=== PATIENT | male | born 1945 | race Caucasian/White ===

== ENCOUNTER 2021-03-21 14:19 | Inpatient (IN) | payer MEDICARE, SELFPAY ==
[2021-03-21 14:28] VITALS: BP 193/71; PULSE 71; RESP 26; TEMP 36.6; O2SAT 89; BMI 25.8
--- NOTE | 2021-03-21 14:47 | XRR_ITS ---
PROCEDURE INFORMATION: Exam: XR Chest Exam date and time: 03/21/2021 2:47 PM Age: 75 years old Clinical indication: Shortness of breath; Additional info: SOB TECHNIQUE: Imaging protocol: XR of the chest. Views: 1 view. COMPARISON: No relevant prior studies available. FINDINGS: Lungs: Right middle lobe and bilateral lower lobe atelectasis and/or pneumonia. Pleural spaces: Small bilateral pleural effusions. No pneumothorax. Heart/Mediastinum: Cardiac silhouette is moderately enlarged. Mediastinal contours are unremarkable. Vasculature: Atherosclerotic changes in the visualized arteries. Bones/joints: Unremarkable for age. XR/XR chest 1V portable [id number] IMPRESSION: 1. Right middle lobe and bilateral lower lobe atelectasis and/or pneumonia. Recommend followup chest x-ray to ensure resolution. 2. Small bilateral pleural effusions. 3. Incidental/nonacute findings are listed in the report.
--- NOTE | 2021-03-21 14:47 | ECG_ITS ---
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 Measurements Intervals [place] Rate: 70 P: [place]: QRS: 43 QRSD: 101 T: 54 QT: 424 QTc: 460 Interpretive Statements ATRIAL FIBRILLATION MODERATE ST DEPRESSION [0.05+ mV ST DEPRESSION] No previous ECG available for comparison Electronically Signed On 03-22-2021 19:12:38 CDT by Renetta Bonilla M.D. [id number]
[2021-03-21] MEDS: aspirin 325 mg Tablet PO (15:12)
--- NOTE | 2021-03-21 15:31 | ED_ITS ---
HPI - SOB/Dyspnea General: Chief Complaint: Shortness of Breath/Dyspnea Stated Complaint: SOB Time Seen by Provider: 03/21/21 14:39 History of Present Illness: HPI Narrative: This patient is a 75 year old male presenting from home with shortness of breath. He has had these symptoms for about 2 months. He has not seen his PCP in [place]. He called for an appointment but was told that she was out for a few weeks. He says that he has had pneumonia a fews times in the past few years and hasn't been back to normal since then. He has been told that he has a touch of emphysema and has had an oxygen concentrator at home, but hasn't had to use it until the last few days. He gets very SOB with laying down - notes that he absolutely can't lay down - and he also gets very short of breath with minimal exertion. Associated symptoms: Reports chest congestion, chest pain and orthopnea; Deny abdominal pain, fever(s), nausea or vomiting Review of Systems General: Reports: 10 or more systems reviewed and unremarkable except in HPI and below Const: Reports: fatigue, malaise and change in sleep pattern; Denies: fever(s) or chills Eyes: Denies: change in vision ENMT: Denies: odynophagia Card: Reports: chest pain, swelling of feet/ankles, dyspnea on exertion and orthopnea Resp: Reports: dyspnea and chest congestion; Denies: productive cough or non-productive cough GI: Denies: abdominal pain, nausea or vomiting : Denies: flank pain Musc: Denies: neck pain or back pain Skin/Breast: Denies: rash Neuro: Denies: headache(s), numbness in extremities or weakness in extremities Zach/Lymph: Denies: easy bruising or easy bleeding Physical Exam Const: COMMON NORMALS: patient oriented x3, no limitations and alert GENERAL APPEARANCE: cooperative and ill appearing NUTRITIONAL APPEARANCE: thin HENMT: HEAD & SCALP: normal to inspection FACE & SINUS: normal facial exam Eye: GENERAL EYE: appearance normal, both eyes and all related structures Neck/C-Spine: COMMON NORMALS: supple, no meningeal signs and no JVD Chest: COMMONS NORMALS: normal inspection of the chest Resp: COMMON NORMALS: normal respiratory effort EFFORT & INSPECTION: Yes uses accessory muscles AUSCULTATION: diminished lung sounds Cardio: COMMON NORMALS: no JVD, regular rate, regular rhythm and No murmurs present (Cardio) RATE: regular rate RHYTHM: regular rhythm GI: COMMON NORMALS: Normal to inspection, nondistended, normoactive bowel sounds present, Soft to palpation and non-tender INSPECTION: Yes normal to inspection AUSCULTATION: Yes normoactive bowel sounds PALPATION: Yes Soft to palpation Back/Pelvis: COMMON NORMALS: thoracic and lumbar spine normal to inspection Extremity: COMMON NORMALS: normal to inspection GENERAL: Yes edema (2+) Neuro: COMMON NORMALS: patient oriented x3, moves all extremities, no focal motor deficits and no sensory deficits noted SENSORIUM/ORIENTATION: Yes alert MENINGEAL SIGNS: Yes no meningeal signs Psych: COMMON NORMALS: mental status grossly normal, cooperative and normal affect Skin: COMMON NORMALS: no rashes or lesions noted and turgor normal GENERAL SKIN EXAM: no rashes or lesions noted and turgor normal Course ED course: Patient with orthopnea, JOHN, peripheral edema - no fever or cough. Suspect CHF. Pleural effusions noted on the CT - unable to give contrast to evaluate for PE. Atelectasis vs infiltrate. Patient requiring oxygen in the ED. He is agreeable to admission. Diuresis may be tricky due to poor renal function. Vital Signs: Vital signs: Vital Signs Temperature 97.9 F 03/21/21 14:28 Pulse Rate 69 03/21/21 18:00 Respiratory Rate 21 H 03/21/21 18:00 Blood Pressure 188/111 03/21/21 17:00 Pulse Oximetry 98 03/21/21 18:00 MDM - SOB/Dyspnea MDM Narrative: Medical decision making narrative: CHF, pneumonia, doubt COVID, COPD, SD Lab Data: Labs: Lab Results 03/21/21 03/21/21 03/21/21 Range/Units 15:39 15:39 15:39 WBC 9.5 (4.0-10.0) 10^3/ uL RBC 4.61 (4.1-5.3) 10^6/u L Hgb 13.1 (11.7-16.6) g/dL Hct 40.8 L (42.0-52.0) % MCV 88.5 (80-94) fl MCH 28.4 (28.0-34.0) pg MCHC 32.1 (30.0-36.0) g/dL RDW 14.9 (12.1-15.1) % Plt Count 229 (130-400) 10^3/c mm MPV 9.5 (7.4-10.4) fL Neut % (Auto) 75.4 % Lymph % (Auto) 16.5 % [place] % (Auto) 6.3 % Eos % (Auto) 0.8 % Baso % (Auto) 0.5 % Neut # (Auto) 7.16 (1.8-7.7) 10^3/u L Lymph # (Auto) 1.6 (0.8-4.8) 10^3/u L [place] # (Auto) 0.6 (0.2-0.9) 10^3/u L Eos # (Auto) 0.1 (0.0-0.8) 10^3/u L Baso # (Auto) 0.1 (0.0-0.1) 10^3/u L Nucleated RBC % (a uto) 0 % Nucleated RBCs # 0.0 /100WBC Sodium 132 L (136-145) mmol/L Potassium 4.0 (3.5-5.1) mmol/L Chloride 94 L (98-107) mmol/L Carbon Dioxide 27 (22-29) mmol/L Anion Gap 15.0 (5-19) BUN 25 H (8-23) mg/dL Creatinine 2.1 H (0.7-1.2) mg/dL GFR Calculation Not Reportable Glucose 137 H (65-115) mg/dL Calculated Osmolal ity 281 L (285-295) mOsm/k g Calcium 8.8 (8.5-10.5) mg/dL Total Bilirubin 0.4 (0.15-1.2) mg/dL AST 14 (0-40) U/L ALT 11 (0-41) U/L Alkaline Phosphata se 62 (40-130) IU/L Troponin T Baselin e 34 H (0-15) ng/L NT-Pro-B Natriuret Pep 5544 H (0-450) pg/mL Total Protein 6.6 (6.6-8.7) g/dL Albumin 4.2 (3.5-5.2) g/dL Globulin 2.4 (1.3-4.6) g/dL Urine Color (Yellow) Urine Appearance (CLEAR) Urine pH (5-7) Ur Specific Gravit y (1.005-1.030) Urine Protein (Negative) Urine Glucose (UA) (Normal) Urine Ketones (Negative) Urine Blood (Negative) Urine Nitrate (Negative) Urine Bilirubin (Negative) Urine Urobilinogen (Negative) mg/dL Ur Leukocyte Rima ase (Negative) Urine RBC (0-2) /hpf Urine WBC (0-5) /hpf Ur Squamous Epith Cells (0-5) /hpf Amorphous Sediment Urine Bacteria (NONE) /hpf 03/21/21 Range/Units 17:16 WBC (4.0-10.0) 10^3/ uL RBC (4.1-5.3) 10^6/u L Hgb (11.7-16.6) g/dL Hct (42.0-52.0) % MCV (80-94) fl MCH (28.0-34.0) pg MCHC (30.0-36.0) g/dL RDW (12.1-15.1) % Plt Count (130-400) 10^3/c mm MPV (7.4-10.4) fL Neut % (Auto) % Lymph % (Auto) % [place] % (Auto) % Eos % (Auto) % Baso % (Auto) % Neut # (Auto) (1.8-7.7) 10^3/u L Lymph # (Auto) (0.8-4.8) 10^3/u L [place] # (Auto) (0.2-0.9) 10^3/u L Eos # (Auto) (0.0-0.8) 10^3/u L Baso # (Auto) (0.0-0.1) 10^3/u L Nucleated RBC % (a uto) % Nucleated RBCs # /100WBC Sodium (136-145) mmol/L Potassium (3.5-5.1) mmol/L Chloride (98-107) mmol/L Carbon Dioxide (22-29) mmol/L Anion Gap (5-19) BUN (8-23) mg/dL Creatinine (0.7-1.2) mg/dL GFR Calculation Glucose (65-115) mg/dL Calculated Osmolal ity (285-295) mOsm/k g Calcium (8.5-10.5) mg/dL Total Bilirubin (0.15-1.2) mg/dL AST (0-40) U/L ALT (0-41) U/L Alkaline Phosphata se (40-130) IU/L Troponin T Baselin e (0-15) ng/L NT-Pro-B Natriuret Pep (0-450) pg/mL Total Protein (6.6-8.7) g/dL Albumin (3.5-5.2) g/dL Globulin (1.3-4.6) g/dL Urine Color Yellow (Yellow) Urine Appearance Clear (CLEAR) Urine pH 7 (5-7) Ur Specific Gravit y 1.005 (1.005-1.030) Urine Protein 1+ H (Negative) Urine Glucose (UA) Norm (Normal) Urine Ketones Negative (Negative) Urine Blood Neg (Negative) Urine Nitrate Negative (Negative) Urine Bilirubin Neg (Negative) Urine Urobilinogen Norm (Negative) mg/dL Ur Leukocyte Rima ase Negative (Negative) Urine RBC None (0-2) /hpf Urine WBC None (0-5) /hpf Ur Squamous Epith Cells None (0-5) /hpf Amorphous Sediment Not Reportable Urine Bacteria None (NONE) /hpf Discharge Plan Discharge Patient Disposition: Admitted As Inpatient Clinical Impression: Congestive heart failure, Pleural effusion, bilateral, Hypoxia, Acute kidney injury Condition: Stable Prescriptions: No Action metformin 500 mg Tablet 500 mg PO BID RF: 0 lisinopril-hydrochlorothiazide 20-12.5 mg Tablet 1 tab PO BID RF: 0 hydralazine 25 mg Tablet 25 mg PO TID RF: 0 amlodipine 10 mg Tablet 10 mg PO DAILY RF: 0 metoprolol tartrate 50 mg Tablet 50 mg PO BID RF: 0 aspirin 81 mg Tablet,Chewable 81 mg PO DAILY RF: 0 doxazosin 2 mg tablet 2 mg PO BEDTIME RF: 0 Referrals: Cristine Raza [Primary Care Provider] - Patient Instructions: Opioid Safety Coding Level of Care Code ED Scrap Drop Operator for Kori Fwd Exam Comprehensive
[2021-03-21 15:50] LABS: Basophils # 0.1 10^3/uL (0.0-0.1); Basophils % 0.5 %; Eosinophils # 0.1 10^3/uL (0.0-0.8); Eosinophils % 0.8 %; Hematocrit 40.8 % (42.0-52.0); Hemoglobin 13.1 g/dL (11.7-16.6); Lymphocytes # 1.6 10^3/uL (0.8-4.8); Lymphocytes % 16.5 %; Mean Corpuscular HGB Conc 32.1 g/dL (30.0-36.0); Mean Corpuscular Hemoglobin 28.4 pg (28.0-34.0); Mean Corpuscular Volume 88.5 fl (80-94); Mean Platelet Volume 9.5 fL (7.4-10.4); Monocytes # 0.6 10^3/uL (0.2-0.9); Monocytes % 6.3 %; Neutrophils # 7.16 10^3/uL (1.8-7.7); Neutrophils % 75.4 %; Nucleated Red Blood Cells % 0 %; Platelet Count 229 10^3/cmm (130-400); Red Blood Count 4.61 10^6/uL (4.1-5.3); Red Cell Distribution Width 14.9 % (12.1-15.1); White Blood Count 9.5 10^3/uL (4.0-10.0)
[2021-03-21 16:00] VITALS: BP 181/87; PULSE 63; RESP 22; O2SAT 98
[2021-03-21 16:24] LABS: Troponin(5th) Baseline 34 ng/L (0-15)
[2021-03-21 16:33] LABS: Alanine Aminotransferase 11 U/L (0-41); Albumin Level 4.2 g/dL (3.5-5.2); Alkaline Phosphatase 62 IU/L (40-130); Aspartate Amino Transferase 14 U/L (0-40); Blood Urea Nitrogen 25 mg/dL (8-23); Calcium 8.8 mg/dL (8.5-10.5); Carbon Dioxide 27 mmol/L (22-29); Chloride 94 mmol/L (98-107); Globulin 2.4 g/dL (1.3-4.6); Glucose 137 mg/dL (65-115); NT Pro B Type Natriuretic Pept 5544 pg/mL (0-450); Osmolality Calculated 281 mOsm/kg (285-295); Sodium 132 mmol/L (136-145); Total Bilirubin 0.4 mg/dL (0.15-1.2); Total Protein 6.6 g/dL (6.6-8.7)
--- NOTE | 2021-03-21 16:48 | CTR_ITS ---
PROCEDURE INFORMATION: Exam: CT Chest Without Contrast; Diagnostic Exam date and time: 03/21/2021 4:48 PM Age: 75 years old Clinical indication: Shortness of breath; Additional info: SOB, abnormal cxr TECHNIQUE: Imaging protocol: Diagnostic computed tomography of the chest without contrast. Sagittal and coronal reformatted images were created and reviewed. Radiation optimization: All CT scans at this facility use at least one of these dose optimization techniques: automated exposure control; mA and/or kV adjustment per patient size (includes targeted exams where dose is matched to clinical indication); or iterative reconstruction. COMPARISON: CR (CHEST, ) 03/21/2021 2:54 PM RADIATION DOSE METRICS: Total DLP (mGy-cm): 824.92 FINDINGS: Limitations: Evaluation of the mediastinum and vasculature is limited without intravenous contrast. Lungs: Tracheobronchial structures are patent. Calcified granulomas in the right upper lobe and righ lower lobe. Compressive atelectasis in the the lungs posteriorly, underlying pneumonia cannot be ruled out. Pleural spaces: Large bilateral pleural effusions. Heart: Moderate enlargement of the heart. Extensive atherosclerotic calcification in the coronary arteries. Calcification of the aortic valve. Mediastinal space: The esophagus is unremarkable. No mediastinal hematoma. No pneumomediastinum. Aorta: Extensive atherosclerotic changes in the visualized arteries. No evidence for aortic aneurysm. Lymph nodes: No lymphadenopathy. Liver: The visualized liver is unremarkable. Gallbladder and bile ducts: Multiple stones in the visualized gallbladder. No dilatation of the visualized bile ducts. Pancreas: The pancreas is unremarkable. No pancreatic ductal dilatation. Spleen: Multiple calcified granulomas in the spleen. Adrenal glands: The right and left adrenal glands are unremarkable. Kidneys and ureters: The visualized right kidney is unremarkable. Mild atrophy of the visualized left kidney. Bones/joints: Multilevel degenerative changes of varying severity in the visualized spine. Calcification of the anterior longitudinal ligament at multiple levels in the thoracic spine, possibly representing diffuse idiopathic skeletal hyperostosis (DISH). Soft tissues: Mild body wall edema. CT/CT chest wo con [id number] IMPRESSION: 1. Large bilateral pleural effusions with compressive atelectasis in the the lungs posteriorly, underlying pneumonia cannot be ruled out. Recommend clinical correlation. Recommend followup chest imaging to insure resolution of these findings. 2. Cholelithiasis. 3. Mild body wall edema. 4. Incidental/nonacute findings are listed in the report. Radiation Dose CTDIVOL = (mGy): DLP = 824.92 (mGy-cm)
--- NOTE | 2021-03-21 16:48 | ECG_ITS ---
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 Measurements Intervals [place] Rate: 75 P: [place]: QRS: 47 QRSD: 88 T: 77 QT: 393 QTc: 439 Interpretive Statements ATRIAL FIBRILLATION Compared to ECG 03/21/2021 15:21:56 ST (T wave) deviation no longer present Electronically Signed On 03-22-2021 19:22:23 CDT by Renetta Bonilla M.D. [id number]
[2021-03-21 17:00] VITALS: BP 188/111; PULSE 67; RESP 19; O2SAT 97
[2021-03-21 17:47] LABS: Add Urine Microscopic? YES; Bilirubin Urine Neg (Negative); Blood Urine Neg (Negative); Glucose Urine UA Norm (Normal); Ketones Urine Negative (Negative); Leukocyte Esterase Urine Negative (Negative); Nitrate Urine Negative (Negative); Protein Urine 1+ (Negative); Specific Gravity, Urine 1.005 (1.005-1.030); Urine Appearance Clear (CLEAR); Urine Color Yellow (Yellow); Urobilinogen Urine Norm (Negative); pH Urine 7 (5-7)
[2021-03-21 17:59] LABS: Add Urine Culture? No
[2021-03-21 18:00] VITALS: PULSE 69; RESP 21; O2SAT 98
--- NOTE | 2021-03-21 18:07 | PM.HP ---
Providers/Chief Complaint Admitting Physician: Lisa Barger MD Primary Care Provider: Cristine Raza Chief Complaint: SOB History of Present Illness Ole Maldonado is a 75 year old male with PMH HTN, BPH presenting today with progressively worsening dyspnea over past 2-3 months, made particularl worse over the past week. Patient states that he was initially unable to climb stairs and was walking less than usual distance however now becoming dyspneic when ambulating within the home. Orthopnea+ He was evaluated at an outside hospital 3 2 months ago for the above symptoms where he was told he has emphysema and suppemetal 02 was recommended for home use, however patient states this was not covered by his insurance and he could not pay the out of pocket cost. He denies being on any inhalers. Endorses being on water pill , per home medication review this appears to be HCTZ. States he was ruled out for pneumonia at that time. Currently denies any chest pain, cough, sputum production or fever. He is an ex smoker quit many years ago. He has additionally noticed B/L LE swelling and abdominal bloating. BP has been poorly controlled at home. Uncertain h/o CAD, states he was told he had a heart attack in the setting of a rib fracture over 20 years ago, however denies ever having had an angiogram or stress test. No h/o knownn CHF. Diagnostics in the ER today show mildly elevated troponin ~30s range with negative delta, BNP 5500, CT chest with large B/L pleural effusions R>L, STEVEN with cr 2.1. He is unvaccinated for Covid 19. Review of Systems General: Reports: 10 or more systems reviewed and unremarkable except in HPI and below Const: Denies: fever(s), chills, body aches, change in appetite, change in weight, malaise, night sweats, diaphoresis, change in sleep pattern, daytime sleepiness or snoring Eyes: Denies: change in vision, blurry vision, photophobia, eye discomfort or eye discharge ENMT: Denies: throat pain, enlarged tonsils, hoarseness, mouth pain, oral sores, dry mouth, tinnitus, nasal congestion or post nasal drip Card: Denies: chest pain, palpitations, irregular heart rhythm, edema, swelling of feet/ankles, lightheadedness, syncope, pre-syncope, dyspnea on exertion, orthopnea, leg pain with exertion or acrocyanosis Resp: Denies: dyspnea, productive cough, non-productive cough, wheezing, stridor, pain on inspiration, change in phlegm color, hemoptysis or chest congestion GI: Denies: abdominal pain, nausea, vomiting, hematemesis, coffee ground emesis, dysphagia, heartburn, diarrhea, constipation, bloating, GI cramping, change in bowel habits, pain on defecation, hematochezia or melena : Denies: flank pain, difficulty urinating, dysuria, urinary frequency, urinary urgency, urinary hesitancy, urinary dribbling, difficulty starting urination, change in urine stream, nocturia or hematuria Musc: Denies: neck pain, back pain, extremity pain, joint pain, joint swelling, joint redness, joint stiffness or limited range of motion Neuro: Denies: headache(s), numbness in extremities, weakness in extremities, sensory changes, lack of coordination, difficulty walking, frequent falls, dizziness, vertigo, confusion, Slurred speech present, difficulty communicating thoughts or seizure-like activity Psych: Denies: anxiety, depression, mood swings, panic attacks, hopelessness or irritability Endo: Denies: polyuria, polydipsia, tired all the time, cold intolerance, excessive sweating, flushing or heat intolerance Zach/Lymph: Denies: easy bruising or easy bleeding All/Imm: Denies: tongue swelling, facial swelling or acute wheezing Medications/Allergies Home Medications Medication Instructions Recorded Confirmed Last Taken Type amlodipine 10 mg PO DAILY 03/21/21 03/21/21 03/20/21 History aspirin 81 mg PO DAILY 03/21/21 03/21/21 03/21/21 History doxazosin 2 mg PO BEDTIME 03/21/21 03/21/21 03/20/21 History hydralazine 25 mg PO TID 03/21/21 03/21/21 03/21/21 History lisinopril-hydrochlorothiazide 1 tab PO BID 03/21/21 03/21/21 03/21/21 History metformin 500 mg PO BID 03/21/21 03/21/21 03/21/21 History metoprolol tartrate 50 mg PO BID 03/21/21 03/21/21 03/21/21 History Allergies Allergy/AdvReac Type Severity Reaction Status Date / Time No Known Allergies Allergy Verified 03/21/21 14:33 PFSH Acute PFSH: Medical History (Updated 03/22/21 @ 05:14 by Juno Durham MD) Diabetes mellitus Hypertension Tobacco abuse Vitals/I&O/Wt Last Vital Signs Temp 97.9 F 03/21/21 14:28 Pulse 67 03/21/21 17:00 Resp 19 H 03/21/21 17:00 BP 188/111 03/21/21 17:00 Pulse Ox 97 03/21/21 17:00 Weight last 48 hrs Weight 77.111 kg Physical Exam Narrative: EXAM NARRATIVE: EXAM NARRATIVE: General: No acute distress, AO x3, NC oxygen supplementation HEENT: PERRLA, pupils bilaterally equal and reactive Chest: B/L reduced air entry at lung bases, no wheezing CVS: S1-S2 regular, no murmurs, no tachycardia, no gallops, no rubs Abdomen: Soft, nontender, no organomegaly, bowel sounds present Neuro: No focal deficits, no facial deformity, AO x3, power 5/5 in all limbs\ EXT: 1+ pitting edema B/L LE Data : 03/21/21 15:39 03/21/21 15:39 A&P Assessment and plan (1) Hypoxia: Status: Acute (2) Pleural effusion, bilateral: Status: Acute (3) Congestive heart failure: Status: Acute (4) Acute kidney injury: Status: Acute (5) Hyponatremia: Status: Acute (6) Hypertension: Status: Acute (7) Diabetes mellitus: Status: Acute Additional A&P Information Hypoxia: Most likely secondary to congestive heart failure. Less likely pneumonia. Patient does not have leukocytosis, fever with history suggestive of orthopnea and PND. Check echocardiogram, troponin series, blood culture, sputum culture, urine Legionella, bacterial antigen, proBNP,MRSA swab, procalcitonin. Start patient on IV Lasix 60 mg twice daily. Strict input output charting. Brito catheter. Daily weights. Fluid restriction. Depending on the echocardiogram if patient has low EF for regional motion wall abnormality will decide about ischemic versus nonischemic work-up with possible stress test once patient is more euvolemic. Oxygen supplementation keeping saturation over 90%. History of COPD: Mild exacerbation. No need of steroids for now. DuoNebs every 6 hour, budesonide twice daily. Bilateral pleural effusion: Right >left. Will obtain thoracentesis with pleural fluid analysis Less likely pneumonia. For now hold off on starting antibiotics. We will continue to monitor for fever, worsening leukocytosis or oxygen requirement before starting antibiotics. Acute kidney injury: Creatinine 2.1. On review of records in 2019 patient's creatinine was within normal limits. Could be secondary to congestive heart failure but cannot rule out hypertensive chronic kidney disease. Check urine lites, urine creatinine, urine eosinophils, renal ultrasound. Medical reconciliation done for nephrotoxic drugs. Hypertension: Goal blood pressure less than 140/90 mmHg. Continue with home antihypertensives including hydralazine, amlodipine, metoprolol. Hold off on lisinopril given STEVEN. Type 2 diabetes mellitus: Check HbA1c, lipid panel. Insulin sliding scale at low-dose protocol. Cardiac carb consistent diet. Heparin for DVT prophylaxis. Famotidine for PUD prophylaxis. Admit to CSU. Attestations Medical Necessity Statement*: Admission for more than 2 midnights for management of new hypoxia most likely secondary to congestive heart failure Time Spent in Patient Care: Greater than 35 minutes (>than 50% of time spent in counselling and/or direct pt care on unit). Coding Level of Care Code Acute Retail Loss Prevention Specialist for [facility] Diagnoses Hypoxia R09.02 Pleural effusion, bilateral J90 Congestive heart failure I50.9 Acute kidney injury N17.9 Hyponatremia E87.1 Hypertension I10 Diabetes mellitus E11.9
[2021-03-21 18:36] LABS: Amphetamines Screen Urine Negative (Negative); Barbiturates Screen Urine Negative (Negative); Benzodiazepines Screen Urine Negative (Negative); Cocaine Screen Urine Negative (Negative); Opiate Screen Urine Negative (Negative); PCP Screen Urine Negative (Negative); THC Screen Urine Negative (Negative)
[2021-03-21 18:51] LABS: SARS Covid-2 Antigen Negative (Negative)
[2021-03-21] MEDS: famotidine 20 mg/2 mL INJ IVP (19:10)
[2021-03-21 19:26] LABS: INR 1.11 (0.8-1.2)
[2021-03-21 19:27] LABS: Potassium, Radom Urine 16 mmol/L; Urine Creatinine 20 mg/dL (39-259); Urine Random Chloride 40 mmol/L; Urine Random Sodium 45 mmol/L
[2021-03-21 19:30] LABS: D Dimer 1.17 ug/mIFEU (0-0.59)
[2021-03-21 19:44] LABS: Troponin 5 2HR 30.23 ng/L (0-15)
[2021-03-21 19:46] LABS: Troponin 5 2HR Delta -3.77 ABS# (0-10)
[2021-03-21 19:50] LABS: Procalcitonin 0.11 ng/mL (0-0.5)
[2021-03-21 19:54] LABS: Thyroid Stimulating Hormone 2.47 uIU/mL (0.27-4.20)
[2021-03-21] MEDS: heparin 5,000 unit/mL INJ 1 mL 5000 UNIT SUBCUT (21:16)
[2021-03-21] MEDS: hyDRALAzine 25 mg Tablet PO (21:18)
[2021-03-21] MEDS: metoprolol tartrate 50 mg Tablet PO (21:18)
[2021-03-21 21:28] VITALS: BP 186/98; PULSE 74; RESP 18; O2SAT 98
[2021-03-21 22:00] LABS: Iron 36 ug/dL (59-158); Percent Saturation 12.9 % (20-50); Total Iron Binding Capacity 278 mcg/dl; Unsaturated Iron Binding 242 ug/dL (112-347)
[2021-03-21] MEDS: doxazosin 1 mg Tablet 2 MG PO (22:03)
[2021-03-21 22:40] LABS: Troponin 5 6HR 33.33 ng/L (0-15)
[2021-03-21 22:48] LABS: Troponin 5 6HR Delta -0.67 ng/L (0-12)
[2021-03-21 23:34] LABS: Eosinophil Urine No Eosinophils Seen; Urine Eosinophil Count 0 (0-0)
[2021-03-22] VITALS (44 sets, daily range): BP systolic 131–180; BP diastolic 60–97; PULSE 55–84; RESP 13–25; TEMP 36.5–36.6; O2SAT 93–99
[2021-03-22] MEDS: FUROsemide 10 mg/mL SDV 10mL 60 MG IVP ×3 (00:14→21:17)
[2021-03-22 05:05] LABS: Basophils # 0.1 10^3/uL (0.0-0.1); Basophils % 0.6 %; Eosinophils # 0.1 10^3/uL (0.0-0.8); Eosinophils % 0.9 %; Hematocrit 38.3 % (42.0-52.0); Hemoglobin 12.3 g/dL (11.7-16.6); Lymphocytes # 2.4 10^3/uL (0.8-4.8); Lymphocytes % 22.7 %; Mean Corpuscular HGB Conc 32.1 g/dL (30.0-36.0); Mean Corpuscular Hemoglobin 28.8 pg (28.0-34.0); Mean Corpuscular Volume 89.7 fl (80-94); Mean Platelet Volume 9.9 fL (7.4-10.4); Monocytes # 0.9 10^3/uL (0.2-0.9); Monocytes % 8.5 %; Neutrophils # 7.11 10^3/uL (1.8-7.7); Neutrophils % 66.7 %; Nucleated Red Blood Cells % 0 %; Platelet Count 223 10^3/cmm (130-400); Red Blood Count 4.27 10^6/uL (4.1-5.3); Red Cell Distribution Width 14.8 % (12.1-15.1); White Blood Count 10.7 10^3/uL (4.0-10.0)
[2021-03-22 05:20] LABS: Alanine Aminotransferase 10 U/L (0-41); Albumin Level 3.8 g/dL (3.5-5.2); Alkaline Phosphatase 54 IU/L (40-130); Anion Gap 12.8 (5-19); Aspartate Amino Transferase 13 U/L (0-40); Blood Urea Nitrogen 22 mg/dL (8-23); Calcium 8.6 mg/dL (8.5-10.5); Carbon Dioxide 31 mmol/L (22-29); Chloride 98 mmol/L (98-107); Chol HDL Ratio 2.42 mg/dL (1.0-5.00); Cholesterol 145 mg/dL (0-200); Globulin 2.2 g/dL (1.3-4.6); Glucose 93 mg/dL (65-115); HDL Cholesterol 60 mg/dL (60-100); LDL Cholesterol Calculated 68 mg/dL (50-129); Magnesium 1.9 mg/dL (1.7-2.3); Osmolality Calculated 289 mOsm/kg (285-295); Phosphorus 3.3 mg/dL (2.5-4.5); Potassium 3.8 mmol/L (3.5-5.1); Sodium 138 mmol/L (136-145); Total Bilirubin 0.6 mg/dL (0.15-1.2); Triglycerides 85 mg/dL (0-150); VLDL Cholestrol Calculation 17 mg/dL (0-30)
[2021-03-22 05:22] LABS: Lactate Dehydrogenase 145 U/L (135-225)
[2021-03-22 05:39] LABS: Estmated Average Glucose 123; Hemoglobin A1C 5.9 % (4.0-6.0)
--- NOTE | 2021-03-22 08:39 | PC.CHAP ---
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 mixer and scaler visit [] Patient/Family/Request visit [] Outpatient visit [] Follow-up visit [] Physician referral [] Code/Alert [x] Routine visit [] Staff referral [] Actively dying [] Patient sleeping [] Family support [] [] Out of room [] Palliative care [] [] Receiving care in room [] Pre-surgical visit [] Trauma [] Long length of stay [] ICU visit [] Other: Relational/Emotional Strength [] Patient feels connected with others/family/visitors/staff [] Distress [] Loneliness/isolation [] Abandonment Spirituality of Patient [] Person of Eulalia [] Attends Islam of their Eulalia [] Believes in Prayer [] Reads Bible or Oriental Orthodox materials [] There are Spiritual issues to be addressed Supervisor Abattoir Interventions [x] Prayer [x] Active listening [x] Non-anxious presence [x] Spiritual/emotional support [] Crisis/trauma care [] Spiritual counseling [] Bereavement support [] Provided bereavement packet [] Provided Bible/devotional materials [] Provided toy/stuffed animal, coloring book to patient or family member [] Provided Communion [] Anointing/[place] [] Salvation [x] Completed spiritual assessment [] Other: Impact on Illness or Injury [] Angry [] Fearful [] Anxious [] Often cries [] Exhaustion [] Unable to work [] Unable to attend church [] Unable to walk/stand [] Unable to read [] Unable to drive [] Unable to eat/drink [] Unable to sleep [] Unable to be with family [] Patient intubated [] Other: Summary patient just arrived to room... not sure of issues, just doesnt feel well Time spent with patient 10 min
[2021-03-22] MEDS: ipratropium-albuterol 3 mL Neb INHALATION ×4 (09:07→19:50)
--- NOTE | 2021-03-22 09:30 | PM.PN ---
Documented by User: RICH Amaya STDNT 03/22/21 14:03 Subjective Subjective: Interval history: Joel states that he feels better this morning. His shortness of breath has improved. He is currently on 2 L of oxygen, this is his normal at home. He denies fever, chills, chest pain and productive cough. His lower extremity edema has improved. Medications: Reviewed: Yes Vitals/I&O/Wt Last Vital Signs Temp 97.9 F 03/21/21 14:28 Pulse 68 03/22/21 09:13 Resp 16 03/22/21 09:13 BP 162/97 03/22/21 07:56 Pulse Ox 97 03/22/21 09:13 Weight last 48 hrs Weight 77.111 kg Physical Exam Narrative: EXAM NARRATIVE: General: No acute distress, NC oxygen supplementation 2 L HEENT: Pupils reactive, oropharynx clear. Neck supple no JVD or lymphadenopathy. Chest: B/L reduced air entry at lung bases, no wheezing. Cardio: Irregularly irregular rhythm. No murmurs. Abdomen: Distended, nontender, no organomegaly, bowel sounds present. Neuro: No focal deficits, no facial deformity, AO x3, strength 5/5 in all limbs EXT: No cyanosis, clubbing, or edema. Brito noted. Urinary Catheter Management^: Brito: Cath Placed During This Visit: yes Urinary Catheter Date of Insertion: 03/21/21 Urinary Catheter Time of Insertion: 23:27 Data : 03/22/21 04:40 03/22/21 04:40 Micro: Microbiology 03/21/21 17:16 Bacterial Antigens - Final Urine Kidney 03/21/21 17:16 Legionella Urinary Antigen - Final Urethra 03/21/21 18:53 Blood Culture - Preliminary Blood SPECIMEN COLLECTED 03/21/21 18:47 Blood Culture - Preliminary Blood SPECIMEN COLLECTED Other data: Hemoglobin A1c 5.9 Magnesium 1.9 LDH 145 Troponin 34. Troponin T 120-minute 30.23. Delta troponin -3.77. Triglycerides 85, cholesterol 145, LDL 68, VLDL 17, HDL 60 Procalcitonin 0.1 TSH 2.47 Urine eosinophils negative Legionella urinary antigen negative Urine bacterial antigens negative Blood cultures pending A&P Assessment and plan (1) Hypoxia: Status: Acute (2) Pleural effusion, bilateral: Status: Acute (3) Congestive heart failure: Status: Acute (4) Acute kidney injury: Status: Acute (5) Hyponatremia: Status: Acute (6) Hypertension: Status: Acute (7) Diabetes mellitus: Status: Acute Additional A&P Information Hypoxia: Most likely secondary to congestive heart failure. Less likely pneumonia. Patient does not have leukocytosis, productive cough, or fever. Has history orthopnea and PND. Urine Legionella negative. Urine bacterial antigen negative. Blood cultures pending. Currently on 2 L oxygen NC. Oxygen supplementation to keep saturation over 90%. Continue patient on IV Lasix 60 mg twice daily. Strict input output charting. Brito catheter. Daily weights. Fluid restriction. Echo pending. History of COPD: DuoNebs every 6 hour. Bilateral pleural effusion: Right >left. Thoracentesis planned for tomorrow with pleural fluid analysis. Aspirin and heparin have been discontinued. Less likely pneumonia. For now hold off on starting antibiotics. We will continue to monitor for fever, worsening leukocytosis or oxygen requirement before starting antibiotics. Acute kidney injury: Creatinine 2.2. On review of records in 2019 patient's creatinine was within normal limits. Medical reconciliation done for nephrotoxic drugs. Hypertension: Goal blood pressure less than 140/90 mmHg. Continue with home antihypertensives including hydralazine, amlodipine, metoprolol. Hold off on lisinopril given STEVEN. Type 2 diabetes mellitus: Hgb A1c 5.9 Insulin sliding scale at low-dose protocol. Cardiac carb consistent diet. Hold heparin for DVT prophylaxis. Famotidine for PUD prophylaxis. 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 Other Attestations: Patient seen and examined independently. He is feeling better today. Edema appears to be decreasing. Still somewhat dyspneic, difficulty catching deep breaths. Discussed with him holding aspirin, seeking thoracentesis. He is agreeable. Continue diuretic at this time. Monitor I&O. Continue to wean oxygen as tolerating. Plan for thoracentesis. He likely may not need to stay long in the hospital, however, cannot return home at this time as neither he nor his son drive and would have difficulty getting to follow-up. General: Awake, alert, pleasant, conversant. HEENT: NC. AT. Pupils equal, reactive to light. Card: RRR, no M/R/G Pulmonary: Diminished air entry at bases Abdomen: Soft, NT, ND Ext: No peripheral edema. 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
[2021-03-22] MEDS: famotidine 20 mg/2 mL INJ IVP (10:07)
[2021-03-22] MEDS: heparin 5,000 unit/mL INJ 1 mL 5000 UNIT SUBCUT (10:07)
[2021-03-22] MEDS: hyDRALAzine 25 mg Tablet PO ×3 (10:08→20:29)
[2021-03-22] MEDS: ferrous gluconate 324 mg Tablet PO ×2 (10:08→18:39)
[2021-03-22] MEDS: amlodipine 10 mg Tablet PO (10:09)
[2021-03-22] MEDS: metoprolol tartrate 50 mg Tablet PO ×2 (10:09→18:38)
[2021-03-22 10:30] LABS: Glucose Point of Care 79 mg/dL (70-110)
--- NOTE | 2021-03-22 17:52 | USCV_ITS ---
Ole Maldonado Age: 75 Gender: M : 1945 Exam Date: 03/22/2021 14:07 Ordering Phys: Juno Durham MD Technologist: [place] [facility] [place]: [place]B BP: 166 / 72 HR: 64 Rhythm: Sinus Technical Quality: Technically difficult study MEASUREMENTS (Male / Female) Normal Values 2D ECHO LV Diastolic Diameter PLAX 4.3 cm 4.2 - 5.9 / 3.9 - 5.3 cm LV Systolic Diameter PLAX 3.1 cm IVS Diastolic Thickness 1.3 cm 0.6 - 1.0 / 0.6 - 0.9 cm IVS Systolic Thickness 1.5 cm LVPW Diastolic Thickness 1.1 cm 0.6 - 1.0 / 0.6 - 0.9 cm LVPW Systolic Thickness 1.6 cm LVOT Diameter 2.0 cm LV Ejection Fraction 2D Teich 55.5 % LA Diameter 4.1 cm Aorta at Sinotubular Diameter 2.7 cm DOPPLER AV Peak Velocity 123.0 cm/s LVOT Peak Velocity 72.3 cm/s AV Area Cont Eq vti 1.9 cm squared AV Area Cont Eq pk 1.8 cm squared MV Area PHT 5.0 cm squared Mitral E to A Ratio 2.2 MV E' Velocity 85.0 cm/s TR Peak Velocity 197.0 cm/s TR Peak Gradient 15.5 mmHg FINDINGS Left Ventricle Technically difficult study. Only subcostal views were obtained. Possibly normal LV size and ejection fraction Right Ventricle Possibly of normal size Right Atrium Possibly normal size Left Atrium Really normal size Mitral Valve No gross abnormalities noted Aortic Valve Appears to be thickened. Leaflet morphology could not be identified well Tricuspid Valve No gross abnormalities noted Pulmonic Valve Pericardium No pericardial or pleural effusion. Aorta Normal aortic annulus size. CONCLUSIONS Possibly normal LV size and ejection fraction . No pericardial effusion Possibly normal chamber sizes Aortic valve appears to be thickened Technically difficult and limited study. Only subcostal views were obtained Dr June Coulter MD [facility] (Electronically Signed) Final Date: 23 March 2021 01:22 S
[2021-03-22 18:30] LABS: Glucose Point of Care 149 mg/dL (70-110)
[2021-03-22] MEDS: famotidine 20 mg Tablet PO (18:39)
--- NOTE | 2021-03-22 19:42 | PC.NURSE ---
Verbal order was given to hold aspirin per Dr. Espitia. Order was confirmed to administer Heparin SubQ per .
[2021-03-22 20:27] LABS: Glucose Point of Care 153 mg/dL (70-110)
[2021-03-22] MEDS: ondansetron 2 mg/ML SDV 2 mL 4 MG IVP (20:29)
[2021-03-22] MEDS: doxazosin 1 mg Tablet 2 MG PO (21:18)
[2021-03-23] VITALS (12 sets, daily range): BP systolic 118–163; BP diastolic 55–80; PULSE 65–93; RESP 1–24; TEMP 36.8–37.1; O2SAT 90–98
[2021-03-23] MEDS: ondansetron 2 mg/ML SDV 2 mL 4 MG IVP ×2 (04:48→20:02)
[2021-03-23 05:24] LABS: Basophils % 0.1 %; Eosinophils % 0.1 %; Hematocrit 41.3 % (42.0-52.0); Hemoglobin 13.1 g/dL (11.7-16.6); Lymphocytes # 1.1 10^3/uL (0.8-4.8); Lymphocytes % 7.9 %; Mean Corpuscular HGB Conc 31.7 g/dL (30.0-36.0); Mean Corpuscular Hemoglobin 28.4 pg (28.0-34.0); Mean Corpuscular Volume 89.4 fl (80-94); Mean Platelet Volume 9.9 fL (7.4-10.4); Monocytes % 7.7 %; Neutrophils # 11.15 10^3/uL (1.8-7.7); Neutrophils % 83.6 %; Nucleated Red Blood Cells % 0 %; Platelet Count 232 10^3/cmm (130-400); Red Blood Count 4.62 10^6/uL (4.1-5.3); Red Cell Distribution Width 14.8 % (12.1-15.1); White Blood Count 13.4 10^3/uL (4.0-10.0)
[2021-03-23 05:43] LABS: Anion Gap 14.5 (5-19); Blood Urea Nitrogen 27 mg/dL (8-23); Calcium 8.7 mg/dL (8.5-10.5); Carbon Dioxide 32 mmol/L (22-29); Chloride 97 mmol/L (98-107); Glucose 133 mg/dL (65-115); Osmolality Calculated 297 mOsm/kg (285-295); Potassium 3.5 mmol/L (3.5-5.1); Sodium 140 mmol/L (136-145)
--- NOTE | 2021-03-23 06:01 | PC.NURSE ---
patient has been nauseous this shift, having 4 emesis of about 200 each, I have given PRN zofran twice this shift. patient is currently NPO at this time for upcoming thoracentesis at 1000 this AM.
--- NOTE | 2021-03-23 09:57 | XR_ITS ---
WS: [id number] PORTABLE CHEST HISTORY: post thoracentesis COMPARISON: 03/21/2021 No pneumothorax status post RIGHT thoracentesis. Improvement in the aeration. There is persistent atelectasis at the RIGHT lung base. LEFT lung is wel l-aerated. Previously described effusion is no longer as apparent. Cardiac size: Normal. Mediastinum/Aorta: Mild atherosclerosis aorta. No osseous abnormality seen. XR/XR chest 1V portable [id number] IMPRESSION: 1. No pneumothorax status post RIGHT thoracentesis. 2. Minimal subsegmental atelectasis persists at the RIGHT lung base and very s mall effusion.
--- NOTE | 2021-03-23 10:00 | US_ITS ---
WS: [id number] ULTRASOUND-GUIDED THORACENTESIS, RIGHT. HISTORY: large pleural effusion R>L, dyspnea Procedure, risks, and complications were explained to the patient. With the patient in an upright pos ition, the skin over the RIGHT posterior thorax was cleansed with ChloraPrep and anesthetized with 1% buffered lidocaine. A 5 Lao Yueh needle is inserted into the pleural fluid without complication. Approximately 1000 cc of dark yellow pleural fluid is removed without difficulty. Pleural fluid specimen collected for analysis as requested. / thoracentesis [id number] IMPRESSION: 1. RIGHT thoracentesis yielding 1000 cc of fluid. 2. Chest radiograph to follow to evaluate for pneumothorax. 3. Pleural fluid specimen collected for analysis as requested.
[2021-03-23 10:27] LABS: Body Fluid Polynuclear #Cells 0.043; Body Fluid WBC 182 /uL; Monocytes # Body Fluid 0.139; RBC, Body Fluid 0 10^3/uL
[2021-03-23 10:48] LABS: Albumin Body Fluid 1.7 g/dL; Amylase Body Fluid 35 U/L; Cholesterol Body Fluid 31 mg/dL (0-200); Fluid Alkaline Phos. 5 IU/L; LDH Body Fluid 62 U/L; Total Protein Pleural Fluid 2.2 g/dL; Triglycerides Body Fluid 14 mg/dL (0-150); Uric Acid Body Fluid 9 mg/dL
[2021-03-23 10:52] LABS: Apprearance, Body Fluid CLEAR; Body Fluid Specific Gravity 1.005; Color, Body Fluid PALE YELLOW; PATH Referral YES
[2021-03-23] MEDS: ferrous gluconate 324 mg Tablet PO ×2 (10:53→18:30)
[2021-03-23] MEDS: famotidine 20 mg Tablet PO ×2 (10:53→18:31)
[2021-03-23] MEDS: amlodipine 10 mg Tablet PO (10:54)
[2021-03-23] MEDS: metoprolol tartrate 50 mg Tablet PO ×2 (10:54→18:31)
[2021-03-23] MEDS: hyDRALAzine 25 mg Tablet PO ×3 (10:54→21:37)
--- NOTE | 2021-03-23 10:59 | P.PN_ITS ---
Documented by User: RICH Amaya STDNT 03/23/21 13:53 Subjective Subjective: Interval history: Ole is doing okay. He does feel better after right thoracentesis performed this morning. Peripheral edema improving. He complains of nausea and vomiting. He denies chest pain and productive cough. He has not had a bowel movement since admission. Medications: Reviewed: Yes Vitals/I&O/Wt Last Vital Signs Temp 98.7 F 03/23/21 07:26 Pulse 93 03/23/21 08:16 Resp 16 03/23/21 08:16 BP 139/55 03/23/21 07:26 Pulse Ox 96 03/23/21 08:16 03/22/21 03/23/21 03/23/21 22:59 06:59 14:59 Output Total 2400 / 2400 1100 / 3500 Balance -2400 / -2400 -1100 / -3500 Weight last 48 hrs Weight 95.481 kg Weight 77.111 kg Physical Exam Narrative: EXAM NARRATIVE: General: No acute distress, NC oxygen supplementation 2 L HEENT: Pupils reactive, oropharynx clear. Neck supple no JVD or lymphadenopathy. Chest: B/L reduced air entry at lung bases, no wheezing. Cardio: Regular rate and rhythm. No murmurs, rubs, gallops. Abdomen: Soft, mild suprapubic tenderness. No organomegaly, bowel sounds present. Neuro: No focal deficits, no facial deformity, AO x3, strength 5/5 in all limbs EXT: No cyanosis, clubbing, or edema. Brito noted. Urinary Catheter Management^: Brito: Cath Placed During This Visit: yes Reason for Continuing Indwelling Catheter: Accurate Measurement of Urinary Output in Critically Ill Patients Urinary Catheter Date of Insertion: 03/21/21 Urinary Catheter Time of Insertion: 23:27 Data : 03/23/21 04:34 03/23/21 04:34 Micro: Microbiology 03/21/21 18:53 Blood Culture - Preliminary Blood NEGATIVE TO DATE 03/21/21 18:47 Blood Culture - Preliminary Blood NEGATIVE TO DATE 03/21/21 18:15 MRSA Culture - Final Nose 03/21/21 17:16 Bacterial Antigens - Final Urine Kidney 03/21/21 17:16 Legionella Urinary Antigen - Final Urethra Other data: Pleural fluid: Right thoracentesis yielding 1000 cc of pale yellow clear fluid. Suggestive transudative effusion. LDH 62. pH 8. White blood cells 182. Red blood cells 0. Glucose 141. Albumin 1.7. Amylase 35. Cholesterol 31. Triglycerides 14. Uric acid 9. Total protein 2.2. Chest x-ray confirms no right pneumothorax post thoracentesis Echo ejection fraction 55.5%. Blood cultures negative to date. MRSA PCR negative. A&P Assessment and plan (1) Hypoxia: Status: Acute (2) Pleural effusion, bilateral: Status: Acute (3) Congestive heart failure: Status: Acute (4) Acute kidney injury: Status: Acute (5) Hyponatremia: Status: Acute (6) Hypertension: Status: Acute (7) Diabetes mellitus: Status: Acute Additional A&P Information Hypoxia: Most likely secondary to congestive heart failure. Less likely pneumonia. Patient does not have leukocytosis, productive cough, or fever. Has history orthopnea and PND. Urine Legionella negative. Urine bacterial antigen negative. MRSA PCR negative. Blood cultures pending. Currently on 2 L oxygen NC. This is his baseline at home. Oxygen supplementation to keep saturation over 90%. Wean as tolerated. Hold Lasix secondary to worsening kidney function. Creatinine 2.7 today. Peripheral edema improved. R thoracentesis performed today. Strict input output charting. Daily weights. Echo ejection fraction 55.5%. Normal chamber sizes. Aortic valve appears thickened. History of COPD: DuoNebs every 6 hour. Bilateral pleural effusion: Right >left. Right thoracentesis performed this AM. Patient feels better afterwards. Pleural fluid analysis suggestive of transudative effusion. LDH 62. Glucose 141. WBC 182. L pleural effusion has improved. No thoracentesis warranted. Less likely pneumonia. We will continue to monitor for fever, worsening leukocytosis or oxygen requirement before starting antibiotics. Acute kidney injury: Creatinine 2.7. Hold Lasix. Medical reconciliation done for nephrotoxic drugs. Hypertension: Goal blood pressure less than 140/90 mmHg. Continue with home antihypertensives including hydralazine, amlodipine, metoprolol. Hold off on lisinopril given STEVEN. Type 2 diabetes mellitus: Hgb A1c 5.9 Insulin sliding scale at low-dose protocol. Suprapubic tenderness on physical exam, will get UA to rule out UTI. Cardiac carb consistent diet. Re-start heparin for DVT prophylaxis. Famotidine for PUD prophylaxis. 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 Other Attestations: He is doing a little bit better after thoracentesis. Edema has subsided. Per discussion with radiology insufficient fluid on the left side to try thoracentesis there. Appears the large amount of fluid that was there previously has resolved with diuresis. However, today he is having additional nausea, some small vomiting. Poor jannette etite, has not take anything by mouth. Yesterday was having some abdominal pain particularly in the right lower quadrant. Discussed with him and his son at bedside we will pursue additional imaging with CT scan. UA does show microscopic hematuria. Will request urine culture. On follow-up of CT abdomen pelvis appears to have small bowel obstruction. Change diet to n.p.o. Reported had not had a bowel movement in several days. Dulcolax given. Discussed with nursing staff, so far not having additional vomiting since shift change. Discussed in case of worsening discomfort and feels like going to vomiting, or vomiting, to place NGT to LIS. Discussed with him and his son some worsening of acute kidney injury as well, creatinine increased up to 2.7. Hold off any additional diuretics. GEN: Awake, alert, Tracy in hands. Not in distress. Son at bedside. HEENT: Pupils equal. No JVD. Cardiac: RRR, no M/R/G Pulmonary: CTAB Abdo: Minimal tenderness RLQ. Not significantly distended. Soft. 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
[2021-03-23] MEDS: bisacodyl 5 mg Tablet 10 MG PO (11:04)
--- NOTE | 2021-03-23 13:00 | PC.NURSE ---
Pt lying in bed resting with eyes closed no signs of pain or discomfort. Resp even and non-labored. No needs voiced. will cont to monitor.
--- NOTE | 2021-03-23 15:30 | CT_ITS ---
WS: [id number] CT ABDOMEN AND PELVIS NONCONTRAST HISTORY: nausea, vomiting, STEVEN TECHNIQUE: Imaging performed through the abdomen and pelvis. Coronal and sagittal reformats are submi tted. All CT scans at [facility] use at least one of these dose optimization techniques: auto mated exposure control; mA and/or kV adjustment per patient size (includes targeted exams where dose is matched to clinical indication); or iterative reconstruction. DLP: 937.46 mGy.cm COMPARISON: None available. Lower thorax: Small bilateral pleural effusions. Compressive atelectasis in lung bases. Moderate enla rgement the heart. Liver: Normal size liver. No mass or bile duct dilatation. Gallbladder: Numerous stones within the gallbladder. No adjacent inflammation. No bowel dilatation. Pancreas: Normal size and attenuation. Normal pancreatic duct. No pancreatitis or mass. Spleen: Normal size with granulomata. Adrenal glands: Mild thickening of the adrenal glands. No mass. Right kidney: No renal obstruction or calcification. Cyst in the central kidney measures 2.3 cm. Left kidney: Mild atrophy LEFT kidney. No obstruction. Aorta: Mild atherosclerosis abdominal aorta with no aneurysm. No free fluid, intraperitoneal air or significant lymphadenopathy. GI tract: Moderate distention of the small bowel loops. Stomach is also distended with fluid. No dila tation of the colon. Changing caliber of the small bowel loops within the RIGHT mid abdomen. Distal s mall bowel loops are collapsed. No ischemic changes. Abdominal wall: Negative. No hernia. Pelvis: Brito catheter in the urinary bladder. There is air in the urinary bladder probably from the Brito catheter insertion. Prostate gland is enlarged with central calcifications. Osseous structures: Advanced degenerative changes throughout the lumbar spine. No osteoblastic or ost eolytic bone disease. RIGHT SI joint is fused. CT/CT kidney stone [id number] IMPRESSION: 1. High-grade small bowel obstruction. Transition point in the RIGHT mid abdom en. No ischemic changes. 2. Cholelithiasis without acute cholecystitis. 3. Small bilateral pleural effusions. 4. Moderate to severe abdominal atherosclerosis with calcifications extending into the mesenteric arteries. 5. Sigmoid diverticulosis without acute diverticulitis.
[2021-03-23] MEDS: bisacodyl 10 mg Supp PR (16:41)
[2021-03-23 17:03] LABS: Procalcitonin 0.13 ng/mL (0-0.5)
[2021-03-23 17:41] LABS: Lipase 27 U/L (13-60)
[2021-03-23 18:00] LABS: Glucose Point of Care 135 mg/dL (70-110)
[2021-03-23 18:27] LABS: Glucose Urine UA Norm (Normal); Protein Urine 3+ (Negative); Urine Appearance Hazy (CLEAR); Urine Color Straw (Yellow); pH Urine 5 (5-7)
[2021-03-23 18:28] LABS: Add Urine Microscopic? YES; Bilirubin Urine Neg (Negative); Blood Urine 3+ (Negative); Ketones Urine Negative (Negative); Leukocyte Esterase Urine 1+ (Negative); Nitrate Urine Negative (Negative); RBC Urine 25-40 /hpf (0-2); Urobilinogen Urine 1 mg/dL (Negative)
[2021-03-23 18:29] LABS: Add Urine Culture? No; Bacteria Urine TRACE /hpf; Mucus Urine TRACE /hpf
[2021-03-23 18:36] LABS: Glucose Point of Care 134 mg/dL (70-110)
[2021-03-23 21:13] LABS: Glucose Point of Care 118 mg/dL (70-110)
[2021-03-23] MEDS: doxazosin 1 mg Tablet 2 MG PO (21:37)
[2021-03-24] VITALS (16 sets, daily range): BP systolic 119–161; BP diastolic 61–92; PULSE 63–78; RESP 14–19; TEMP 36.6–36.7; O2SAT 93–99
[2021-03-24 05:03] LABS: Basophils % 0.3 %; Eosinophils % 0.3 %; Hematocrit 37.3 % (42.0-52.0); Hemoglobin 12.1 g/dL (11.7-16.6); Lymphocytes # 1.8 10^3/uL (0.8-4.8); Lymphocytes % 15.8 %; Mean Corpuscular HGB Conc 32.4 g/dL (30.0-36.0); Mean Corpuscular Hemoglobin 28.5 pg (28.0-34.0); Mean Corpuscular Volume 87.8 fl (80-94); Mean Platelet Volume 10.3 fL (7.4-10.4); Monocytes # 1.2 10^3/uL (0.2-0.9); Monocytes % 11.1 %; Neutrophils # 8.11 10^3/uL (1.8-7.7); Neutrophils % 72.1 %; Nucleated Red Blood Cells % 0 %; Platelet Count 207 10^3/cmm (130-400); Red Blood Count 4.25 10^6/uL (4.1-5.3); Red Cell Distribution Width 14.7 % (12.1-15.1); White Blood Count 11.2 10^3/uL (4.0-10.0)
[2021-03-24 05:23] LABS: Blood Urea Nitrogen 32 mg/dL (8-23); Carbon Dioxide 34 mmol/L (22-29); Chloride 95 mmol/L (98-107); Glucose 95 mg/dL (65-115); Osmolality Calculated 293 mOsm/kg (285-295); Sodium 138 mmol/L (136-145)
[2021-03-24 05:27] LABS: Anion Gap 12.6 (5-19); Potassium 3.6 mmol/L (3.5-5.1)
[2021-03-24 06:48] LABS: Glucose Point of Care 87 mg/dL (70-110)
--- NOTE | 2021-03-24 07:12 | PC.NURSE ---
Shift Note Frequent safety and comfort rounds continue. Orders and/or nursing care completed as indicated. Patient monitored for response to intervention and treatment(s). Education provided includes plan of care. Patient and/or sales representative education courses verbalized understanding. Will continue to monitor.
--- NOTE | 2021-03-24 07:13 | PC.NURSE ---
late entry, pt given zofran appx 1999 last night for nausea and vomitting, spoke to Dr Espitia later during the night and received order to place NGT if pt had more vomiting, pt had no further episodes of vomiting and no c/o nausea
[2021-03-24] MEDS: ipratropium-albuterol 3 mL Neb INHALATION ×4 (07:22→19:20)
[2021-03-24] MEDS: amlodipine 10 mg Tablet PO (10:01)
[2021-03-24] MEDS: metoprolol tartrate 50 mg Tablet PO ×2 (10:01→17:56)
[2021-03-24] MEDS: ferrous gluconate 324 mg Tablet PO ×2 (10:01→17:56)
[2021-03-24] MEDS: hyDRALAzine 25 mg Tablet PO ×3 (10:02→22:13)
[2021-03-24] MEDS: famotidine 20 mg Tablet PO ×2 (10:02→17:56)
--- NOTE | 2021-03-24 10:51 | PC.SOCIAL ---
IMM Update Page 2 of IMM updated in the chart and given to patient. Initialed, dated and signed and copy placed in chart.
--- NOTE | 2021-03-24 10:52 | P.PN_ITS ---
Documented by User: Ana Quach RICH STDNT 03/24/21 11:55 Subjective Subjective: Interval history: Ole is doing okay requiring 1 L oxygen NC. Reports he did not get much sleep last night. Nausea and vomiting have improved. Denies bowel movement or flatulence. Will remain n.p.o. He was hoping to go home today, need for hospitalization due to small bowel obstruction was explained. Medications: Reviewed: Yes Vitals/I&O/Wt Last Vital Signs Temp 97.9 F 03/24/21 08:00 Pulse 78 03/24/21 08:00 Resp 18 03/24/21 08:00 BP 156/67 03/24/21 08:00 Pulse Ox 98 03/24/21 08:00 03/23/21 03/24/21 03/24/21 22:59 06:59 14:59 Intake Total 500 / 500 Output Total 500 / 500 250 / 750 Balance 0 / 0 -250 / -250 Weight last 48 hrs Weight 93.349 kg Weight 95.481 kg Physical Exam Narrative: EXAM NARRATIVE: General: No acute distress, NC oxygen paez pplementation 1 L HEENT: Pupils reactive, oropharynx clear. Neck supple no JVD or lymphadenopathy. Chest: B/L reduced air entry at lung bases, no wheezing. Cardio: Regular rate and rhythm. No murmurs, rubs, gallops. Abdomen: Soft, mild RLQ tenderness. No organomegaly, bowel sounds present. Neuro: No focal deficits, no facial deformity, AO x3, strength 5/5 in all limbs EXT: No cyanosis, clubbing, or edema. Brito noted. Urinary Catheter Management^: Brito: Cath Placed During This Visit: yes Reason for Continuing Indwelling Catheter: Accurate Measurement of Urinary Output in Critically Ill Patients Urinary Catheter Date of Insertion: 03/21/21 Urinary Catheter Time of Insertion: 23:27 Data : 03/24/21 04:16 03/24/21 04:16 Micro: Microbiology 03/23/21 09:57 Gram Stain - Final Pleural Fluid Body Fluid Culture - Preliminary Other data: CT abdomen and pelvis showed high-grade small bowel obstruction with no ischemic changes. Sigmoid diverticulosis. Cholelithiasis without acute cholecystitis. Blood cultures negative to date. Pleural fluid culture negative to date. A&P Assessment and plan (1) Hypoxia: Improved. Most likely secondary to congestive heart failure. Less likely pneumonia. Patient does not have leukocytosis, productive cough, or fever. Has history orthopnea and PND. Urine Legionella negative. Urine bacterial antigen negative. MRSA PCR negative. Blood cultures negative to date.. Currently on 1 L oxygen NC. Baseline 2 L at home. Oxygen supplementation to keep saturation over 90%. Wean as tolerated. Continue to hold Lasix secondary to worsening kidney function. Creatinine 2.7 today. Peripheral edema resolved. R thoracentesis performed yesterday. Left pleural effusion improved with diuresis no thoracentesis was needed. Strict input output charting. Daily weights. Echo ejection fraction 55.5%. Normal chamber sizes. Aortic valve appears thickened. History of COPD: DuoNebs every 6 hour. Status: Acute (2) Pleural effusion, bilateral: Improved. Oxygen requirement weaning down. Right >left. Right thoracentesis performed yesterday. Patient felt better afterwards. Pleural fluid analysis suggestive of transudative effusion. LDH 62. Glucose 141. WBC 182. Cultures pending. Left pleural effusion improved with diuresis no thoracentesis was needed. Less likely pneumonia. We will continue to monitor for fever, worsening leukocytosis or oxygen requirement before starting antibiotics. Status: Acute (3) Congestive heart failure: Status: Acute (4) Acute kidney injury: Creatinine 2.7. continue to hold Lasix. Medical reconciliation done for nephrotoxic drugs. Status: Acute (5) Hyponatremia: Resolved. Status: Acute (6) Hypertension: Goal blood pressure less than 140/90 mmHg. Continue with home antihypertensives including hydralazine, amlodipine, metoprolol. Hold off on lisinopril given STEVEN. Status: Acute (7) Diabetes mellitus: Hgb A1c 5.9 Insulin sliding scale at low-dose protocol. Status: Acute Additional A&P Information Small bowel obstruction: CT demonstrated high grade small bowel obstruction. Patient has mild RLQ tenderness. Nausea and vomiting have improved. Has not had a bowel movement since admission. We will give another suppository today. Monitor for flatulence and bowel movement. NG tube was not needed overnight, will remain n.p.o. He was hoping to go home today, need for hospitalization due to small bowel obstruction was explained. heparin for DVT prophylaxis. Famotidine for PUD prophylaxis. Full code Coding Level of Care Code Acute Pediatric Lpn for [facility] Fwd Diagnoses Hypoxia R09.02 Pleural effusion, bilateral J90 Congestive heart failure I50.9 Acute kidney injury N17.9 Hyponatremia E87.1 Hypertension I10 Diabetes mellitus E11.9 Documented by User: Garry Espitia MD 03/24/21 19:58 Physical Exam Urinary Catheter Management^: Brito: Cath Placed During This Visit: no Data : 03/24/21 04:16 03/24/21 04:16 Attestations Medical Necessity Statement*: Continue admission for assessment and management of small bowel obstruction, lack of oral intake, gentle IV hydration with close monitoring to avoid fluid overload in the setting of CHF. Other Attestations: Patient seen and examined independently. His condition also discussed with the student. No bowel movement. Some abdominal discomfort. No flatus. No further vomiting since last night. He did not require placement of NG tube. Discussed with him findings on CT scan with bowel obstruction. Reports has history of appendectomy. No prior episodes of bowel obstruction. Discussed with him we will currently continue bowel rest. Repeat suppository, although this was not effective. Giving enema as well. Continue conservative management. Given he remains n.p.o. recently also with diuresis, will give him 250 mL bag of LR hydration at slow rate. Continue to hold diuretics. Continue antiemetics. On presentation had acute diastolic congestive heart failure. Became compensated with treatment. PE GEN: Awake, alert, not in distress. HEENT: Not particularly moist mucous membranes. Neck: No JVD Card: RRR, no murmur Pulmonary: CTAB Abdo: Bowel sounds are present. Mildly distended. Mildly tender to palpation. Soft. Ext: No edema Skin: No rash Coding Level of Care Code Acute Pediatric Lpn for [facility] Fwd Diagnoses Hypoxia R09.02 Pleural effusion, bilateral J90 Congestive heart failure I50.9 Acute kidney injury N17.9 Hyponatremia E87.1 Hypertension I10 Diabetes mellitus E11.9
[2021-03-24 12:00] LABS: Glucose Point of Care 93 mg/dL (70-110)
[2021-03-24 17:32] LABS: Glucose Point of Care 90 mg/dL (70-110)
[2021-03-24] MEDS: doxazosin 1 mg Tablet 2 MG PO (22:14)
[2021-03-24 22:20] LABS: Glucose Point of Care 90 mg/dL (70-110)
[2021-03-25] VITALS (10 sets, daily range): BP systolic 136–159; BP diastolic 67–98; PULSE 74–95; RESP 17–18; TEMP 36.4–36.8; O2SAT 94–98
[2021-03-25 04:53] LABS: Basophils # 0.1 10^3/uL (0.0-0.1); Basophils % 0.5 %; Eosinophils # 0.1 10^3/uL (0.0-0.8); Eosinophils % 0.9 %; Hemoglobin 13.3 g/dL (11.7-16.6); Lymphocytes # 1.7 10^3/uL (0.8-4.8); Lymphocytes % 15.7 %; Mean Corpuscular HGB Conc 30.9 g/dL (30.0-36.0); Mean Corpuscular Hemoglobin 28.3 pg (28.0-34.0); Mean Corpuscular Volume 91.5 fl (80-94); Mean Platelet Volume 9.4 fL (7.4-10.4); Monocytes # 0.9 10^3/uL (0.2-0.9); Monocytes % 8.2 %; Neutrophils # 7.79 10^3/uL (1.8-7.7); Neutrophils % 74.3 %; Nucleated Red Blood Cells % 0 %; Platelet Count 197 10^3/cmm (130-400); Red Cell Distribution Width 14.6 % (12.1-15.1); White Blood Count 10.5 10^3/uL (4.0-10.0)
[2021-03-25 05:10] LABS: Anion Gap 14.4 (5-19); Blood Urea Nitrogen 35 mg/dL (8-23); Calcium 8.2 mg/dL (8.5-10.5); Carbon Dioxide 31 mmol/L (22-29); Chloride 94 mmol/L (98-107); Glucose 82 mg/dL (65-115); Osmolality Calculated 289 mOsm/kg (285-295); Potassium 3.4 mmol/L (3.5-5.1); Sodium 136 mmol/L (136-145)
[2021-03-25 06:25] LABS: Glucose Point of Care 84 mg/dL (70-110)
[2021-03-25] MEDS: ipratropium-albuterol 3 mL Neb INHALATION (07:20)
[2021-03-25] MEDS: metoprolol tartrate 50 mg Tablet PO (07:56)
[2021-03-25] MEDS: amlodipine 10 mg Tablet PO (07:56)
[2021-03-25] MEDS: famotidine 20 mg Tablet PO (07:57)
[2021-03-25] MEDS: hyDRALAzine 25 mg Tablet PO ×2 (07:57→14:18)
[2021-03-25] MEDS: ferrous gluconate 324 mg Tablet PO (07:57)
--- NOTE | 2021-03-25 10:33 | PM.PN ---
Documented by User: Ana Main RICH STDNT 03/25/21 10:59 Subjective Subjective: Interval history: Is doing okay this morning, on room air. Reports minimal nausea. No vomiting. He is passing some flatus. He has not had a bowel movement. Hungry, requests a liquid diet. Medications: Reviewed: Yes Vitals/I&O/Wt Last Vital Signs Temp 98.0 F 03/25/21 07:58 Pulse 95 03/25/21 07:58 Resp 18 03/25/21 07:58 BP 138/72 03/25/21 07:58 Pulse Ox 94 03/25/21 07:58 03/24/21 03/25/21 03/25/21 22:59 06:59 14:59 Intake Total 120 / 120 250 / 370 Output Total 450 / 450 400 / 850 200 / 200 Balance -330 / -330 -150 / -480 -200 / -200 Weight last 48 hrs Weight 93.123 kg Weight 93.349 kg Physical Exam Narrative: EXAM NARRATIVE: General: Male in no acute distress. HEENT: Pupils reactive, oropharynx clear. Neck supple no JVD or lymphadenopathy. Chest: Clear to auscultation bilaterally. No wheezing rales or rhonchi. Cardio: Regular rate and rhythm. No murmurs, rubs, gallops. Abdomen: Distended, mild RLQ tenderness. No organomegaly, bowel sounds present. Neuro: No focal deficits, no facial deformity, AO x3, strength 5/5 in all limbs EXT: No cyanosis, clubbing, or edema. Brito noted. Urinary Catheter Management^: Brito: Cath Placed During This Visit: yes Reason for Continuing Indwelling Catheter: Acute Urinary Retention or Obstruction Urinary Catheter Date of Insertion: 03/21/21 Urinary Catheter Time of Insertion: 23:27 Data : 03/25/21 04:16 03/25/21 04:16 Micro: Microbiology 03/23/21 17:15 Urine Culture - Preliminary Urine,Clean Catch 03/23/21 09:57 Gram Stain - Final Pleural Fluid Body Fluid Culture - Preliminary Other data: Pleural fluid negative to date. Blood culture negative to date. Urine culture negative to date. A&P Assessment and plan (1) Hypoxia: Resolved. Patient on room air. Most likely secondary to congestive heart failure. Has history orthopnea and PND. Urine Legionella negative. Urine bacterial antigen negative. MRSA PCR negative. Blood cultures negative to date.. Peripheral edema resolved. Echo ejection fraction 55.5%. Normal chamber sizes. Aortic valve appears thickened. History of COPD: DuoNebs every 6 hour. Status: Acute (2) Pleural effusion, bilateral: Improved. Patient on room air. Right >left. Right thoracentesis performed Monday. Patient felt better afterwards. Pleural fluid analysis suggestive of transudative effusion. LDH 62. Glucose 141. WBC 182. Cultures negative to date. Left pleural effusion improved with diuresis no thoracentesis was needed. Less likely pneumonia. We will continue to monitor for fever, worsening leukocytosis or oxygen requirement before starting antibiotics. Status: Acute (3) Congestive heart failure: Status: Acute (4) Acute kidney injury: Creatinine 2.5. Medical reconciliation done for nephrotoxic drugs. Status: Acute (5) Hyponatremia: Resolved. Status: Acute (6) Hypertension: Goal blood pressure less than 140/90 mmHg. Continue with home antihypertensives including hydralazine, amlodipine, metoprolol. Hold off on lisinopril given STEVEN. Status: Acute (7) Diabetes mellitus: Hgb A1c 5.9 Insulin sliding scale at low-dose protocol. Status: Acute Additional A&P Information Small bowel obstruction: Patient has abdominal distention and mild RLQ tenderness. Passing some flatus. Has not had a bowel movement. No bowel movement after 2 suppositories given. Refused enema yesterday. Will attempt to give enema today. Patient would like Brito removed for ambulation. Discussed with him reason to keep Brito in at this time, will change to leg catheter bag for easier ambulation. Patient states he is hungry. Will advance diet to liquids. Monitor for vomiting. CT demonstrated high grade small bowel obstruction. heparin for DVT prophylaxis. Famotidine for PUD prophylaxis. Full code Coding Level of Care Code Acute All Source Intelligence Technician for [facility] Diagnoses Hypoxia R09.02 Pleural effusion, bilateral J90 Congestive heart failure I50.9 Acute kidney injury N17.9 Hyponatremia E87.1 Hypertension I10 Diabetes mellitus E11.9 Documented by User: Garry Espitia MD 03/25/21 13:06 Physical Exam Urinary Catheter Management^: Brito: Cath Placed During This Visit: no Data : 03/25/21 04:16 03/25/21 04:16 Attestations Medical Necessity Statement*: Continue admission for cyst management of small bowel obstruction with no p.o. intake. Other Attestations: Patient seen and examined independently. She is still not had a bowel movement. Declined enema earlier. Reports perhaps passing small amounts of flatus. Abdomen distended. Denies significant eructation. Would like to trial some clear liquids and ambulate today. Requested with nursing staff to set him up with a leg bag for the catheter. Maintain catheter in place for now due to SBO, abdominal distention. He will consider let us know about an enema. PE GEN: Awake, alert, conversant, frail appearing. HEENT: Pupils equal, MMM Neck: No JVD Card: RRR, no murmur Pulm: CTAB Abdo: Distended, bowel sounds present, soft Ext: No peripheral edema Skin: No rash Coding Level of Care Code Acute All Source Intelligence Technician for [facility]g Fwd Diagnoses Hypoxia R09.02 Pleural effusion, bilateral J90 Congestive heart failure I50.9 Acute kidney injury N17.9 Hyponatremia E87.1 Hypertension I10 Diabetes mellitus E11.9
[2021-03-25 11:35] LABS: Glucose Point of Care 95 mg/dL (70-110)
--- NOTE | 2021-03-25 16:32 | PC.OT ---
OT ORDERS RECEIVED; PATIENT IS SCHEDULED FOR D/C TODAY. NO EVAL AT THIS TIME.
--- NOTE | 2021-03-26 12:24 | PC.SOCIAL ---
follow up call made, spoke with patient. patient hasn't yet received his medications in the mail at this time. reviewed new medications with patient. stressed to patient that he is only to take lasix if he needs it for edema. patient wasn't aware of medications that needed to be held until follow up with pcp, marketing writer discussed those in depth with patient. patient isn't following full liquid diet at this time, per patient i didn't know i needed to went over full liquid diet and foods he could eat and drink. stressed with patient that he needed to take his discharge instructions with him to see his pcp due to there being several things that needed to be follow up on with patient after discharge from his hospital stay. patient has a follow up appointment with karen gonzalez, he reports that isn't his pcp. maria alejandra miguel is his pcp. marketing writer called and left a message with maria alejandra and will attempt to schedule a follow up with her. i discussed with patient that he needs to be keeping a log of b/p, which he hasn't been but states he does take his blood pressure and feels his machine keeps them logged. went over the importance of not taking NSAIDs due to kidney injury and also the stopped medications due to kidneys and not to restart unless his pcp instructs him to. will follow up with patient regarding transportation to his pcp appointment. he is unsure if he has a ride or if he can drive. i will discuss with his pcp possibly ordering HH for patient to help with medication set up.
--- NOTE | 2021-03-26 19:02 | P.DS_ITS ---
Discharge Providers Date of Admission: 03/21/21 17:45 Date of Discharge: March 25, 2021 Attending Provider at Admission: Juno Durham MD Attending Provider at Discharge: Garry Espitia Primary Care Provider: Cristine Raza Diagnoses at Discharge Discharge Diagnosis (1) Hypoxia: Status: Resolved (2) Pleural effusion, bilateral: Status: Resolved (3) Congestive heart failure: (4) Acute kidney injury: Status: Acute (5) Hyponatremia: Status: Resolved (6) Hypertension: (7) Diabetes mellitus: Status: Acute Reason for Visit Reason for Visit: SOB Hospital Course Hospital Course Pleasant 75 year old gentleman presented with 2-3 months worsening dyspnea particularly worse over the preceding week, with significant dyspnea on exertion, orthopnea, with lower extremity edema, previously prescribed transiently oxygen for emphysema. Admission noted with acute congestive heart failure, with fluid overload as well as bilateral pleural effusions, larger on initial imaging, right greater than left, noted possible mild exacerbation of COPD. Troponin with mild elevation 34-30.23-33.33. EKG initially with questionable atrial fibrillation no A. fib on second EKG, but both difficult to interpret due to underlying tremor. Also noted acute kidney injury, creatinine 2.1 although without recent renal function since 2019 at which point creatinine was 1.2. His lisinopril was held. He required up to 4 L of oxygen by nasal cannula support initially. He was treated with IV diuresis with Lasix, additionally underwent thoracentesis of right pleural effusion on 03/23. He diuresed well, with resolution of lower extremity edema and most symptoms of dyspnea. As well as significant improvement in left-sided pleural effusion to the point that there was not enough fluid to attempt thoracentesis on the left side. Fluid from the right side was found transudate of on analysis. Echoc ardiogram was obtained, although difficult study with possibly normal LV size and EF. No pericardial effusion. Aortic valve appears thickened. Initially consideration was also given to pneumonia, however, he remained afebrile, without leukocytosis, without cough or other signs of pulmonary infection. CMP exacerbation if present on admission resolved. Acute kidney injury persisted, with creatinine transiently increasing to 2.7, with mild improvement 2.5 at discharge. He will need follow-up with regards to acute kidney injury or possibly progression of chronic kidney disease. While CHF symptoms were improving, hospital stay was complicated by episodes of nausea, vomiting, abdominal discomfort, poor oral intake with finding of small bowel obstruction on CT abdomen pelvis with transition point in right mid abdomen without signs of ischemic changes. CT also incidentally showed cholelithiasis. Small bilateral pleural effusions. Moderate to severe abdominal atherosclerosis with calcification extending into the mesenteric arteries. Sigmoid diverticulosis without diverticulitis. He was kept on bowel rest. Due to lack of oral intake received small amount of IV hydration cautiously so as not to worsen congestive heart failure. Brito catheter was maintained in place. Bowel regimen was added. He received suppositories, declined enema. Subsequently reported a bowel movement on 03/25. He declined to stay in the hospital for any additional assessment or treatment and requested to be discharged home the same evening. Please follow-up in office to further reassess volume status as well as renal function and for complete resolution of bowel obstruction. On discharge she is asked to hold Metformin as well as lisinopril-HCTZ until his renal function can be reassessed and found stable. Please consider referral for additional assessment by stress testing. Consider referral for Holter monitoring to closer assess regarding possible atrial fibrillation, although his tremor certainly makes interpretation difficult. Please follow-up with him also with regards to the tremor. Please follow-up regarding aortic atherosclerosis extending into the mesenteric artery. Continue to optimize risk factors of coronary artery disease. Follow-up regarding incidentally noted cholelithiasis. Physical Exam Narrative: EXAM NARRATIVE: Please see physical exam from the progress note during the same day. Urinary Catheter Management^: Brito: Cath Placed During This Visit: yes Reason for Continuing Indwelling Catheter: Acute Urinary Retention or Obstruction Urinary Catheter Date of Insertion: 03/21/21 Urinary Catheter Time of Insertion: 23:27 Discharge Data Data Completed and Pending: Completed Studies During Hospitalization Category Date Time Status CT chest wo con 7 1250 Urgent Cat Scan 03/21/21 16:[address] kidney stone 7 4176 Routine Cat Scan 03/23/21 15:30 Completed XR chest 1V deborah ble [id number] Stat Exams 03/21/21 14:47 Completed XR chest 1V deborah ble [id number] Stat Exams 03/23/21 09:57 Completed CV. echo complete * [id number] Routine Ultrasound 03/22/21 17:52 Completed US thoracentesis [id number] Routine Ultrasound 03/23/21 10:00 Completed Pending at discharge Category Date Time Status Anaerobic Culture Routine Lab 03/22/21 09:57 Results Body Fluid Cultur e & GS Routine Lab 03/22/21 09:57 Results Cytology [PTH] Ro utine Pth 03/22/21 04:59 Received Vitals: Last Vital Signs Temp 98.0 F 03/25/21 17:18 Pulse 74 03/25/21 17:18 Resp 18 03/25/21 17:18 BP 136/67 03/25/21 17:18 Pulse Ox 95 03/25/21 17:18 Discharge Plan Discharge Patient Disposition: Home Condition: Stable Prescriptions: New Lasix 40 mg tablet 40 mg PO QAM PRN (Reason: edema) Qty: 30 RF: 0 Lipitor 40 mg tablet 40 mg PO QPM Qty: 30 RF: 0 Continued hydralazine 25 mg Tablet 25 mg PO TID RF: 0 amlodipine 10 mg Tablet 10 mg PO DAILY RF: 0 metoprolol tartrate 50 mg Tablet 50 mg PO BID RF: 0 aspirin 81 mg Tablet,Chewable 81 mg PO DAILY RF: 0 doxazosin 2 mg tablet 2 mg PO BEDTIME RF: 0 Held metformin 500 mg Tablet 500 mg PO BID RF: 0 Hold Instructions: Resume on 04/01/21. lisinopril-hydrochlorothiazide 20-12.5 mg Tablet 1 tab PO BID RF: 0 Hold Instructions: Resume on 04/01/21. Discharge Orders: Discharge Order (Routine); Ordered 03/25/21 Ordered By: Garry Espitia Referrals: Cristine Raza [Primary Care Provider] - 04/01/21 1:30 pm Discharge Diet: Advance as tolerated, Diabetic, Low Cholesterol and Full LIquid Discharge Activity: Increase activity as tolerated and As per PT/OT instructions Patient Instructions: Heart Failure (GEN), Acute Kidney Injury (GEN), Bowel Obstruction (GEN) Activity Restrictions/Additional Instructions: Please follow-up with your primary provider to reassess for complete resolution of bowel obstruction. Advance diet slowly. In case you experience vomiting, hold any more oral intake, seek medical attention. Similarly if you experience severe abdominal pain, fever, shortness of breath, chest pain, or other concerning symptoms, seek medical attention. Please note that diuretic is prescribed to you on only as needed basis. Please do not take currently, take only if you start having worsening edema. Please continue to measure blood pressures, write down values to bring to your appointment with your primary doctor. Please work on continuing to optimize blood pressure control as it will be important to help prevent further congestive heart failure. Please discuss with your primary doctor referral for additional assessment by cardiology. Please discuss consideration of referral for stress testing. Please discuss with your primary doctor repeating chest x-ray in several weeks to confirm for complete resolution of fluid under your lungs. Please have your primary doctor also follow-up with regards to kidney injury. Your creatinine has improved slightly to 2.5. Please avoid any NSAIDs like ibuprofen, Aleve, or others. Please hold your lisinopril-HCTZ medication. Hold your Metformin. Hold these medications until your primary doctor says it is okay to resume taking them. Please discuss with your primary doctor finding of gallbladder stones incidentally seen on CT scan of your belly. Discharge Attestations Time Spent in Discharge Care*: greater than 30 min Quality Metrics Clinical Quality Measures During this hospital stay, did patient experience: None Coding Level of Care Code Acute g [facility] note Diagnoses Hypoxia R09.02 Pleural effusion, bilateral J90 Congestive heart failure I50.9 Acute kidney injury N17.9 Hyponatremia E87.1 Hypertension I10 Diabetes mellitus E11.9
--- NOTE | 2021-03-29 11:36 | PC.SOCIAL ---
called patient and let him know telegraphic typewriter operator made follow up appointment with Jolynn Breen.
== END 2021-03-25 17:48 | disposition home or self-care (01) | DRG 291 ==
LOC: ER 22:01 → ER IP 23:21 → CSU 03-22 08:35
PROVIDERS: Admitting Provider Student in an Organized Health Care Education/Training Program; Emergency Provider Emergency Medicine; PCP Nurse Practitioner Family; Visit Provider Internal Medicine
DX: I11.0 Hypertensive heart disease with heart failure (principal); I50.31 Acute diastolic (congestive) heart failure; N17.9 Acute kidney failure, unspecified; E87.1 Hypo-osmolality and hyponatremia; K56.609 Unspecified intestinal obstruction, unspecified as to partial versus complete obstruction; R09.02 Hypoxemia; J43.9 Emphysema, unspecified; N40.0 Benign prostatic hyperplasia without lower urinary tract symptoms; I25.10 Atherosclerotic heart disease of native coronary artery without angina pectoris; E11.9 Type 2 diabetes mellitus without complications; I50.9 Heart failure, unspecified
CPT/HCPCS: 32555; 36415; 36416; 51702; 71045; 71250; 74176; 80048; 80053; 80061; 80306; 80500; 81001; 82042; 82150; 82436; 82465; 82570; 82945; 82962; 83036; 83540; 83550; 83615; 83690; 83735; 83880; 83986; 84075; 84100; 84133; 84145; 84157; 84300; 84315; 84443; 84478; 84484; 84560; 85025; 85378; 85610; 85999; 86403; 87040; 87070; 87075; 87086; 87205; 87426; 87449; 87641; 88112; 88305; 89050; 93005; 93306; 94640; 94664; 96372; 97116; 97161; 99285; J1644; J1815; J1940; J2405; J3490

== ENCOUNTER 2021-04-18 15:05 | Inpatient (IN) | payer MEDICARE, SELFPAY ==
[2021-04-18] VITALS (8 sets, daily range): BP systolic 127–165; BP diastolic 64–75; PULSE 66–87; RESP 16–26; TEMP 36.4–36.9; O2SAT 91–96; BMI 25.5; BMI 25.3
--- NOTE | 2021-04-18 15:09 | ECG_ITS ---
[facility] Test Date: 2021-04-18 Pat Name: Ole Maldonado Department: Room: Gender: Male Supervisor Inspection Department: : 1945 Requested By: Leah Murrell Order Number: [id number] Leela MD: Joaquin Womack M.D. Measurements Intervals [place] Rate: 89 P: LA: QRS: 61 QRSD: 72 T: 70 QT: 369 QTc: 451 Interpretive Statements ATRIAL FIBRILLATION ANTEROSEPTAL MYOCARDIAL INFARCTION , OF INDETERMINATE AGE [40+ ms Q WAVE IN V1-V4] Compared to ECG 03/21/2021 17:34:43 Myocardial infarct finding now present Electronically Signed On 04-18-2021 23:17:31 CDT by Joaquin Womack M.D. [email or web address]
--- NOTE | 2021-04-18 15:09 | XRR_ITS ---
PROCEDURE INFORMATION: Exam: XR Chest Exam date and time: 04/18/2021 3:09 PM Age: 75 years old Clinical indication: Pain; Chest pressure; Additional info: Cp TECHNIQUE: Imaging protocol: XR of the chest. Views: 1 view. COMPARISON: CR XR chest 1V portable [id number] 03/23/2021 10:00 AM FINDINGS: Lungs: Slightly increased consolidation in the medial right lung base. Discoid atelectasis in both lung bases. Pleural spaces: Bilateral pleural effusions. Heart/Mediastinum: Unremarkable. No cardiomegaly. Bones/joints: Unremarkable. XR/XR chest 1V portable [id number] IMPRESSION: 1. Increased consolidation in the medial right lung base. When correlating to the CT chest on 03/21/2021, there is loss of air bronchograms in this region. An underlying neoplastic process cannot be entirely excluded. Consider bronchoscopy or tissue sampling. 2. Stable pleural effusions. Radiation Dose CTDIVOL = (mGy): DLP = (mGy-cm)
--- NOTE | 2021-04-18 15:29 | ED_ITS ---
HPI - Chest Pain General: Chief Complaint: Chest Pain Stated Complaint: CP & BACK PAIN SINCE THIS AM Time Seen by Provider: 04/18/21 15:29 History of Present Illness: HPI narrative: Mr. Maldonado is a 75-year-old gentleman with history of hypertension, diabetes, and new diagnosis of heart failure who was previously found to have bilateral pleural effusions status post thoracentesis who presents emergency department due to chest pain. Symptom onset was this morning and he first noticed it in bed. There is no specific provoking factor that he identified his. He had pain in his back associated with mild shortness of breath. The pain radiates now around his right side. Intensity of symptoms is moderate. He describes a deep sharp aching. He denies other infectious symptoms. No other specific exacerbating or relieving factors identified Review of Systems General: Reports: 10 or more systems reviewed and unremarkable except in HPI and below PFSH ED PFSH: Medical History (Updated 04/20/21 @ 19:50 by Gerald Wong MD) Congestive heart failure Diabetes mellitus Hypertension Tobacco abuse Physical Exam Narrative: EXAM NARRATIVE: GENERAL/CONSTITUTIONAL -somewhat ill-appearing. No acute distress. Eyes - PERRL, no conjunctival injection ENMT - Atraumatic external nose and ears. Moist mucous membranes NECK - supple. trachea midline CARDIOVASCULAR - regular rate and rhythm. Peripheral pulses 2+ and equal RESPIRATORY -diminished in right base. Mild increased work of breathing, tachypnea. ABDOMEN/GI - Nontender/Nondistended. MSK - Extremities without obvious deformity or tenderness to palpation SKIN - Warm, Dry NEURO - alert and appropriately oriented. strength and sensation intact. Moves all extremities equally. PSYCH - Appropriate mood and affect Course ED course: - Patient was seen and evaluated by me at bedside - Patient placed on cardiac monitors, IV access obtained - Initial evaluation notable for increased work of breathing, no acute distress. - Labs notable for Leukocytosis, metabolic panel with mild evidence of dehydration, creatinine elevated. - Imaging notable for suspected right-sided pleural effusion, radiology read pending - Upon serial reexamination after treatment the patient was similar - Based on patient history, evaluation, labs, and imaging as interpreted the most likely cause of the patient's condition is shortness of breath and chest pain, likely secondary to pleural effusion - The results of ED evaluation were discussed with the patient including plan for admission due to requirement for level of care not available if discharged to prevent significant worsening/deterioration. -Hospitalist service contacted and agreed to admit the patient - Patient was admitted without further deterioration or significant events. Vital Signs: Vital signs: Vital Signs Temperature 99.1 F 04/20/21 15:12 Pulse Rate 80 04/20/21 15:59 Respiratory Rate 18 04/20/21 15:59 Blood Pressure 160/68 04/20/21 15:12 Pulse Oximetry 95 04/20/21 15:59 MDM - Chest Pain Medical Records: Attestation: I reviewed the patient's medical records. Lab Data: Attestation: I reviewed the patient's lab results. Labs: Lab Results 04/18/21 04/18/21 04/18/21 15:36 15:36 15:36 WBC 15.3 10^3/uL H 10 ^3/uL (4.0-10.0) RBC 4.90 10^6/uL 10^6 /uL (4.1-5.3) Hgb 14.0 g/dL g/dL (11.7-16.6) Hct 42.8 % % (42.0-52.0) MCV 87.3 fl fl (80-94) MCH 28.6 pg pg (28.0-34.0) MCHC 32.7 g/dL g/dL (30.0-36.0) RDW 15.0 % % (12.1-15.1) Plt Count 201 10^3/cmm 10^3 /cmm (130-400) MPV 9.8 fL fL (7.4-10.4) Neut % (Auto) 84.3 % % Lymph % (Auto) 8.6 % % Treasure % (Auto) 6.5 % % Eos % (Auto) 0.1 % % Baso % (Auto) 0.2 % % Neut # (Auto) 12.91 10^3/uL H 1 0^3/uL (1.8-7.7) Lymph # (Auto) 1.3 10^3/uL 10^3/ uL (0.8-4.8) Treasure # (Auto) 1.0 10^3/uL H 10^ 3/uL (0.2-0.9) Eos # (Auto) 0.0 10^3/uL 10^3/ uL (0.0-0.8) Baso # (Auto) 0.0 10^3/uL 10^3/ uL (0.0-0.1) Nucleated RBC % (a uto) 0 % % Nucleated RBCs # 0.0 /100WBC /100W BC Sodium 132 mmol/L L mmol /L (136-145) Potassium 3.7 mmol/L mmol/L (3.5-5.1) Chloride 93 mmol/L L mmol/ L (98-107) Carbon Dioxide 24 mmol/L mmol/L (22-29) Anion Gap 18.7 (5-19) BUN 20 mg/dL mg/dL (8-23) Creatinine 2.0 mg/dL H mg/dL (0.7-1.2) GFR Calculation Not Reportable Glucose 191 mg/dL H mg/dL (65-115) Calculated Osmolal ity 282 mOsm/kg L mOs m/kg (285-295) Calcium 9.2 mg/dL mg/dL (8.5-10.5) Iron TIBC % Saturation Unsat Iron Binding Total Bilirubin 1.0 mg/dL mg/dL (0.15-1.2) AST 14 U/L U/L (0-40) ALT 12 U/L U/L (0-41) Alkaline Phosphata se 73 IU/L IU/L (40-130) Troponin T Baselin e 33 ng/L H ng/L (0-15) Troponin T 120 Min [place] Delta Troponin T Troponin T Hi Sens 6Hr Troponin T Hi Sens 6Hr Delta NT-Pro-B Natriuret Pep Total Protein 6.8 g/dL g/dL (6.6-8.7) Albumin 4.2 g/dL g/dL (3.5-5.2) Globulin 2.6 g/dL g/dL (1.3-4.6) Lipase 35 U/L U/L (13-60) Procalcitonin TSH Urine Color Urine Appearance Urine pH Ur Specific Gravit y Urine Protein Urine Glucose (UA) Urine Ketones Urine Blood Urine Nitrate Urine Bilirubin Urine Urobilinogen Ur Leukocyte Rima ase Urine RBC Urine WBC Ur Squamous Epith Cells Amorphous Sediment Urine Bacteria 04/18/21 04/18/21 04/18/21 15:36 15:36 17:33 WBC RBC Hgb Hct MCV MCH MCHC RDW Plt Count MPV Neut % (Auto) Lymph % (Auto) Treasure % (Auto) Eos % (Auto) Baso % (Auto) Neut # (Auto) Lymph # (Auto) Treasure # (Auto) Eos # (Auto) Baso # (Auto) Nucleated RBC % (a uto) Nucleated RBCs # Sodium Potassium Chloride Carbon Dioxide Anion Gap BUN Creatinine GFR Calculation Glucose Calculated Osmolal ity Calcium Iron 31 ug/dL L ug/dL (59-158) TIBC 300 mcg/dl mcg/dl % Saturation 10.3 % L % (20-50) Unsat Iron Binding 269 ug/dL ug/dL (112-347) Total Bilirubin AST ALT Alkaline Phosphata se Troponin T Baselin e Troponin T 120 Min [place] 30.47 ng/L H ng/L (0-15) Delta Troponin T -2.53 ABS# L ABS# (0-10) Troponin T Hi Sens 6Hr Troponin T Hi Sens 6Hr Delta NT-Pro-B Natriuret Pep 5644 pg/mL H pg/m L (0-450) Total Protein Albumin Globulin Lipase Procalcitonin 0.12 ng/mL ng/mL Cancelled (0-0.5) TSH 2.04 uIU/mL uIU/m L (0.27-4.20) Urine Color Urine Appearance Urine pH Ur Specific Gravit y Urine Protein Urine Glucose (UA) Urine Ketones Urine Blood Urine Nitrate Urine Bilirubin Urine Urobilinogen Ur Leukocyte Rima ase Urine RBC Urine WBC Ur Squamous Epith Cells Amorphous Sediment Urine Bacteria 04/18/21 04/18/21 04/19/21 17:53 21:20 04:51 WBC 9.9 10^3/uL 10^3/ uL (4.0-10.0) RBC 4.14 10^6/uL 10^6 /uL (4.1-5.3) Hgb 11.7 g/dL g/dL (11.7-16.6) Hct 36.3 % L % (42.0-52.0) MCV 87.7 fl fl (80-94) MCH 28.3 pg pg (28.0-34.0) MCHC 32.2 g/dL g/dL (30.0-36.0) RDW 15.2 % H % (12.1-15.1) Plt Count 168 10^3/cmm 10^3 /cmm (130-400) MPV 10.1 fL fL (7.4-10.4) Neut % (Auto) 68.4 % % Lymph % (Auto) 20.6 % % Treasure % (Auto) 10.1 % % Eos % (Auto) 0.2 % % Baso % (Auto) 0.4 % % Neut # (Auto) 6.75 10^3/uL 10^3 /uL (1.8-7.7) Lymph # (Auto) 2.0 10^3/uL 10^3/ uL (0.8-4.8) Treasure # (Auto) 1.0 10^3/uL H 10^ 3/uL (0.2-0.9) Eos # (Auto) 0.0 10^3/uL 10^3/ uL (0.0-0.8) Baso # (Auto) 0.0 10^3/uL 10^3/ uL (0.0-0.1) Nucleated RBC % (a uto) 0 % % Nucleated RBCs # 0.0 /100WBC /100W BC Sodium Potassium Chloride Carbon Dioxide Anion Gap BUN Creatinine GFR Calculation Glucose Calculated Osmolal ity Calcium Iron TIBC % Saturation Unsat Iron Binding Total Bilirubin AST ALT Alkaline Phosphata se Troponin T Baselin e Troponin T 120 Min [place] Delta Troponin T Troponin T Hi Sens 6Hr 38.96 ng/L H ng/L (0-15) Troponin T Hi Sens 6Hr Delta 5.96 ng/L ng/L (0-12) NT-Pro-B Natriuret Pep Total Protein Albumin Globulin Lipase Procalcitonin TSH Urine Color Yellow (Yellow) Urine Appearance Clear (CLEAR) Urine pH 7 (5-7) Ur Specific Gravit y 1.005 (1.005-1.030) Urine Protein 2+ H (Negative) Urine Glucose (UA) Trace H (Normal) Urine Ketones Negative (Negative) Urine Blood Neg (Negative) Urine Nitrate Negative (Negative) Urine Bilirubin Neg (Negative) Urine Urobilinogen Norm mg/dL mg/dL (Negative) Ur Leukocyte Rima ase Negative (Negative) Urine RBC 0-4 /hpf H /hpf (0-2) Urine WBC 0-4 /hpf H /hpf (0-5) Ur Squamous Epith Cells 0-4 /hpf H /hpf (0-5) Amorphous Sediment Not Reportable Urine Bacteria Trace /hpf /hpf (NONE) 04/19/21 04/19/21 04:51 04:51 WBC RBC Hgb Hct MCV MCH MCHC RDW Plt Count MPV Neut % (Auto) Lymph % (Auto) Treasure % (Auto) Eos % (Auto) Baso % (Auto) Neut # (Auto) Lymph # (Auto) Treasure # (Auto) Eos # (Auto) Baso # (Auto) Nucleated RBC % (a uto) Nucleated RBCs # Sodium 134 mmol/L L mmol /L (136-145) Potassium 3.3 mmol/L L mmol /L (3.5-5.1) Chloride 97 mmol/L L mmol/ L (98-107) Carbon Dioxide 27 mmol/L mmol/L (22-29) Anion Gap 13.3 (5-19) BUN 21 mg/dL mg/dL (8-23) Creatinine 2.2 mg/dL H mg/dL (0.7-1.2) GFR Calculation Not Reportable Glucose 83 mg/dL mg/dL (65-115) Calculated Osmolal ity 280 mOsm/kg L mOs m/kg (285-295) Calcium 8.5 mg/dL mg/dL (8.5-10.5) Iron TIBC % Saturation Unsat Iron Binding Total Bilirubin 1.2 mg/dL mg/dL (0.15-1.2) AST 11 U/L U/L (0-40) ALT 9 U/L U/L (0-41) Alkaline Phosphata se 52 IU/L IU/L (40-130) Troponin T Baselin e Troponin T 120 Min [place] Troponin T Troponin T Hi Sens 6Hr Troponin T Hi Sens 6Hr Delta NT-Pro-B Natriuret Pep Total Protein 5.3 g/dL L D g/dL (6.6-8.7) Albumin 3.0 g/dL L g/dL (3.5-5.2) Globulin 2.3 g/dL g/dL (1.3-4.6) Lipase Procalcitonin 0.26 ng/mL ng/mL (0-0.5) TSH Urine Color Urine Appearance Urine pH Ur Specific Gravit y Urine Protein Urine Glucose (UA) Urine Ketones Urine Blood Urine Nitrate Urine Bilirubin Urine Urobilinogen Ur Leukocyte Rima ase Urine RBC Urine WBC Ur Squamous Epith Cells Amorphous Sediment Urine Bacteria EKG Data^: EKG 1: Attestation: I personally reviewed and interpreted this EKG as follows: EKG interpretation date: 04/18/21 EKG interpretation time: 17:56 Interpretation: Twelve-lead EKG shows a regular rhythm at a rate of 81. No FL interval, QRS duration 91, QTc 409. Normal axis. Interpretation atrial fibrillation EKG 2: Attestation: I personally reviewed and interpreted this EKG as follows: EKG interpretation date: 04/18/21 EKG interpretation time: 15:28 Interpretation: Twelve-lead EKG shows a irregular rhythm at a rate of 89 No FL interval, QRS duration 72, QTc 416 Normal axis Interpretation: Atrial fibrillation Discharge Plan Discharge Patient Disposition: Admitted As Inpatient Admit Provider: Juno Durham Coding Level of Care Code ED Photo Mask Cleaner for Kori Nicole
[2021-04-18 15:46] LABS: Basophils % 0.2 %; Eosinophils % 0.1 %; Hematocrit 42.8 % (42.0-52.0); Lymphocytes # 1.3 10^3/uL (0.8-4.8); Lymphocytes % 8.6 %; Mean Corpuscular HGB Conc 32.7 g/dL (30.0-36.0); Mean Corpuscular Hemoglobin 28.6 pg (28.0-34.0); Mean Corpuscular Volume 87.3 fl (80-94); Mean Platelet Volume 9.8 fL (7.4-10.4); Monocytes % 6.5 %; Neutrophils # 12.91 10^3/uL (1.8-7.7); Neutrophils % 84.3 %; Nucleated Red Blood Cells % 0 %; Platelet Count 201 10^3/cmm (130-400); White Blood Count 15.3 10^3/uL (4.0-10.0)
[2021-04-18 16:22] LABS: Alanine Aminotransferase 12 U/L (0-41); Albumin Level 4.2 g/dL (3.5-5.2); Alkaline Phosphatase 73 IU/L (40-130); Anion Gap 18.7 (5-19); Aspartate Amino Transferase 14 U/L (0-40); Blood Urea Nitrogen 20 mg/dL (8-23); Calcium 9.2 mg/dL (8.5-10.5); Carbon Dioxide 24 mmol/L (22-29); Chloride 93 mmol/L (98-107); Globulin 2.6 g/dL (1.3-4.6); Glucose 191 mg/dL (65-115); Lipase 35 U/L (13-60); Osmolality Calculated 282 mOsm/kg (285-295); Potassium 3.7 mmol/L (3.5-5.1); Sodium 132 mmol/L (136-145); Total Protein 6.8 g/dL (6.6-8.7); Troponin(5th) Baseline 33 ng/L (0-15)
[2021-04-18 17:16] LABS: NT Pro B Type Natriuretic Pept 5644 pg/mL (0-450); Procalcitonin 0.12 ng/mL (0-0.5)
[2021-04-18] MEDS: FUROsemide 10 mg/mL SDV 4mL 40 MG IVP (18:09)
[2021-04-18 18:23] LABS: Troponin 5 2HR 30.47 ng/L (0-15)
[2021-04-18 18:28] LABS: Add Urine Microscopic? YES; Bilirubin Urine Neg (Negative); Blood Urine Neg (Negative); Glucose Urine UA Trace (Normal); Ketones Urine Negative (Negative); Leukocyte Esterase Urine Negative (Negative); Nitrate Urine Negative (Negative); Protein Urine 2+ (Negative); Specific Gravity, Urine 1.005 (1.005-1.030); Urine Appearance Clear (CLEAR); Urine Color Yellow (Yellow); Urobilinogen Urine Norm (Negative); pH Urine 7 (5-7)
[2021-04-18 18:29] LABS: Add Urine Culture? No; Bacteria Urine TRACE /hpf; RBC Urine 0-4 /hpf (0-2); Squamous Epithelial Cell Urine 0-4 /hpf (0-5); WBC Urine 0-4 /hpf (0-5)
[2021-04-18 18:30] LABS: Thyroid Stimulating Hormone 2.04 uIU/mL (0.27-4.20)
[2021-04-18 18:31] LABS: Troponin 5 2HR Delta -2.53 ABS# (0-10)
--- NOTE | 2021-04-18 19:50 | PC.PHAR ---
Pharmacokinetic dosing service Date: 04/18/21 Time: 1999 Objective: Patient: Ole Maldonado Floor: 276-2 Age: 75 yo Serum creatinine: 2.0 mg/dL Height: 68.0 Inches Weight (kg): 75.523 Diagnosis: Relevant medical/social history: Cultures and sensitivities: Other labs: Assessment: IBW (kg): 68.40 Dosing wt(kg): 75.523 Estimated Creatinine clearance (ml/min): 29.9 CRCL method: Cockcroft and Gault using ibw(default). Drug selected: Vancomycin Loading dose (mg): 0 Vd (liters): 68.0 (factor used: 0.9 L/kg) Ender (hr-1): 0.029 Half life (hrs): 23.90 Recommended dose: 1250 mg Interval: 24 hrs Infusion time (hrs): 1.5 Predicted peak (mcg/mL): 35.9 Predicted trough (mcg/mL): 18.69 Total body weight is being used for vancomycin dosing. Renal function is stable [ ] /unstable [ ] Recommendations: Give Vancomycin 1250 mg q 24 hrs with an expected Cpeak of 35.9 mcg/ml and an expected Ctrough of 18.69 mcg/ml Renal dosing of other antibiotics (review renal dosing of other medications and list guidelines here): Thank you for the consult, will continue to follow. Signature: [facility]
[2021-04-18] MEDS: ferrous gluconate 324 mg Tablet PO (19:58)
[2021-04-18] MEDS: atorvastatin 40 mg Tablet PO (19:58)
[2021-04-18] MEDS: vancomycin 1,250 MG/250 ML PIGGYBACK 250 MG IV (19:59)
[2021-04-18] MEDS: metoprolol tartrate 50 mg Tablet PO (19:59)
[2021-04-18] MEDS: budesonide 0.5 mg/2 mL Neb INHALATION (21:09)
--- NOTE | 2021-04-18 21:09 | ECG_ITS ---
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 Measurements Intervals [place] Rate: 80 P: UT: QRS: 27 QRSD: 91 T: 52 QT: 373 QTc: 432 Interpretive Statements ATRIAL FIBRILLATION MODERATE ST DEPRESSION [0.05+ mV ST DEPRESSION] Compared to ECG 04/18/2021 15:22:15 ST (T wave) deviation now present Myocardial infarct finding no longer present Electronically Signed On 04-18-2021 23:22:47 CDT by Joaquin Womack M.D. [id number]
[2021-04-18] MEDS: piperacillin-tazobactam 3.375 GM in sodium chloride 0.9% (plus) 50 ML IV (21:40)
[2021-04-18 21:55] LABS: Iron 31 ug/dL (59-158); Percent Saturation 10.3 % (20-50); Total Iron Binding Capacity 300 mcg/dl; Unsaturated Iron Binding 269 ug/dL (112-347)
[2021-04-18 22:33] LABS: Troponin 5 6HR 38.96 ng/L (0-15); Troponin 5 6HR Delta 5.96 ng/L (0-12)
--- NOTE | 2021-04-18 23:56 | PM.HP ---
Providers/Chief Complaint Admitting Physician: Juno Durham MD Primary Care Provider: Cristine Raza Chief Complaint: CP & BACK PAIN SINCE THIS AM History of Present Illness Ole Maldonado is a 75 year old male with PMH HTN, BPH admitted 03/21 to 03/26 with significant dyspnea on exertion, orthopnea, with lower extremity edema. Hospital course significant for acute congestive heart failure, with fluid overload as well as bilateral pleural effusions, larger on initial imaging, right greater than left, noted possible mild exacerbation of COPD. He was treated with IV diuresis with Lasix, additionally underwent thoracentesis of right pleural effusion on 03/23. He diuresed well, with resolution of lower extremity edema and most symptoms of dyspnea. As well as significant improvement in left-sided pleural effusion to the point that there was not enough fluid to attempt thoracentesis on the left side. Fluid from the right side was found transudate of on analysis. hospital stay was complicated by episodes of nausea, vomiting, abdominal discomfort, poor oral intake with finding of small bowel obstruction on CT abdomen pelvis with transition point in right mid abdomen without signs of ischemic changes. Managed conservatively. He declined to stay in the hospital for any additional assessment or treatment and requested to be discharged home the same evening.It was recommended he follow up for stress test and holter testing. Presented to the ER today with chest pain and shortness of breath. Ekg showed A fib with HR 80. Trop mildly elevated, 2 hr delta negative, 6 hr delta at 5. Cxr today with increased right lung base with loss of air bronchograms, suspicious for malignancy. cr today improved over last admission Review of Systems General: Reports: 10 or more systems reviewed and unremarkable except in HPI and below Const: Denies: fever(s), chills or body aches Eyes: Denies: change in vision, blurry vision or photophobia ENMT: Reports: hoarseness; Denies: throat pain, enlarged tonsils, odynophagia or nasal congestion Card: Denies: chest pain, palpitations, irregular heart rhythm, edema, swelling of feet/ankles, lightheadedness, pre-syncope, dyspnea on exertion or orthopnea Resp: Denies: dyspnea, productive cough, non-productive cough, wheezing, stridor, pain on inspiration, change in phlegm color, hemoptysis or chest congestion GI: Denies: abdominal pain, nausea, vomiting, hematemesis, coffee ground emesis, dysphagia, heartburn, diarrhea, constipation, GI cramping, change in stool character, hematochezia or melena : Denies: flank pain, dysuria, urinary frequency, urinary urgency, urinary hesitancy or hematuria Musc: Denies: neck pain, back pain, extremity pain, joint swelling, joint warmth or deformity Neuro: Denies: headache(s), numbness in extremities, weakness in extremities, sensory changes, difficulty walking, frequent falls, dizziness, vertigo, behavioral changes, Slurred speech present or seizure-like activity Psych: Denies: anxiety, depression, suicidal ideation or homicidal ideation Endo: Denies: polyuria, polydipsia, tired all the time, cold intolerance or hot flashes Zach/Lymph: Denies: easy bruising or easy bleeding Medications/Allergies Home Medications Medication Instructions Recorded Confirmed Last Taken Type amlodipine 10 mg PO DAILY 03/21/21 04/18/21 04/18/21 History aspirin 81 mg PO DAILY 03/21/21 04/18/21 04/18/21 History doxazosin 2 mg PO BEDTIME 03/21/21 04/18/21 04/17/21 History hydralazine 25 mg PO TID 03/21/21 04/18/21 04/18/21 History lisinopril-hydrochlorothiazide 1 tab PO BID 03/21/21 04/18/21 04/18/21 History metformin 500 mg PO BID 03/21/21 04/18/21 04/18/21 History metoprolol tartrate 50 mg PO BID 03/21/21 04/18/21 04/18/21 History atorvastatin [Lipitor] 40 mg PO QPM #30 tab 03/25/21 04/18/21 04/17/21 Rx furosemide [Lasix] 40 mg PO QAM PRN #30 tab 03/25/21 04/18/21 Unknown Rx Allergies Allergy/AdvReac Type Severity Reaction Status Date / Time No Known Allergies Allergy Verified 03/21/21 14:33 PFSH Acute PFSH: Medical History (Updated 04/19/21 @ 03:57 by Lisa Barger MD) Congestive heart failure Diabetes mellitus Hypertension Tobacco abuse Vitals/I&O/Wt Last Vital Signs Temp 98.5 F 04/18/21 23:20 Pulse 66 04/18/21 23:20 Resp 20 H 04/18/21 23:20 BP 128/67 04/18/21 23:20 Pulse Ox 91 04/18/21 23:20 04/18/21 04/18/21 04/19/21 14:59 22:59 06:59 Intake Total 250 / 250 Output Total 300 / 300 275 / 575 Balance -50 / -50 -275 / -325 Weight last 48 hrs Weight 75.523 kg Weight 76.204 kg Physical Exam Narrative: EXAM NARRATIVE: General: No acute distress, AO x3 HEENT: PERRLA, pupils bilaterally equal and reactive, pallors not present Chest: Normal vesicular breath sounds, no added sounds, equal good air entry bilaterally CVS: S1-S2 regular, no murmurs, no tachycardia, no gallops, no rubs Abdomen: Soft, nontender, no organomegaly, bowel sounds present Neuro: No focal deficits, no facial deformity, AO x3, power 5/5 in all limbs Data : 04/18/21 15:36 04/18/21 15:36 Micro: Microbiology 04/18/21 21:25 Blood Culture - Preliminary Blood SPECIMEN COLLECTED 04/18/21 21:20 Blood Culture - Preliminary Blood SPECIMEN COLLECTED A&P Assessment and plan (1) Pleural effusion: Status: Acute (2) Right pulmonary infiltrate on CXR: Status: Acute (3) Congestive heart failure: Status: Acute (4) Chest pain: Status: Acute Additional A&P Information Admit to med/surg Presenting today with chest pain and pleural effusion EKg without acute ST-T wave changes, trop series without significant delta Last admission w/up for pleural effusion revaled transudative effusion No malignancy on pathology, acute inflammation noted X ray today with worsening consolidation noted however loss of air bronchograms, suspicion for malignancy, CT chest ordered Lasix 40mg iv q12h check blood cx, MRSA PCR, bacterial ag, legionella Ag empiric abx treatment with zosyn and vancomycin while undergoing evaluation Attestations Medical Necessity Statement*: observation admission, anticipate less than 48 hr admission Coding Level of Care Code Acute Sheriff Officer for Chg Fwd Diagnoses Pleural effusion J90 Right pulmonary infiltrate on CXR R91.8 Congestive heart failure I50.9 Chest pain R07.9
[2021-04-19] VITALS (11 sets, daily range): BP systolic 123–155; BP diastolic 53–72; PULSE 53–77; RESP 15–18; TEMP 36.4–37.4; O2SAT 91–95
[2021-04-19] MEDS: piperacillin-tazobactam 3.375 GM in sodium chloride 0.9% (plus) 50 ML IV ×3 (05:23→21:27)
[2021-04-19] MEDS: FUROsemide 10 mg/mL SDV 4mL 40 MG IVP ×2 (05:23→18:07)
[2021-04-19 05:49] LABS: Basophils % 0.4 %; Eosinophils % 0.2 %; Hematocrit 36.3 % (42.0-52.0); Hemoglobin 11.7 g/dL (11.7-16.6); Lymphocytes % 20.6 %; Mean Corpuscular HGB Conc 32.2 g/dL (30.0-36.0); Mean Corpuscular Hemoglobin 28.3 pg (28.0-34.0); Mean Corpuscular Volume 87.7 fl (80-94); Mean Platelet Volume 10.1 fL (7.4-10.4); Monocytes % 10.1 %; Neutrophils # 6.75 10^3/uL (1.8-7.7); Neutrophils % 68.4 %; Nucleated Red Blood Cells % 0 %; Platelet Count 168 10^3/cmm (130-400); Red Blood Count 4.14 10^6/uL (4.1-5.3); Red Cell Distribution Width 15.2 % (12.1-15.1); White Blood Count 9.9 10^3/uL (4.0-10.0)
[2021-04-19 06:06] LABS: Alanine Aminotransferase 9 U/L (0-41); Alkaline Phosphatase 52 IU/L (40-130); Anion Gap 13.3 (5-19); Aspartate Amino Transferase 11 U/L (0-40); Blood Urea Nitrogen 21 mg/dL (8-23); Calcium 8.5 mg/dL (8.5-10.5); Carbon Dioxide 27 mmol/L (22-29); Chloride 97 mmol/L (98-107); Globulin 2.3 g/dL (1.3-4.6); Glucose 83 mg/dL (65-115); Osmolality Calculated 280 mOsm/kg (285-295); Potassium 3.3 mmol/L (3.5-5.1); Sodium 134 mmol/L (136-145); Total Bilirubin 1.2 mg/dL (0.15-1.2); Total Protein 5.3 g/dL (6.6-8.7)
--- NOTE | 2021-04-19 07:00 | CT_ITS ---
WS: [id number] CT chest wo con [id number] REASON FOR EXAM: suspicious mass on CXR RLL IV CONTRAST ADMINISTERED: None. TOTAL EXAM DLP: 916.[address] scans at [facility] use at least one of these dose optimization techniques: automat ed exposure control; mA and/or kV adjustment per patient size (includes targeted exams where dose is matched to clinical indication); or iterative reconstruction. FINDINGS: The CT of the chest has not changed significantly compared to 03/21/2021. There is now a small air-flu id level in the apex of the right hemithorax which may be secondary to previous thoracentesis. There are bilateral pleural effusions, moderate on the left and large on the right. There is significant atelectasis in the right lower lobe. Right hilar region appears enlarged, howeve r without intravenous contrast to opacify the pulmonary artery this is not well evaluated. There may be some narrowing of or mucus within the left lower lobe bronchus. No new abnormality identified. CT/CT chest wo con [id number] IMPRESSION: Continued atelectasis of the right lower lobe and prominence of the right hilum . With these findings and no significant interval change the possibility of bronc hial obstruction should be considered. Without intravenous contrast further jennifer racterization cannot be made. Bronchoscopy possibly indicated as clinically warranted.
[2021-04-19] MEDS: budesonide 0.5 mg/2 mL Neb INHALATION ×3 (09:00→20:13)
[2021-04-19] MEDS: ipratropium-albuterol 3 mL Neb INHALATION ×4 (09:00→20:13)
[2021-04-19] MEDS: aspirin 81 mg Chew Tablet PO (09:20)
[2021-04-19] MEDS: ferrous gluconate 324 mg Tablet PO ×2 (09:20→17:07)
[2021-04-19] MEDS: metoprolol tartrate 50 mg Tablet PO ×2 (09:20→17:07)
--- NOTE | 2021-04-19 10:12 | PC.CHAP ---
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 [] Patient/Family/Request visit [] Outpatient visit [] Follow-up visit [] Physician referral [] Code/Alert [x] Routine visit [] Staff referral [] Actively dying [] Patient sleeping [] Family support [] [] Out of room [] Palliative care [] [x] Receiving care in room [] Pre-surgical visit [] Trauma [] Long length of stay [] ICU visit [] Other: Relational/Emotional Strength [] Patient feels connected with others/family/visitors/staff [] Distress [] Loneliness/isolation [] Abandonment Spirituality of Patient [] Person of E[place] [] Attends Latter-Day of their [place] [] Believes in Prayer [] Reads Bible or Congregation materials [] There are Spiritual issues to be addressed Command And Control Specialist Interventions [] Prayer [] Active listening [] Non-anxious presence [] Spiritual/emotional support [] Crisis/trauma care [] Spiritual counseling [] Bereavement support [] Provided bereavement packet [] Provided Bible/devotional materials [] Provided toy/stuffed animal, coloring book to patient or family member [] Provided Communion [] Anointing/[place] [] Salvation [] Completed spiritual assessment [] Other: Impact on Illness or Injury [] Angry [] Fearful [] Anxious [] Often cries [] Exhaustion [] Unable to work [] Unable to attend samaritan [] Unable to walk/stand [] Unable to read [] Unable to drive [] Unable to eat/drink [] Unable to sleep [] Unable to be with family [] Patient intubated [] Other: Summary Time spent with patient
--- NOTE | 2021-04-19 13:01 | P.PN_ITS ---
Subjective Subjective: Interval history: Seen and examined this morning. Patient feels a lot better compared to admission. He states he takes Lasix at home from time to time but not every day. He feels well is on room air at this time. Vitals/I&O/Wt Last Vital Signs Temp 98.3 F 04/19/21 11:32 Pulse 53 L 04/19/21 11:32 Resp 15 04/19/21 11:32 BP 123/53 04/19/21 11:32 Pulse Ox 94 04/19/21 11:32 04/18/21 04/19/21 04/19/21 22:59 06:59 14:59 Intake Total 250 / 250 50 / 300 299.583 / 299.583 Output Total 300 / 300 450 / 750 585 / 585 Balance -50 / -50 -400 / -450 -285.417 / -285.417 Weight last 48 hrs Weight 75.523 kg Weight 76.204 kg Physical Exam Narrative: EXAM NARRATIVE: General: Alert oriented x3, patient seen and examined this morning. Patient resting comfortably in bed. Appearing happy. HEENT: Normocephalic, atraumatic, EOMI, breathing room air. Cardio: Regular rate rhythm, normal S1-S2, no murmurs rubs gallops, Respiratory: Good bilateral air entry, no wheezes no rhonchi appreciated. Very mild crackles at right base. Left side is clear. GI: Abdomen soft, nontender, nondistended, bowel sounds + Behavior: Appropriate and cooperative Extremities: no edema, no cyanosis Data : 04/19/21 04:51 04/19/21 04:51 Micro: Microbiology 04/18/21 17:53 Bacterial Antigens - Final Urine Kidney 04/18/21 17:53 Legionella Urinary Antigen - Final Urine,Voided 04/18/21 21:25 Blood Culture - Preliminary Blood SPECIMEN COLLECTED 04/18/21 21:20 Blood Culture - Preliminary Blood SPECIMEN COLLECTED A&P Assessment and plan (1) Pleural effusion: Status: Acute (2) Congestive heart failure: Status: Acute (3) Diabetes mellitus: Status: Acute Additional A&P Information CHF exacerbation DM Pleural Effusion Admit to med/surg Presenting today with chest pain and pleural effusion EKg without acute ST-T wave changes, trop series without significant delta Last admission w/up for pleural effusion revaled transudative effusion No malignancy on pathology, acute inflammation noted X ray today with worsening consolidation noted however loss of air bronchograms, suspicion for malignancy, CT Chest ordered Previous admission: Thoracentesis last admission revealed transudative fluid. CT chest: Continued atelectasis of the right lower lobe and prominence of the right hilum. With these findings and no significant interval change the possibility of bronchial obstruction should be considered. Without intravenous contrast further characterization cannot be made. Bronchoscopy possibly indicated as clinically warranted. Will keep vanc zosyn for anotehr day. Check procalcitonin. Will most likely dc on augmentin. Clinically it does not seem like pneumonia. Discussed case with Dr. Starkey. Dr Starkey reviewed image. It seems there is fluid and not consolidation. Will order outpatient follow up with him for potential tap vs. bronch vs PET CT. For now we will diurese patient. Plan for discharge tomorrow with oral lasix adjustment. Repeat cardiac echo. Metoprolol Tartrate 50 mg BID Atorvastatin 40 mg daily Lasix 40mg iv q12h Check blood cx, MRSA PCR, bacterial ag, legionella Ag Empiric abx treatment with zosyn and vancomycin while undergoing evaluation Attestations Medical Necessity Statement*: Plan for DC in AM with outpatient follow up Time Spent in Patient Care: Greater than 35 minutes Coding Level of Care Code Acute Plastic Technician for K[facility] Diagnoses Pleural effusion J90 Congestive heart failure I50.9 Diabetes mellitus E11.9
[2021-04-19] MEDS: atorvastatin 40 mg Tablet PO (17:07)
[2021-04-19 18:29] LABS: Procalcitonin 0.26 ng/mL (0-0.5)
[2021-04-19] MEDS: vancomycin 1,250 MG/250 ML PIGGYBACK 250 MG IV (19:36)
[2021-04-20] VITALS (12 sets, daily range): BP systolic 121–166; BP diastolic 68–81; PULSE 64–92; RESP 16–20; TEMP 36.8–37.3; O2SAT 2–97
[2021-04-20] MEDS: ipratropium-albuterol 3 mL Neb INHALATION ×4 (02:35→19:50)
[2021-04-20] MEDS: piperacillin-tazobactam 3.375 GM in sodium chloride 0.9% (plus) 50 ML IV ×3 (05:14→23:17)
[2021-04-20] MEDS: FUROsemide 10 mg/mL SDV 4mL 40 MG IVP ×2 (05:14→18:17)
[2021-04-20 06:05] LABS: Basophils # 0.1 10^3/uL (0.0-0.1); Basophils % 0.7 %; Eosinophils # 0.1 10^3/uL (0.0-0.8); Hematocrit 37.1 % (42.0-52.0); Hemoglobin 12.3 g/dL (11.7-16.6); Lymphocytes # 2.2 10^3/uL (0.8-4.8); Lymphocytes % 22.4 %; Mean Corpuscular HGB Conc 33.2 g/dL (30.0-36.0); Mean Corpuscular Hemoglobin 29.3 pg (28.0-34.0); Mean Corpuscular Volume 88.3 fl (80-94); Mean Platelet Volume 9.8 fL (7.4-10.4); Monocytes % 10.4 %; Neutrophils # 6.48 10^3/uL (1.8-7.7); Neutrophils % 65.1 %; Nucleated Red Blood Cells % 0 %; Platelet Count 180 10^3/cmm (130-400); Red Cell Distribution Width 15.1 % (12.1-15.1)
[2021-04-20 06:26] LABS: Blood Urea Nitrogen 26 mg/dL (8-23); Calcium 8.4 mg/dL (8.5-10.5); Carbon Dioxide 29 mmol/L (22-29); Chloride 96 mmol/L (98-107); Glucose 94 mg/dL (65-115); Magnesium 1.5 mg/dL (1.7-2.3); Osmolality Calculated 287 mOsm/kg (285-295); Sodium 136 mmol/L (136-145)
--- NOTE | 2021-04-20 08:11 | XR_ITS ---
WS: [id number] PORTABLE CHEST HISTORY: follow up pleural effusion/consolidation right lobe COMPARISON: 04/18/[address] 04/19/2021. Moderate size layering RIGHT pleural effusion. No improvement since the prior study. LEFT lung is mil dly hyperexpanded. Small RIGHT apical pneumothorax. No pneumonia on the RIGHT LEFT. Areas of atelectasis throughout the RIGHT lung from the effusion. Cardiac size: Normal. Mediastinum/Aorta: Mild atherosclerosis aorta. No osseous abnormality seen. XR/XR chest 1V portable [id number] IMPRESSION: 1. Moderate-sized layering RIGHT pleural effusion. RIGHT hydropneumothorax is evident. This was also confirmed on the CT of 04/19/2021. 2. No midline shift or tension pneumothorax.
[2021-04-20] MEDS: aspirin 81 mg Chew Tablet PO (08:28)
[2021-04-20] MEDS: metoprolol tartrate 50 mg Tablet PO ×2 (08:28→17:53)
[2021-04-20] MEDS: ferrous gluconate 324 mg Tablet PO ×2 (08:28→17:53)
[2021-04-20] MEDS: budesonide 0.5 mg/2 mL Neb INHALATION ×2 (08:55→19:50)
--- NOTE | 2021-04-20 11:15 | PC.CHAP ---
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 road oiler visit [] Patient/Family/Request visit [] Outpatient visit [] Follow-up visit [] Physician referral [] Code/Alert [x] Routine visit [] Staff referral [] Actively dying [] Patient sleeping [] Family support [] [] Out of room [] Palliative care [] [] Receiving care in room [] Pre-surgical visit [] Trauma [] Long length of stay [] ICU visit [] Other: Relational/Emotional Strength [] Patient feels connected with others/family/visitors/staff [] Distress [] Loneliness/isolation [] Abandonment Spirituality of Patient [x] Person of Eulalia [] Attends Oriental Orthodox of their [place] [x] Believes in Prayer [] Reads Bible or Restorationism materials [] There are Spiritual issues to be addressed Prototype Model Maker Interventions [x] Prayer [] Active listening [] Non-anxious presence [] Spiritual/emotional support [] Crisis/trauma care [] Spiritual counseling [] Bereavement support [] Provided bereavement packet [] Provided Bible/devotional materials [] Provided toy/stuffed animal, coloring book to patient or family member [] Provided Communion [] Anointing/[place] [] Salvation [] Completed spiritual assessment [] Other: Impact on Illness or Injury [] Angry [] Fearful [] Anxious [] Often cries [] Exhaustion [] Unable to work [] Unable to attend anglican [] Unable to walk/stand [] Unable to read [] Unable to drive [] Unable to eat/drink [] Unable to sleep [] Unable to be with family [] Patient intubated [] Other: Summary A happy man, seemed to be positive about his stay here and looked good. Time spent with patient 2 minutes.
--- NOTE | 2021-04-20 13:07 | PM.PN ---
Subjective Subjective: Interval history: Seen and examined this morning. No acute events overnight. X-ray from this morning shows worsening. There is moderate size layering right pleural effusion, right hydropneumothorax is evident. No tension pneumothorax or midline shift. Patient did get IV Lasix yesterday but did not improve the fluid effusion. Initially the plan was to discharge him but after reviewing the x-ray I have talked with the patient and he is willing to stay for further work-up. Vitals/I&O/Wt Last Vital Signs Temp 98.3 F 04/20/21 11:01 Pulse 64 04/20/21 11:01 Resp 17 04/20/21 11:01 BP 134/69 04/20/21 11:01 Pulse Ox 97 04/20/21 11:01 04/19/21 04/20/21 04/20/21 22:59 06:59 14:59 Intake Total 540 / 839.583 170 / 1009.583 410 / 410 Output Total 1230 / 1815 1025 / 2840 300 / 300 Balance -690 / -975.417 -855 / -1830.417 110 / 110 Weight last 48 hrs Weight 75.523 kg Weight 76.204 kg Physical Exam Narrative: EXAM NARRATIVE: General: Alert oriented x3, patient seen and examined this morning. Patient resting comfortably in bed. HEENT: Normocephalic, atraumatic, EOMI, breathing room air. Cardio: Regular rate rhythm, normal S1-S2, no murmurs rubs gallops, Respiratory: Good bilateral air entry, no wheezes no rhonchi appreciated. Crackles at right base appreciated. Left side is clear. GI: Abdomen soft, nontender, nondistended, bowel sounds + Behavior: Appropriate and cooperative Extremities: no edema, no cyanosis Data : 04/20/21 05:40 04/20/21 05:40 Micro: Microbiology 04/18/21 21:20 Blood Culture - Preliminary Blood NEGATIVE TO DATE 04/18/21 21:25 Blood Culture - Preliminary Blood NEGATIVE TO DATE 04/18/21 17:55 MRSA Culture - Final Nose 04/18/21 17:53 Bacterial Antigens - Final Urine Kidney 04/18/21 17:53 Legionella Urinary Antigen - Final Urine,Voided A&P Assessment and plan (1) Pleural effusion: Status: Acute (2) Congestive heart failure: Status: Acute (3) Diabetes mellitus: Status: Acute Additional A&P Information CHF exacerbation DM Right Pleural Effusion Small pneumothorax Presenting today with chest pain and pleural effusion EKg without acute ST-T wave changes, trop series without significant delta Last admission w/up for pleural effusion revaled transudative effusion No malignancy on pathology, acute inflammation noted X ray today with worsening consolidation noted however loss of air bronchograms, suspicion for malignancy, CT Chest showed similar findings. Initial plan was to discharge patient and follow-up with pulmonology outpatient for possible bronc but after x-ray findings today we will keep the patient. Pulmonology to do chest tube today. Previous admission: Thoracentesis last admission revealed transudative fluid. CT chest: Continued atelectasis of the right lower lobe and prominence of the right hilum. With these findings and no significant interval change the possibility of bronchial obstruction should be considered. Without intravenous contrast further characterization cannot be made. Bronchoscopy possibly indicated as clinically warranted. Consulted pulmonology with the x-ray findings. Plan is to do chest tube for patient today. Will send for cytology. I have discussed all of the above with the patient and he is agreeable with the new plan. He does have a son but I will ask patient before calling him to make sure I can share his medical details with him. Repeat cardiac echo. Metoprolol Tartrate 50 mg BID Atorvastatin 40 mg daily Lasix 40mg iv q12h Check blood cx, MRSA PCR, bacterial ag, legionella Ag Empiric abx treatment with zosyn and vancomycin while undergoing evaluation Attestations Medical Necessity Statement*: Patient has chest tube now. Most likely discharge by or Monday. Time Spent in Patient Care: Greater than 35 minutes (>than 50% of time spent in counselling and/or direct pt care on unit). Coding Level of Care Code Acute Hydrostatic Tubing Tester for [facility] Diagnoses Pleural effusion J90 Congestive heart failure I50.9 Diabetes mellitus E11.9
[2021-04-20] MEDS: HYDROmorphone 1 mg/mL INJ 1 mL 0.5 MG IVP (16:13)
--- NOTE | 2021-04-20 16:47 | XR_ITS ---
WS: [id number] XR chest 1V portable [id number] REASON FOR EXAM: post chest tube insertion FINDINGS: Compared to previous examination of same day 0800 hours, a small bore chest tube has been placed in t he lower right hemithorax. Pigtail portion of the catheter overlies the right costophrenic angle. Rig ht pleural effusion has essentially resolved. There is atelectasis in the right lower lung. Consolidation in the left lower lung has progressed. This may be increasing atelectasis. Left pleural effusion may be larger. XR/XR chest 1V portable [id number] IMPRESSION: Placement of smallbore right chest tube with resolution of right pleural effusi on. Progression of abnormality in the left lower hemithorax as above.
--- NOTE | 2021-04-20 17:27 | PM.ACPR ---
Procedure/Consent Time out: Time Out Performed: Yes Consent: Consent for Procedure: Consent obtained from patient, Risks & Benefits reviewed and Agrees to proceed with procedure Procedure Narrative: Pulmonary & Critical Care Medicine Procedure Procedure: Ultrasound guided 14 Fr Pig tail insertion Ultrasound guided right pleural fluid Thoracentesis Indication: right hydropneumothorax [employer] Custodian(s): Gerald Wong MD Consent: Signed and placed in chart Anesthesia: 10 cc 1% lidocaine without epinephrine Description: Right pleural effusion was localized using ultrasound guidance and site marked accordingly. After chlorhexidine skin prep, area was draped in a sterile manner. 1% lidocaine was used for local anesthesia. 14 Fr catheter was then inserted into the pleural space with return of straw colored fluid. Catheter was connected to underwater seal and noted air bubbles on expiration. Then the pigtail is sutured in place, and a sterile dressing applied.Total of 2200 CC straw colored fluid drained in the chamber under gravity. Sent the fluid to various studies including analysis, cultures, cell count and cytology. Ultrasound guidance used: Yes. EBL:10 cc Complications: None Acute Procedures Epistaxis Control: Time out performed: Yes
--- NOTE | 2021-04-20 17:27 | PM.CONSULT ---
Providers/Reason For Consult Consulting Physician/Specialty*: Gerald Wong MD/Pulmonary Critical Care Reason for Consult*: Right hydropneumothorax Requesting Physician: Sarah Joyner MD Attending Physician: Sarah Joyner MD Primary Care Provider: Cristine Raza History of Present Illness History of Present Illness Patient is Mr. Ole Maldonado is a 75 year old male with PMH HTN, BPH, diabetes, CHF, COPD, CKD came to ER 04/18/2021 for shortness of breath and chest pain. Admitted to medical floor for CHF exacerbation. Admission x-ray showed worsening consolidation with loss of pneumothorax on right lower lobe. Chest CT showed moderate pleural effusion. Upon review of his chart he was admitted recently 03/21 to 03/26 with significant dyspnea on exertion, orthopnea, with lower extremity edema. Hospital course significant for acute congestive heart failure, with fluid overload as well as bilateral pleural effusions, larger on initial imaging, right > left. He was treated with IV diuresis with Lasix, additionally underwent thoracentesis of right pleural effusion on 03/23. He diuresed well, with resolution of lower extremity edema and most symptoms of dyspnea. As well as significant improvement in left-sided pleural effusion to the point that there was not enough fluid to attempt thoracentesis on the left side. Fluid from the right side was found transudate of on analysis. Echo during the stay was reported as normal other technically difficult study. Hospital stay was complicated by episodes of nausea, vomiting, abdominal discomfort, poor oral intake with finding of small bowel obstruction on CT abdomen pelvis with transition point in right mid abdomen without signs of ischemic changes. Managed conservatively. He declined to stay in the hospital for any additional assessment or treatment and requested to be discharged home the same evening.It was recommended he follow up for stress test and holter testing. Pulmonary consulted for recurrent pleural effusion with dyspnea/chest pain and apical pneumothorax on imaging with moderate pleural effusion. Patient seen bedside today states that at rest he has a dry cough has been lately unable to ambulate much as he is getting easily short of breath. Currently patient is on 2 L nasal cannula. Denies any other complaints. He understands that treatment recommendation Lasix due to congestive heart failure and wants to know why he has heart failure. Labs and imaging reviewed. Review of Systems General: Reports: 10 or more systems reviewed and unremarkable except in HPI and below Meds/Allergies Home Medications and Allergies Home Medications Medication Instructions Recorded Confirmed Last Taken Type amlodipine 10 mg PO DAILY 03/21/21 04/18/21 04/18/21 History aspirin 81 mg PO DAILY 03/21/21 04/18/21 04/18/21 History doxazosin 2 mg PO BEDTIME 03/21/21 04/18/21 04/17/21 History hydralazine 25 mg PO TID 03/21/21 04/18/21 04/18/21 History lisinopril-hydrochlorothiazide 1 tab PO BID 03/21/21 04/18/21 04/18/21 History metformin 500 mg PO BID 03/21/21 04/18/21 04/18/21 History metoprolol tartrate 50 mg PO BID 03/21/21 04/18/21 04/18/21 History atorvastatin [Lipitor] 40 mg PO QPM #30 tab 03/25/21 04/18/21 04/17/21 Rx furosemide [Lasix] 40 mg PO QAM PRN #30 tab 03/25/21 04/18/21 Unknown Rx Allergies Allergy/AdvReac Type Severity Reaction Status Date / Time No Known Allergies Allergy Verified 03/21/21 14:33 Current Medications Current Medications Generic Name Dose Route Start Last Admin Trade Name Freq PRN Reason Stop Dose Admin Albuterol/Ipratropium 3 ml 04/18/21 21:00 04/20/21 15:20 Ipratropium-Albuterol 3 Ml Neb INHALATION 3 ml Q6H.RESPIRATORY DAMARI Administration Aspirin 81 mg 04/19/21 09:00 04/20/21 08:28 Aspirin 81 Mg Chew Tablet PO 81 mg DAILY DAMARI Administration Atorvastatin Calcium 40 mg 04/18/21 19:13 04/19/21 17:07 Atorvastatin 40 Mg Tablet PO 40 mg QPM DAMARI Administration Budesonide 0.5 mg 04/18/21 19:13 04/20/21 08:55 Budesonide 0.5 Mg/2 Ml Neb INHALATION 0.5 mg BID.RESPIRATORY DAMARI Administration Ferrous Gluconate 324 mg 04/18/21 19:13 04/20/21 08:28 Ferrous Gluconate 324 Mg Tablet PO 324 mg BIDWM DAMARI Administration Furosemide 40 mg 04/18/21 18:00 04/20/21 05:14 Furosemide 10 Mg/Ml Sdv 4ml IVP 40 mg Q12H DAMARI Administration Piperacillin Sod/Tazobactam 50 mls @ 12.5 mls/hr 04/18/21 22:00 04/20/21 14:14 Sod 3.375 gm/ Sodium Chloride IV 12.5 mls/hr Q8H DAMARI Administration Protocol Vancomycin/PEG/NADA/Lysine/Water 1,250 mg in 250 mls @ 250 mls/hr 04/18/21 20:00 04/19/21 20:45 Vancocin IV Infused Q24H DAMARI Infusion Metoprolol Tartrate 50 mg 04/18/21 19:13 04/20/21 08:28 Metoprolol Tartrate 50 Mg Tablet PO 50 mg BID DAMARI Administration PFSH Acute PFSH: Medical History (Updated 04/20/21 @ 19:50 by Gerald Wong MD) Congestive heart failure Diabetes mellitus Hypertension Tobacco abuse Vitals/I&O/Wt Last Vital Signs Temp 99.1 F 04/20/21 15:12 Pulse 80 04/20/21 15:59 Resp 18 04/20/21 15:59 BP 160/68 04/20/21 15:12 Pulse Ox 95 04/20/21 15:59 04/20/21 04/20/21 04/20/21 06:59 14:59 22:59 Intake Total 170 / 1009.583 410 / 410 Output Total 1025 / 2840 300 / 300 Balance -855 / -1830.417 110 / 110 Weight last 48 hrs Weight 166 lb 8 oz Physical Exam Narrative: EXAM NARRATIVE: General: alert, NAD HEENT: conj clear, EOMI, PERRL, mmm, Neck: supple, no meningismus Heme: no cervical LAP Pulmonary: Reduced breath sounds on right lower lung Cardiovascular: rrr, nl s1s2, no mrg Abdomen: soft, nt, nd, no r/g, bs+ Extremities: pulses +, no edema, no c/c : no CVA tenderness Skin: intact, no rash MSK: no back or neck pain Neurologic: grossly intact Data Labs: Other Labs: Laboratory Results WBC 10.0 10^3/uL (4.0 -10.0) 04/20/21 05:40 RBC 4.20 10^6/uL (4.1 -5.3) 04/20/21 05:40 Hgb 12.3 g/dL (11.7-1 6.6) 04/20/21 05:40 Hct 37.1 % (42.0-52.0 ) L 04/20/21 05:40 MCV 88.3 fl (80-94) 04/20/21 05:40 MCH 29.3 pg (28.0-34. 0) 04/20/21 05:40 MCHC 33.2 g/dL (30.0-3 6.0) 04/20/21 05:40 RDW 15.1 % (12.1-15.1 ) 04/20/21 05:40 Plt Count 180 10^3/cmm (130 -400) 04/20/21 05:40 MPV 9.8 fL (7.4-10.4) 04/20/21 05:40 Neut % (Auto) 65.1 % 04/20/21 05:40 Lymph % (Auto) 22.4 % 04/20/21 05:40 [place] % (Auto) 10.4 % 04/20/21 05:40 Eos % (Auto) 1.0 % 04/20/21 05:40 Baso % (Auto) 0.7 % 04/20/21 05:40 Neut # (Auto) 6.48 10^3/uL (1.8 -7.7) 04/20/21 05:40 Lymph # (Auto) 2.2 10^3/uL (0.8- 4.8) 04/20/21 05:40 [place] # (Auto) 1.0 10^3/uL (0.2- 0.9) H 04/20/21 05:40 Eos # (Auto) 0.1 10^3/uL (0.0- 0.8) 04/20/21 05:40 Baso # (Auto) 0.1 10^3/uL (0.0- 0.1) 04/20/21 05:40 Nucleated RBC % (a uto) 0 % 04/20/21 05:40 Nucleated RBCs # 0.0 /100WBC 04/20/21 05:40 Differential Comme nt Yes 04/20/21 16:51 Sodium 136 mmol/L (136-1 45) 04/20/21 05:40 Potassium 3.0 mmol/L (3.5-5 .1) L 04/20/21 05:40 Chloride 96 mmol/L (98-107 ) L 04/20/21 05:40 Carbon Dioxide 29 mmol/L (22-29) 04/20/21 05:40 Anion Gap 14.0 (5-19) 04/20/21 05:40 BUN 26 mg/dL (8-23) H 04/20/21 05:40 Creatinine 2.5 mg/dL (0.7-1. 2) H 04/20/21 05:40 GFR Calculation Not Reportable 04/20/21 05:40 Glucose 94 mg/dL (65-115) 04/20/21 05:40 Calculated Osmolal ity 287 mOsm/kg (285- 295) 04/20/21 05:40 Calcium 8.4 mg/dL (8.5-10 .5) L 04/20/21 05:40 Magnesium 1.5 mg/dL (1.7-2. 3) L 04/20/21 05:40 Iron 31 ug/dL (59-158) L 04/18/21 15:36 TIBC 300 mcg/dl 04/18/21 15:36 % Saturation 10.3 % (20-50) L 04/18/21 15:36 Unsat Iron Binding 269 ug/dL (112-34 7) 04/18/21 15:36 Total Bilirubin 1.2 mg/dL (0.15-1 .2) 04/19/21 04:51 AST 11 U/L (0-40) 04/19/21 04:51 ALT 9 U/L (0-41) 04/19/21 04:51 Alkaline Phosphata se 52 IU/L (40-130) 04/19/21 04:51 Troponin T Baselin e 33 ng/L (0-15) H 04/18/21 15:36 Troponin T 120 Min ck 30.47 ng/L (0-15) H 04/18/21 17:33 Delta Troponin T -2.53 ABS# (0-10) L 04/18/21 17:33 Troponin T Hi Sens 6Hr 38.96 ng/L (0-15) H 04/18/21 21:20 Troponin T Hi Sens 6Hr Delta 5.96 ng/L (0-12) 04/18/21 21:20 NT-Pro-B Natriuret Pep 5644 pg/mL (0-450 ) H 04/18/21 15:36 Total Protein 5.3 g/dL (6.6-8.7 ) L D 04/19/21 04:51 Albumin 3.0 g/dL (3.5-5.2 ) L 04/19/21 04:51 Globulin 2.3 g/dL (1.3-4.6 ) 04/19/21 04:51 Lipase 35 U/L (13-60) 04/18/21 15:36 Procalcitonin 0.26 ng/mL (0-0.5 ) 04/19/21 04:51 TSH 2.04 uIU/mL (0.27 -4.20) 04/18/21 15:36 Urine Color Yellow (Yellow) 04/18/21 17:53 Urine Appearance Clear (CLEAR) 04/18/21 17:53 Urine pH 7 (5-7) 04/18/21 17:53 Ur Specific Gravit y 1.005 (1.005-1.0 30) 04/18/21 17:53 Urine Protein 2+ (Negative) H 04/18/21 17:53 Urine Glucose (UA) Trace (Normal) H 04/18/21 17:53 Urine Ketones Negative (Negati ve) 04/18/21 17:53 Urine Blood Neg (Negative) 04/18/21 17:53 Urine Nitrate Negative (Negati ve) 04/18/21 17:53 Urine Bilirubin Neg (Negative) 04/18/21 17:53 Urine Urobilinogen Norm mg/dL (Negat aubrie) 04/18/21 17:53 Ur Leukocyte Rima ase Negative (Negati ve) 04/18/21 17:53 Urine RBC 0-4 /hpf (0-2) H 04/18/21 17:53 Urine WBC 0-4 /hpf (0-5) H 04/18/21 17:53 Ur Squamous Epith Cells 0-4 /hpf (0-5) H 04/18/21 17:53 Amorphous Sediment Not Reportable 04/18/21 17:53 Urine Bacteria Trace /hpf (NONE) 04/18/21 17:53 Fluid Color Yellow 04/20/21 16:51 Fluid Appearance Cloudy 04/20/21 16:51 Fluid Specific Gra v 1.005 04/20/21 16:51 Fluid pH 8.0 10/12/21 16:51 Fluid WBC 2064 /uL 04/20/21 16:51 Fluid RBC 1.000 10^3/uL 04/20/21 16:51 Fld Polynuclear WB Cs # 1.459 04/20/21 16:51 Fld Polynuclear WB Cs % 70.700 % 04/20/21 16:51 Fl Mononucl WBCs # (Auto) 0.605 04/20/21 16:51 Fl Mononuclear % A uto 29.300 % 04/20/21 16:51 Fluid Glucose 141.0 mg/dL 04/20/21 16:51 Fluid Albumin 1.9 g/dL 04/20/21 16:51 Fluid LDH 201 U/L 04/20/21 16:51 Fluid Amylase 42 U/L 04/20/21 16:51 Fluid Alk Phosphat ase 17 IU/L 04/20/21 16:51 Fluid Cholesterol 30 mg/dL (0-200) 04/20/21 16:51 Fluid Triglyceride s 29 mg/dL (0-150) 04/20/21 16:51 Fluid Uric Acid 6 mg/dL 04/20/21 16:51 Pleural Total Prot ein 2.6 g/dL 04/20/21 16:51 Vancomycin Trough 15.9 ug/mL (10-15 ) H 04/20/21 18:[address] 04/19/21 07:00 IMPRESSION: Continued atelectasis of the right lower lobe and prominence of the right hilum. With these findings and no significant interval change the possibility of bronchial obstruction should be considered. Without intravenous contrast further characterization cannot be made. Bronchoscopy possibly indicated as clinically warranted. Micro: Micro: Microbiology 04/18/21 21:20 Blood Culture - Pr eliminary Blood NEGATIVE TO RAMONA E 04/18/21 21:25 Blood Culture - Pr eliminary Blood NEGATIVE TO RAMONA E 04/18/21 17:55 MRSA Culture - Fin al Nose A&P Assessment and plan (1) Hydropneumothorax: Status: Acute (2) Congestive heart failure: Status: Acute Qualifiers: Heart failure type: unspecified Heart failure chronicity: unspecified Qualified Code(s): I50.9 - Heart failure, unspecified (3) Tobacco abuse: Status: Acute (4) Pleural effusion: Status: Acute (5) Acute kidney injury: Status: Acute (6) Hypertension: Status: Acute Qualifiers: Hypertension type: unspecified Qualified Code(s): I10 - Essential (primary) hypertension #Right hydropneumothorax in patient with underlying diastolic heart failure # STEVEN on CKD in pt with BPH/DM/CHF # H/o COPD in chronic smoker -s/p right side thoracentesis 1000 cc during last admission 03/22/21 -Analysis showed trasudative fluid consistent with CHF; BNP 5544 -ECHO 03/22/21: Reported Possibly normal LV size and ejection fraction. Techinically difficult and limited study; - However pt has history of Afib with HR controlled; was told to take water pill at outside hospital - Also has all the risk factors for Ischemic cardiomyopathy; he was supposed to follow up with cardiology post discharge but he did not. - Discharged with Lasix 40 mg daily - This admission BNP is again > 5000; complaining dyspnea on exertion and imaging showed recurring right pleural effusion with atelectasis of right lower lobe. Also reported possible bronchial obstruction.Small apical pneumothorax can be from previuos thoracentesis - likely trapped lung although less likely it is seen at apex. Given the clinical context; fluid is secondary to CHF and recommended aggressive diuresis; -However as pt is symptomatic and has dysnea on ambulation - placed a pigtail & drained 2000 cc Trasudative fluid and left under waterseal for pneumothorax. I will clamp the tube overnight to see if pneumothorax worsens; if it does not reaccumulate or worsen - I will remove pigtail. -repeat Echo and may need cardiology evaluation for ischemic vs non ischemic cardiac failure sooner than later in this non compliant patient. - Given smoking history - need PFTs as outpt for COPD and adjustment of inhalers. Continue q 6 hr prn nebulizations. Discharge with Spriiva 2 puffs daily and will follow up in pulmonary clinic. - procal is 0.26; clinically does not seem have infection, however blood cultures; MRSA nares, bacterial antigens, legionella antigen are negative. rest of the comorbidities managed as per the patient Medical condition and management plan updated to the patient and he verbalised understanding and agreed to plan. Recommendations conveyed to hospitalist and RN taking Care of the patient Consult Attestations Medical Necessity Statement: will observer for 24 hrs for worsening pneumothorax and will take out pigtail Time Spent in Patient Care: Greater than 35 minutes (>than 50% of time spent in counselling and/or direct pt care on unit). Critical Care Time: Critical Care Time (min): 50 Coding Level of Care Code Established Pt Acute Template Reproduction Technician for Chg Fwd Patient Type Established History Comprehensive Exam Comprehensive Medical Decision Making Moderate Complexity Diagnoses Hydropneumothorax J94.8 Congestive heart failure I50.9 Heart failure type: unspecified Heart failure chronicity: unspecified Tobacco abuse Z72.0 Pleural effusion J90 Acute kidney injury N17.9 Hypertension I10 Hypertension type: unspecified Time Spent (min) 50
[2021-04-20] MEDS: atorvastatin 40 mg Tablet PO (17:53)
[2021-04-20] MEDS: heparin 5,000 unit/mL INJ 1 mL 5000 UNIT SUBCUT (17:53)
[2021-04-20 18:06] LABS: Apprearance, Body Fluid CLOUDY; Body Fluid Polynuclear #Cells 1.459; Body Fluid WBC 2064 /uL; Color, Body Fluid YELLOW; Monocytes # Body Fluid 0.605
[2021-04-20 18:07] LABS: Body Fluid Specific Gravity 1.005; PATH Referral YES
[2021-04-20 18:20] LABS: Albumin Body Fluid 1.9 g/dL; Amylase Body Fluid 42 U/L; Fluid Alkaline Phos. 17 IU/L
[2021-04-20 18:21] LABS: Cholesterol Body Fluid 30 mg/dL (0-200); LDH Body Fluid 201 U/L; Total Protein Pleural Fluid 2.6 g/dL; Triglycerides Body Fluid 29 mg/dL (0-150); Uric Acid Body Fluid 6 mg/dL
[2021-04-20 19:34] LABS: Vancomycin Trough 15.9 ug/mL (10-15)
[2021-04-20] MEDS: vancomycin 1,250 MG/250 ML PIGGYBACK 250 MG IV (20:15)
[2021-04-20] MEDS: potassium chloride oral liq 20 mEq/15 mL UDC 40 MEQ PO (20:30)
[2021-04-20] MEDS: magnesium sulfate premix 2 GM/50 ML PIGGYBACK IV (22:03)
--- NOTE | 2021-04-20 23:00 | XRR_ITS ---
PROCEDURE INFORMATION: Exam: XR Chest Exam date and time: 04/20/2021 11:00 PM Age: 75 years old Clinical indication: Shortness of breath; Additional info: Pneumothorax TECHNIQUE: Imaging protocol: XR of the chest. Views: 1 view. COMPARISON: CR XR chest 1V portable [id number] 04/20/2021 4:57 PM FINDINGS: Tubes, catheters and devices: Possible trace right apical pneumothorax with 6 mm separation between the lung and pleura, partially visualized is a chest tube in the right costophrenic angle. Lungs: Right lower lobe atelectasis versus minimal infiltrate. Pleural spaces: Unremarkable. No pleural effusion. No pneumothorax. Heart/Mediastinum: Cardiomegaly. Bones/joints: Unremarkable. XR/XR chest 1V portable [id number] IMPRESSION: 1. Possible trace right apical pneumothorax with 6 mm separation between the lung and pleura, partially visualized is a chest tube in the right costophrenic angle. 2. Right lower lobe atelectasis versus minimal infiltrate. 3. Cardiomegaly. Radiation Dose CTDIVOL = (mGy): DLP = (mGy-cm)
[2021-04-21] VITALS (12 sets, daily range): BP systolic 125–160; BP diastolic 68–78; PULSE 68–94; RESP 16–18; TEMP 36.6–36.8; O2SAT 89–94
[2021-04-21] MEDS: heparin 5,000 unit/mL INJ 1 mL 5000 UNIT SUBCUT ×3 (00:19→16:49)
[2021-04-21] MEDS: ipratropium-albuterol 3 mL Neb INHALATION ×3 (04:30→21:40)
[2021-04-21 05:58] LABS: Basophils # 0.1 10^3/uL (0.0-0.1); Basophils % 0.4 %; Eosinophils # 0.3 10^3/uL (0.0-0.8); Eosinophils % 2.3 %; Hemoglobin 14.1 g/dL (11.7-16.6); Lymphocytes # 3.5 10^3/uL (0.8-4.8); Lymphocytes % 29.4 %; Mean Corpuscular Hemoglobin 28.8 pg (28.0-34.0); Mean Corpuscular Volume 89.8 fl (80-94); Mean Platelet Volume 9.8 fL (7.4-10.4); Monocytes # 1.1 10^3/uL (0.2-0.9); Monocytes % 9.5 %; Neutrophils # 6.99 10^3/uL (1.8-7.7); Neutrophils % 58.2 %; Nucleated Red Blood Cells % 0 %; Platelet Count 198 10^3/cmm (130-400)
[2021-04-21 06:18] LABS: Anion Gap 19.3 (5-19); Blood Urea Nitrogen 28 mg/dL (8-23); Calcium 8.7 mg/dL (8.5-10.5); Carbon Dioxide 26 mmol/L (22-29); Chloride 94 mmol/L (98-107); Glucose 98 mg/dL (65-115); Osmolality Calculated 287 mOsm/kg (285-295); Potassium 3.3 mmol/L (3.5-5.1); Sodium 136 mmol/L (136-145)
[2021-04-21] MEDS: piperacillin-tazobactam 3.375 GM in sodium chloride 0.9% (plus) 50 ML IV (06:36)
[2021-04-21] MEDS: FUROsemide 10 mg/mL SDV 4mL 40 MG IVP ×2 (06:36→17:19)
--- NOTE | 2021-04-21 07:11 | XR_ITS ---
WS: [id number] XR chest 1V portable [id number] REASON FOR EXAM: pneumothorax FINDINGS: The chest is unchanged compared to the examination of 10:30 PM 04/20/2021. Consolidation in the left lower lobe with left pleural effusion. Small bore chest tube in the right hemithorax. Opacity in the right lower lung may represent reexpand ing right lower lobe. XR/XR chest 1V portable [id number] IMPRESSION: Stable abnormal chest.
--- NOTE | 2021-04-21 07:51 | USCV_ITS ---
Ole Maldonado Age: 75 Gender: M : 1945 Exam Date: 04/21/2021 11:55 Ordering Phys: Sarah Joyner MD Technologist: KATHIE [place] [facility] [place] Indication: CHF BP: 125 / 73 HR: 71 Rhythm: Other Technical Quality: Poor MEASUREMENTS (Male / Female) Normal Values 2D ECHO LV Diastolic Diameter PLAX 4.6 cm 4.2 - 5.9 / 3.9 - 5.3 cm LV Systolic Diameter PLAX 2.9 cm IVS Diastolic Thickness 1.1 cm 0.6 - 1.0 / 0.6 - 0.9 cm IVS Systolic Thickness 2.1 cm LVPW Diastolic Thickness 1.7 cm 0.6 - 1.0 / 0.6 - 0.9 cm LVPW Systolic Thickness 2.3 cm LVOT Diameter 2.0 cm LV Ejection Fraction 2D Teich 67.9 % LV Ejection Fraction MOD 2C 68.7 % LV Ejection Fraction 2C AL 69.0 % LA Diameter 3.0 cm LA Width 3.6 cm LA Height 4.6 cm RA Width 2.9 cm RA Height 4.0 cm Aorta at Sinotubular Diameter 2.0 cm M-MODE Aortic Annulus Diameter 3.3 cm LA Ao Ratio MM 0.8 MV E Point Septal Separation 0.8 cm DOPPLER AV Peak Velocity 90.0 cm/s LVOT Peak Velocity 75.0 cm/s AV Area Cont Eq vti 2.4 cm squared AV Area Cont Eq pk 2.7 cm squared MV Area PHT 3.9 cm squared MV E' Velocity 47.0 cm/s Mitral E to MV E' Ratio 8.5 Mitral E to LV E' Lateral Ratio 6.7 Mitral E to LV E' Septal Ratio 11.4 TR Peak Velocity 278.5 cm/s TR Peak Gradient 31.0 mmHg TR Mean Velocity 207.5 cm/s TR Mean Gradient 19.0 mmHg TR Velocity Time Integral 74.3 cm Right Atrial Pressure 3.0 mmHg Pulmonary Artery Systolic Pressu 34.0 mmHg PV Peak Velocity 111.0 cm/s RV Acceleration Time 0.1 s RV Ejection Time 0.3 s RV AcT/ET 0.3 FINDINGS Left Ventricle Normal left ventricular cavity size. Possibly mildly decreased left ventricle systolic function. Left ventricular ejection fraction is estimated at 45 %. This study is inadequate for assessment of regional wall motion abnormality. Abnormal diastolic function. Right Ventricle Right ventricle not well visualized. Probably mildly decreased right ventricular systolic function. Right ventricular systolic pressure 34 mmHg. Right Atrium Right atrium not well visualized. Left Atrium Left atrium not well visualized. Probably mildly increased left atrial size. Mitral Valve Structurally normal mitral valve. No mitral valve stenosis. No mitral valve regurgitation. Aortic Valve Aortic valve not well visualized. No aortic valve stenosis. Tricuspid Valve Structurally normal tricuspid valve. Pulmonic Valve Pulmonic valve not well visualized. No pulmonary valve stenosis. Pericardium No pericardial effusion. Aorta Normal-sized aortic root. CONCLUSIONS 1. This is a technically difficult study. 2. Normal left ventricular cavity size. Possibly mildly decreased left ventricle systolic function. Left ventricular ejection fraction is estimated at 45 %. This study is inadequate for assessment of regional wall motion abnormality. Abnormal diastolic function. 3. Probably mildly decreased right ventricular systolic function. 4. Direct comparison to previous study done a month ago is not possible due to technically difficult nature of the study. Renetta Bonilla MD (Electronically Signed) Final Date: 21 April 2021 17:03 S
[2021-04-21 07:57] LABS: Magnesium 2.1 mg/dL (1.7-2.3)
[2021-04-21] MEDS: ferrous gluconate 324 mg Tablet PO ×2 (08:30→17:19)
[2021-04-21] MEDS: metoprolol tartrate 50 mg Tablet PO ×2 (08:30→17:19)
[2021-04-21] MEDS: aspirin 81 mg Chew Tablet PO (08:30)
--- NOTE | 2021-04-21 09:20 | PC.NURSE ---
Chest tube currently clamped. Patient not endorsing any pain at this time.
[2021-04-21] MEDS: budesonide 0.5 mg/2 mL Neb INHALATION ×2 (09:50→21:40)
--- NOTE | 2021-04-21 11:38 | P.PN_ITS ---
Subjective Subjective: Interval history: Seen this morning. Patient received chest tube yesterday with Dr. Starkey. 2200 cc of straw-colored fluid was obtained. It was sent to lab for cytology. Repeat echo is pending at this point. Patient states he is doing well and feeling better. He would like me to call his son Ole Maldonado Jr. I did call Mr. Maldonado and left a voicemail for him to call me back. Vitals/I&O/Wt Last Vital Signs Temp 98.3 F 04/21/21 11:31 Pulse 70 04/21/21 11:31 Resp 17 04/21/21 11:31 BP 135/72 04/21/21 11:31 Pulse Ox 93 04/21/21 11:31 04/20/21 04/21/21 04/21/21 22:59 06:59 14:59 Intake Total 540 / 950 340 / 1290 480 / 480 Output Total 1100 / 1400 950 / 950 Balance -560 / -450 340 / -110 -470 / -470 Physical Exam Narrative: EXAM NARRATIVE: General: Alert oriented x3, patient seen and examined this morning. Patient sitting in bed. She is appearing well. HEENT: Normocephalic, atraumatic, EOMI, breathing room air. Cardio: Regular rate rhythm, normal S1-S2, no murmurs rubs gallops, Respiratory: Good bilateral air entry, no wheezes no rhonchi appreciated. Chest clear to auscultation mainly very mild crackles appreciated right lung base. Chest tube in place draining clear transudative appearing fluid. GI: Abdomen soft, nontender, nondistended, bowel sounds + Behavior: Appropriate and cooperative Extremities: no edema, no cyanosis Data : 04/21/21 05:15 04/21/21 05:15 A&P Assessment and plan (1) Pleural effusion: Status: Acute (2) Congestive heart failure: Status: Acute Qualifiers: Heart failure chronicity: unspecified Heart failure type: unspecified Qualified Code(s): I50.9 - Heart failure, unspecified (3) Diabetes mellitus: Status: Acute Qualifiers: Diabetes mellitus type: type 2 Diabetes mellitus buttermaker continuous churn insulin use: unspecified correction insulin use status Diabetes mellitus complication status: with kidney complications Diabetes mellitus complication detail: with chronic k idney disease Chronic kidney disease stage: unspecified stage Qualified Code(s): E11.22 - Type 2 diabetes mellitus with diabetic chronic kidney disease Additional A&P Information CHF exacerbation DM Right Pleural Effusion Small pneumothorax status post chest tube Presented with with chest pain and pleural effusion EKg without acute ST-T wave changes, trop series without significant delta Last admission w/up for pleural effusion revaled transudative effusion No malignancy on pathology, acute inflammation noted X ray today with worsening consolidation noted however loss of air bronchograms, suspicion for malignancy, CT Chest showed similar findings. Patient has chest tube in place. Pulmonology is following up with x-rays and drainage. Tube has been clamped at this time. 2200 cc fluid removed. Fluid sent for cytology and culture. Chest tube might be removed to the evening or tomorrow morning. There is no progression seen of the pneumothorax. Repeat cardiac echo pending. Depending on what echo shows patient might need ischemic work-up. We will continue patient on Lasix 40 IV twice daily for now. Patient made 2 L of urine last 24 hours. Previous admission: Thoracentesis last admission revealed transudative fluid. CT chest: Continued atelectasis of the right lower lobe and prominence of the right hilum. With these findings and no significant interval change the possibility of bronch ial obstruction should be considered. Without intravenous contrast further characterization cannot be made. Bronchoscopy possibly indicated as clinically warranted. Metoprolol Tartrate 50 mg BID Atorvastatin 40 mg daily Lasix 40mg iv q12h Check blood cx, MRSA PCR, bacterial ag, legionella Ag Empiric abx treatment with zosyn and vancomycin while undergoing evaluation Attestations Medical Necessity Statement*: Patient has chest tube. Time Spent in Patient Care: 16 - 35 minutes Coding Level of Care Code Acute Solar Photovoltaic Electrician for g Fwd Diagnoses Pleural effusion J90 Congestive heart failure I50.9 Heart failure chronicity: unspecified Heart failure type: unspecified Diabetes mellitus E11.22 Diabetes mellitus type: type 2 Diabetes mellitus correction insulin use: unspecified correction insulin use status Diabetes mellitus complication status: with kidney complications Diabetes mellitus complication detail: with chronic kidney disease Chronic kidney disease stage: unspecified stage
--- NOTE | 2021-04-21 16:35 | XRR_ITS ---
PROCEDURE INFORMATION: Exam: XR Chest Exam date and time: 04/21/2021 4:35 PM Age: 75 years old Clinical indication: Device placement; Chest tube; Additional info: Chest tube removal TECHNIQUE: Imaging protocol: XR of the chest. Views: 1 view. COMPARISON: CR XR chest 1V portable [id number] 04/21/2021 7:18 AM FINDINGS: Lungs: Decreasing consolidation in the left lower lobe. Persistent streaky opacification at the right lower lung potentially atelectasis. Pleural spaces: Similar positioning of a right chest tube along the periphery of the right lower lung. No evident pleural effusion or pneumothorax. Heart/Mediastinum: No cardiomegaly. Bones/joints: Unremarkable. XR/XR chest 1V portable [id number] IMPRESSION: 1. Similar positioning of right chest tube peripheral to the right lower lung. 2. Decreasing consolidation in the left lung base. Persistent streaky opacities at the right lung base, potentially atelectasis. Radiation Dose CTDIVOL = (mGy): DLP = (mGy-cm)
[2021-04-21] MEDS: atorvastatin 40 mg Tablet PO (17:19)
[2021-04-22] VITALS (14 sets, daily range): BP systolic 129–168; BP diastolic 74–87; PULSE 74–96; RESP 16–19; TEMP 36.6–36.8; O2SAT 92–97
[2021-04-22] MEDS: heparin 5,000 unit/mL INJ 1 mL 5000 UNIT SUBCUT ×3 (00:25→18:06)
[2021-04-22] MEDS: ipratropium-albuterol 3 mL Neb INHALATION ×4 (03:12→21:18)
--- NOTE | 2021-04-22 06:00 | XR_ITS ---
WS: [id number] XR chest 1V portable [id number] REASON FOR EXAM: pneumonia FINDINGS: Small bore right chest tube remains in place overlying the right costophrenic angle. S right lower lung opacity. Persistent consolidation in the left lower lung with left pleural effusion. No new findings. XR/XR chest 1V portable [id number] IMPRESSION: Decreasing opacity in the right lower lung. Chest otherwise unchanged.
[2021-04-22] MEDS: FUROsemide 10 mg/mL SDV 4mL 40 MG IVP ×2 (06:10→18:06)
[2021-04-22] MEDS: ferrous gluconate 324 mg Tablet PO ×2 (07:49→18:06)
[2021-04-22] MEDS: aspirin 81 mg Chew Tablet PO (07:49)
[2021-04-22] MEDS: sennosides-docusate Tablet 2 TAB PO ×2 (07:49→18:06)
[2021-04-22] MEDS: metoprolol tartrate 50 mg Tablet PO (07:49)
[2021-04-22] MEDS: budesonide 0.5 mg/2 mL Neb INHALATION ×2 (09:14→21:18)
--- NOTE | 2021-04-22 11:35 | PC.SOCIAL ---
IMM Update Pg. 2 of IMM updated and reviewed with patient who verbalized understanding. Copy provided.
--- NOTE | 2021-04-22 12:17 | PM.CONSULT ---
Providers/Reason For Consult Consulting Physician/Specialty*: Joaquin Womack MD/ Cardiology Reason for Consult*: Congestive heart failure Requesting Physician: Dr Joyner Attending Physician: Sarah Joyner MD Primary Care Provider: Cristinelexx Raaz History of Present Illness History of Present Illness 75-year-old man with past medical history of diabetes, congestive heart failure, CKD presented to hospital with chest discomfort and shortness of breath. Had volume overload and CT chest showed a moderate pleural effusion. He had similar admission last month as well. Echocardiogram performed during this admission shows a mildly reduced EF of 45% however it was technically limited quality study and regional wall motion normalities could not be assessed. Getting diuresed at this time. Thoracentesis revealed transudative fluid. NT proBNP more than 5000 at this and unchanged from last month. Review of Systems General: Reports: 10 or more systems reviewed and unremarkable except in HPI and below Const: Denies: fever(s), chills or body aches Eyes: Denies: change in vision, blurry vision or photophobia ENMT: Reports: hoarseness; Denies: throat pain, enlarged tonsils, odynophagia or nasal congestion Card: Reports: dyspnea on exertion; Denies: chest pain, palpitations, irregular heart rhythm, edema, swelling of feet/ankles, lightheadedness, pre-syncope or orthopnea Resp: Reports: dyspnea; Denies: productive cough, non-productive cough, wheezing, stridor, pain on inspiration, change in phlegm color, hemoptysis or chest congestion GI: Denies: abdominal pain, nausea, vomiting, hematemesis, coffee ground emesis, dysphagia, heartburn, diarrhea, constipation, GI cramping, change in stool character, hematochezia or melena : Denies: flank pain, dysuria, urinary frequency, urinary urgency, urinary hesitancy or hematuria Musc: Denies: neck pain, back pain, extremity pain, joint swelling, joint warmth or deformity Neuro: Denies: headache(s), numbness in extremities, weakness in extremities, sensory changes, difficulty walking, frequent falls, dizziness, vertigo, behavioral changes, Slurred speech present or seizure-like activity Psych: Denies: anxiety, depression, suicidal ideation or homicidal ideation Endo: Denies: polyuria, polydipsia, tired all the time, cold intolerance or hot flashes Zach/Lymph: Denies: easy bruising or easy bleeding Meds/Allergies Home Medications and Allergies Home Medications Medication Instructions Recorded Confirmed Last Taken Type amlodipine 10 mg PO DAILY 03/21/21 04/18/21 04/18/21 History aspirin 81 mg PO DAILY 03/21/21 04/18/21 04/18/21 History doxazosin 2 mg PO BEDTIME 03/21/21 04/18/21 04/17/21 History hydralazine 25 mg PO TID 03/21/21 04/18/21 04/18/21 History lisinopril-hydrochlorothiazide 1 tab PO BID 03/21/21 04/18/21 04/18/21 History metformin 500 mg PO BID 03/21/21 04/18/21 04/18/21 History metoprolol tartrate 50 mg PO BID 03/21/21 04/18/21 04/18/21 History atorvastatin [Lipitor] 40 mg PO QPM #30 tab 03/25/21 04/18/21 04/17/21 Rx furosemide [Lasix] 40 mg PO QAM PRN #30 tab 03/25/21 04/18/21 Unknown Rx Allergies Allergy/AdvReac Type Severity Reaction Status Date / Time No Known Allergies Allergy Verified 03/21/21 14:33 Current Medications Current Medications Generic Name Dose Route Start Last Admin Trade Name Freq PRN Reason Stop Dose Admin Albuterol/Ipratropium 3 ml 04/18/21 21:00 04/22/21 09:14 Ipratropium-Albuterol 3 Ml Neb INHALATION 3 ml Q6H.RESPIRATORY DAMARI Administration Aspirin 81 mg 04/19/21 09:00 04/22/21 07:49 Aspirin 81 Mg Chew Tablet PO 81 mg DAILY DAMARI Administration Atorvastatin Calcium 40 mg 04/18/21 19:13 04/21/21 17:19 Atorvastatin 40 Mg Tablet PO 40 mg QPM DAMARI Administration Budesonide 0.5 mg 04/18/21 19:13 04/22/21 09:14 Budesonide 0.5 Mg/2 Ml Neb INHALATION 0.5 mg BID.RESPIRATORY DAMARI Administration Ferrous Gluconate 324 mg 04/18/21 19:13 04/22/21 07:49 Ferrous Gluconate 324 Mg Tablet PO 324 mg BIDWM DAMARI Administration Furosemide 40 mg 04/18/21 18:00 04/22/21 06:10 Furosemide 10 Mg/Ml Sdv 4ml IVP 40 mg Q12H DAMARI Administration Heparin Sodium (Porcine) 5,000 unit 04/20/21 16:00 04/22/21 07:50 Heparin 5,000 Unit/Ml Inj 1 Ml SUBCUT 5,000 unit Q8H DAMARI Administration Metoprolol Tartrate 50 mg 04/18/21 19:13 04/22/21 07:49 Metoprolol Tartrate 50 Mg Tablet PO 50 mg BID DAMARI Administration Senna/Docusate Sodium 2 tab 04/21/21 18:00 04/22/21 07:49 Sennosides-Docusate Tablet PO 2 tab BID DAMARI Administration PFSH Acute PFSH: Medical History Congestive heart failure Diabetes mellitus Hypertension Tobacco abuse Vitals/I&O/Wt Last Vital Signs Temp 97.8 F 04/22/21 07:33 Pulse 74 04/22/21 09:15 Resp 18 04/22/21 09:15 BP 129/82 04/22/21 07:33 Pulse Ox 94 04/22/21 09:15 04/21/21 04/22/21 04/22/21 22:59 06:59 14:59 Intake Total 360 / 1130 720 / 1850 Output Total 1325 / 2275 300 / 2575 150 / 150 Balance -965 / -1145 420 / -725 -150 / -150 Physical Exam Narrative: EXAM NARRATIVE: GENERAL: Patient is alert, awake and oriented x3. [] NECK: No jugular vein distension. [] HEENT: No cyanosis. No icterus. No pallor. [] HEART: Regular S1 and S2. No murmur, rub or gallop. [] LUNGS: Diminished sounds bilaterally ABDOMEN: Soft, nontender and nondistended. Positive bowel sounds. No guarding, rebound or tenderness. [] CENTRAL NERVOUS SYSTEM: Grossly nonfocal. [] EXTREMITIES: Lower extremities with 1+ edema bilaterally. Pulses palpable in the lower extremities, both dorsalis pedis and posterior tibial. [] Data Micro: Micro: Microbiology 04/20/21 16:51 Gram Stain - Final Pleural Fluid Body Fluid Culture - Preliminary A&P Assessment and plan (1) Hypertension: Status: Acute Qualifiers: Hypertension type: unspecified Qualified Code(s): I10 - Essential (primary) hypertension (2) Tobacco abuse: Status: Acute (3) Congestive heart failure: Status: Acute Qualifiers: Heart failure chronicity: unspecified Heart failure type: unspecified Qualified Code(s): I50.9 - Heart failure, unspecified (4) Pleural effusion: Status: Acute (5) Diabetes mellitus: Status: Acute Qualifiers: Diabetes mellitus type: type 2 Diabetes mellitus intermediate card tender insulin use: unspecified senior living insulin use status Diabetes mellitus complication status: with kidney complications Diabetes mellitus complication detail: with chronic kidney disease Chronic kidney disease stage: unspecified stage Qualified Code(s): E11.22 - Type 2 diabetes mellitus with diabetic chronic kidney disease Patient's respiratory status has improved significantly since admission. Continue IV Lasix for now. Strict I&O monitoring. Given his significant CKD, will rule out ischemia as cause of congestive heart failure with Lexiscan. N.p.o. past midnight for that. Monitor renal function. Thank you for involving us with care of this patient. We will continue to follow. Please call with questions. Coding Level of Care Code Acute [place] Utility Worker for [facility] Fwd Diagnoses Hypertension I10 Hypertension type: unspecified Tobacco abuse Z72.0 Congestive heart failure I50.9 Heart failure chronicity: unspecified Heart failure type: unspecified Pleural effusion J90 Diabetes mellitus E11.22 Diabetes mellitus type: type 2 Diabetes mellitus intermediate card tender insulin use: unspecified senior living insulin use status Diabetes mellitus complication status: with kidney complications Diabetes mellitus complication detail: with chronic kidney disease Chronic kidney disease stage: unspecified stage
--- NOTE | 2021-04-22 12:46 | P.PN_ITS ---
Subjective Subjective: Interval history: Seen this morning. Patient is wondering when he can go home. Chest tube was removed this morning. Echo report came back with EF of 45%. Patient feels well. He does not have any symptoms complaints today. He understands why he needs to stay in the hospital for further investigation. Vitals/I&O/Wt Last Vital Signs Temp 97.8 F 04/22/21 07:33 Pulse 74 04/22/21 09:15 Resp 18 04/22/21 09:15 BP 129/82 04/22/21 07:33 Pulse Ox 94 04/22/21 09:15 04/21/21 04/22/21 04/22/21 22:59 06:59 14:59 Intake Total 360 / 1130 720 / 1850 Output Total 1325 / 2275 300 / 2575 150 / 150 Balance -965 / -1145 420 / -725 -150 / -150 Physical Exam Narrative: EXAM NARRATIVE: General: Alert oriented x3, patient seen and examined this morning. Patient sitting in bed. HEENT: Normocephalic, atraumatic, EOMI, breathing room air. Cardio: Regular rate rhythm, normal S1-S2, no murmurs rubs gallops, Respiratory: Good bilateral air entry, no wheezes no rhonchi appreciated. Chest tube insertion site looks clean with Band-Aid. GI: Abdomen soft, nontender, nondistended, bowel sounds + Behavior: Appropriate and cooperative Extremities: no edema, no cyanosis Data : 04/21/21 05:15 04/21/21 05:15 Micro: Microbiology 04/20/21 16:51 Gram Stain - Final Pleural Fluid Body Fluid Culture - Preliminary A&P Assessment and plan (1) Pleural effusion: Status: Acute (2) Congestive heart failure: Status: Acute Qualifiers: Heart failure chronicity: unspecified Heart failure type: unspecified Qualified Code(s): I50.9 - Heart failure, unspecified (3) Diabetes mellitus: Status: Acute Qualifiers: Diabetes mellitus type: type 2 Diabetes mellitus long term acute care registered nurse insulin use: unspecified snf insulin use status Diabetes mellitus complication status: with kidney complications Diabetes mellitus complication detail: with chronic kidney disease Chronic kidney disease stage: unspecified stage Qualified Code(s): E11.22 - Type 2 diabetes mellitus with diabetic chronic kidney disease Additional A&P Information CHF exacerbation Chronic congestive diastolic heart failure with systolic heart failure, EF 45%. DM Right Pleural Effusion -resolved Small pneumothorax status post chest tube Presented with with chest pain and pleural effusion EKg without acute ST-T wave changes, trop series without significant delta Last admission w/up for pleural effusion revaled transudative effusion No malignancy on pathology, acute inflammation noted Patient is status post chest tube placement and removal 2200 cc fluid removed. Fluid sent for cytology and culture. Chest tube was removed. We will repeat x-ray today. Patient can be discharged from pulmonary standpoint. Echo report showed EF of 45% with diastolic dysfunction. He has not been evaluated for ischemic versus nonischemic cardiomyopathy. Cardiology was consulted. He will be going for stress test tomorrow morning. N.p.o. at midnight. We will hold beta-valdez for today. Previous admission: Thoracentesis last admission revealed transudative fluid. CT chest: Continued atelectasis of the right lower lobe and prominence of the right hilum. With these findings and no significant interval change the possibility of bronchial obstruction should be considered. Without intravenous contrast further characterization cannot be made. Bronchoscopy possibly indicated as clinically warranted. Blood cultures, MRSA PCR, bacterial antigens, Legionella antigen all negative to date so far. Banken Zosyn has been discontinued at this point. Hypokalemia: 3.3 today. Will replete. Fluids: Fluid restriction 1500 cc Electrolytes: Replete as needed Nutrition: Cardiac diet, n.p.o. at midnight Activity: As tolerated DVT prophylaxis: Heparin 5000 subcu every 8 hours. Attestations Medical Necessity Statement*: He will go for cardiac stress test in the morning. Anticipate another 24 hours of stay at this point. 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
--- NOTE | 2021-04-22 12:53 | XRR_ITS ---
PROCEDURE INFORMATION: Exam: XR Chest Exam date and time: 04/22/2021 12:53 PM Age: 75 years old Clinical indication: Screening exam; Other screening; Patient HX: Chest tube removal; Additional info: Follow up TECHNIQUE: Imaging protocol: XR of the chest. Views: 1 view. COMPARISON: CR XR chest 1V portable [id number] 04/22/2021 6:34 AM FINDINGS: Lungs: Continued decrease in the opacification left lower lobe, nearly resolved. Persistent streaky opacification at the right lung base. Pleural spaces: Interval removal of the chest tube along the right lower chest wall. No pleural effusion. No pneumothorax. Heart/Mediastinum: Unremarkable. No cardiomegaly. Bones/joints: Unremarkable. XR/XR chest 1V portable [id number] IMPRESSION: 1. Interval removal of the right chest tube. No evidence of recurrent pleural effusion/pneumothorax. 2. Continued decrease in the opacity within the left lower lobe which is now nearly resolved. 3. Persistent streaky opacities at the right lung base, most likely secondary to atelectasis. Radiation Dose CTDIVOL = (mGy): DLP = (mGy-cm)
[2021-04-22] MEDS: potassium chloride oral liq 20 mEq/15 mL UDC 40 MEQ PO (13:43)
[2021-04-22] MEDS: atorvastatin 40 mg Tablet PO (18:06)
--- NOTE | 2021-04-22 18:07 | PM.PN ---
Subjective Subjective: Interval history: -Patient seen today morning -14 [place]ian pigtail placed for hydropneumothorax-clamped after draining 2200 cc post insertion 04/20/2021-small apical pneumothorax that existed prior to insertion resolved-pigtail removed today -Patient to be evaluated by cardiology for risk because of heart failure -Labs and imaging reviewed Medications: Reviewed: Yes Vitals/I&O/Wt Last Vital Signs Temp 98.3 F 04/22/21 16:00 Pulse 88 04/22/21 16:00 Resp 17 04/22/21 16:00 BP 130/74 04/22/21 16:00 Pulse Ox 94 04/22/21 16:00 04/22/21 04/22/21 04/22/21 06:59 14:59 22:59 Intake Total 720 / 1850 400 / 400 Output Total 300 / 2575 250 / 250 150 / 400 Balance 420 / -725 -250 / -250 250 / 0 Physical Exam Narrative: EXAM NARRATIVE: General: alert, NAD HEENT: conj clear, EOMI, PERRL, mmm, Neck: supple, no meningismus Heme: no cervical LAP Pulmonary: Improved breath sounds on right lower lung Cardiovascular: rrr, nl s1s2, no mrg Abdomen: soft, nt, nd, no r/g, bs+ Extremities: pulses +, no edema, no c/c : no CVA tenderness Skin: intact, no rash MSK: no back or neck pain Neurologic: grossly intact Data : 04/21/21 05:15 04/23/21 05:05 Other Labs: Laboratory Results WBC 12.0 10^3/uL (4.0-10.0) H 04/21/21 05:15 RBC 4.90 10^6/uL (4.1-5.3) 04/21/21 05:15 Hgb 14.1 g/dL (11.7-16.6) 04/21/21 05:15 Hct 44.0 % (42.0-52.0) 04/21/21 05:15 MCV 89.8 fl (80-94) 04/21/21 05:15 MCH 28.8 pg (28.0-34.0) 04/21/21 05:15 MCHC 32.0 g/dL (30.0-36.0) 04/21/21 05:15 RDW 15.0 % (12.1-15.1) 04/21/21 05:15 Plt Count 198 10^3/cmm (130-400) 04/21/21 05:15 MPV 9.8 fL (7.4-10.4) 04/21/21 05:15 Neut % (Auto) 58.2 % 04/21/21 05:15 Lymph % (Auto) 29.4 % 04/21/21 05:15 [place] % (Auto) 9.5 % 04/21/21 05:15 Eos % (Auto) 2.3 % 04/21/21 05:15 Baso % (Auto) 0.4 % 04/21/21 05:15 Neut # (Auto) 6.99 10^3/uL (1.8-7.7) 04/21/21 05:15 Lymph # (Auto) 3.5 10^3/uL (0.8-4.8) 04/21/21 05:15 [place] # (Auto) 1.1 10^3/uL (0.2-0.9) H 04/21/21 05:15 Eos # (Auto) 0.3 10^3/uL (0.0-0.8) 04/21/21 05:15 Baso # (Auto) 0.1 10^3/uL (0.0-0.1) 04/21/21 05:15 Nucleated RBC % (auto) 0 % 04/21/21 05:15 Nucleated RBCs # 0.0 /100WBC 04/21/21 05:15 Differential Comment Yes 04/20/21 16:51 Sodium 134 mmol/L (136-145) L 04/23/21 05:05 Potassium 3.3 mmol/L (3.5-5.1) L 04/23/21 05:05 Chloride 93 mmol/L (98-107) L 04/23/21 05:05 Carbon Dioxide 29 mmol/L (22-29) 04/23/21 05:05 Anion Gap 15.3 (5-19) 04/23/21 05:05 BUN 35 mg/dL (8-23) H 04/23/21 05:05 Creatinine 2.4 mg/dL (0.7-1.2) H 04/23/21 05:05 GFR Calculation Not Reportable 04/23/21 05:05 Glucose 128 mg/dL (65-115) H 04/23/21 05:05 Calculated Osmolality 288 mOsm/kg (285-295) 04/23/21 05:05 Calcium 8.6 mg/dL (8.5-10.5) 04/23/21 05:05 Magnesium 1.9 mg/dL (1.7-2.3) 04/23/21 05:05 Iron 31 ug/dL (59-158) L 04/18/21 15:36 TIBC 300 mcg/dl 04/18/21 15:36 % Saturation 10.3 % (20-50) L 04/18/21 15:36 Unsat Iron Binding 269 ug/dL (112-347) 04/18/21 15:36 Total Bilirubin 1.2 mg/dL (0.15-1.2) 04/19/21 04:51 AST 11 U/L (0-40) 04/19/21 04:51 ALT 9 U/L (0-41) 04/19/21 04:51 Alkaline Phosphatase 52 IU/L (40-130) 04/19/21 04:51 Troponin T Baseline 33 ng/L (0-15) H 04/18/21 15:36 Troponin T 120 Minute 30.47 ng/L (0-15) H 04/18/21 17:33 Delta Troponin T -2.53 ABS# (0-10) L 04/18/21 17:33 Troponin T Hi Sens 6Hr 38.96 ng/L (0-15) H 04/18/21 21:20 Troponin T Hi Sens 6Hr Delta 5.96 ng/L (0-12) 04/18/21 21:20 NT-Pro-B Natriuret Pep 5644 pg/mL (0-450) H 04/18/21 15:36 Total Protein 5.3 g/dL (6.6-8.7) L D 04/19/21 04:51 Albumin 3.0 g/dL (3.5-5.2) L 04/19/21 04:51 Globulin 2.3 g/dL (1.3-4.6) 04/19/21 04:51 Lipase 35 U/L (13-60) 04/18/21 15:36 Procalcitonin 0.26 ng/mL (0-0.5) 04/19/21 04:51 TSH 2.04 uIU/mL (0.27-4.20) 04/18/21 15:36 Urine Color Yellow (Yellow) 04/18/21 17:53 Urine Appearance Clear (CLEAR) 04/18/21 17:53 Urine pH 7 (5-7) 04/18/21 17:53 Ur Specific [place] 1.005 (1.005-1.030) 04/18/21 17:53 Urine Protein 2+ (Negative) H 04/18/21 17:53 Urine Glucose (UA) Trace (Normal) H 04/18/21 17:53 Urine Ketones Negative (Negative) 04/18/21 17:53 Urine Blood Neg (Negative) 04/18/21 17:53 Urine Nitrate Negative (Negative) 04/18/21 17:53 Urine Bilirubin Neg (Negative) 04/18/21 17:53 Urine Urobilinogen Norm mg/dL (Negative) 04/18/21 17:53 Ur Leukocyte Esterase Negative (Negative) 04/18/21 17:53 Urine RBC 0-4 /hpf (0-2) H 04/18/21 17:53 Urine WBC 0-4 /hpf (0-5) H 04/18/21 17:53 Ur Squamous Epith Cells 0-4 /hpf (0-5) H 04/18/21 17:53 Amorphous Sediment Not Reportable 04/18/21 17:53 Urine Bacteria Trace /hpf (NONE) 04/18/21 17:53 Fluid Color Yellow 04/20/21 16:51 Fluid Appearance Cloudy 04/20/21 16:51 Fluid Specific Grav 1.005 04/20/21 16:51 Fluid pH 8.0 04/20/21 16:51 Fluid WBC 2064 /uL 04/20/21 16:51 Fluid RBC 1.000 10^3/uL 04/20/21 16:51 Fld Polynuclear WBCs # 1.459 04/20/21 16:51 Fld Polynuclear WBCs % 70.700 % 04/20/21 16:51 Fl Mononucl WBCs #(Auto) 0.605 04/20/21 16:51 Fl Mononuclear % Auto 29.300 % 04/20/21 16:51 Fluid Glucose 141.0 mg/dL 04/20/21 16:51 Fluid Albumin 1.9 g/dL 04/20/21 16:51 Fluid LDH 201 U/L 04/20/21 16:51 Fluid Amylase 42 U/L 04/20/21 16:51 Fluid Alk Phosphatase 17 IU/L 04/20/21 16:51 Fluid Cholesterol 30 mg/dL (0-200) 04/20/21 16:51 Fluid Triglycerides 29 mg/dL (0-150) 04/20/21 16:51 Fluid Uric Acid 6 mg/dL 04/20/21 16:51 Pleural Total Protein 2.6 g/dL 04/20/21 16:51 Vancomycin Trough 15.9 ug/mL (10-15) H 04/20/21 18:[address] 04/19/21 07:00 IMPRESSION: Continued atelectasis of the right lower lobe and prominence of the right hilum. With these findings and no significant interval change the possibility of bronchial obstruction should be considered. Without intravenous contrast further characterization cannot be made. Bronchoscopy possibly indicated as clinically warranted. Chest X-Ray 04/23/21 10:28 IMPRESSION: 1. Persistent but improved small bilateral pleural effusions. 2. RIGHT lower lobe pneumonitis and/or atelectasis. Micro: Microbiology 04/20/21 16:51 Gram Stain - Final Pleural Fluid Anaerobic Culture - Preliminary Body Fluid Culture - Preliminary A&P Assessment and plan (1) Hydropneumothorax: Status: Acute (2) Congestive heart failure: Status: Acute Qualifiers: Heart failure chronicity: unspecified Heart failure type: unspecified Qualified Code(s): I50.9 - Heart failure, unspecified (3) Tobacco abuse: Status: Acute (4) Pleural effusion: Status: Acute (5) Acute kidney injury: Status: Acute (6) Hypertension: Status: Acute Qualifiers: Hypertension type: unspecified Qualified Code(s): I10 - Essential (primary) hypertension #Right hydropneumothorax in patient with underlying diastolic heart failure # STEVEN on CKD in pt with BPH/DM/CHF # H/o COPD in chronic smoker -s/p right side thoracentesis 1000 cc during last admission 03/22/21 -Analysis showed trasudative fluid consistent with CHF; BNP 5544 -ECHO 03/22/21: Reported Possibly normal LV size and ejection fraction. Techinically difficult and limited study; - However pt has history of Afib with HR controlled; was told to take water pill at outside hospital - Also has all the risk factors for Ischemic cardiomyopathy; he was supposed to follow up with cardiology post discharge but he did not And Discharged with Lasix 40 mg daily - This admission BNP is again > 5000; complaining dyspnea on exertion and imaging showed recurring right pleural effusion with atelectasis of right lower lobe. Also reported possible bronchial obstruction.Small apical pneumothorax can be from previuos thoracentesis - likely trapped lung although less likely it is seen at apex. Given the clinical context; fluid is secondary to CHF and recommended aggressive diuresis; -However as pt is symptomatic and has dysnea on ambulation - placed a pigtail & drained 2200 cc Trasudative fluid and left under waterseal for pneumothorax. Clamped the tube for 3 shifts and chest x-ray showed resolving pneumothorax-removed pigtail today -4 hours post removal-no recurrence of pneumothorax -repeat Echo and may need cardiology evaluation for ischemic vs non ischemic cardiac failure sooner than later in this non compliant patient. - Given smoking history - need PFTs as outpt for COPD and adjustment of inhalers. Continue q 6 hr prn nebulizations. Discharge with Spriva 2 puffs daily and will follow up in pulmonary clinic. - procal is 0.26; clinically does not seem have infection, however blood cultures; MRSA nares, bacterial antigens, legionella antigen are negative. rest of the comorbidities managed as per the patient Medical condition and management plan updated to the patient and he verbalized understanding and agreed to plan. Recommendations conveyed to hospitalist and RN taking Care of the patient Attestations Medical Necessity Statement*: Deferred to hospitalist Time Spent in Patient Care: 16 - 35 minutes (>than 50% of time spent in counselling and/or direct pt care on unit). 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
[2021-04-22] MEDS: hydroCHLOROthiazide 25 mg Tablet 12.5 MG PO (18:14)
[2021-04-22] MEDS: lisinopril 20 mg Tablet PO (18:15)
[2021-04-22] MEDS: doxazosin 4 mg Tablet 2 MG PO (21:12)
[2021-04-23] VITALS: BP 103/66; PULSE 85; RESP 19; TEMP 36.8; O2SAT 91
[2021-04-23] MEDS: heparin 5,000 unit/mL INJ 1 mL 5000 UNIT SUBCUT ×2 (00:21→10:11)
[2021-04-23 04:00] VITALS: BP 106/73; PULSE 108; RESP 18; TEMP 36.6; O2SAT 97
[2021-04-23 06:10] LABS: Anion Gap 15.3 (5-19); Blood Urea Nitrogen 35 mg/dL (8-23); Calcium 8.6 mg/dL (8.5-10.5); Carbon Dioxide 29 mmol/L (22-29); Chloride 93 mmol/L (98-107); Glucose 128 mg/dL (65-115); Magnesium 1.9 mg/dL (1.7-2.3); Osmolality Calculated 288 mOsm/kg (285-295); Potassium 3.3 mmol/L (3.5-5.1); Sodium 134 mmol/L (136-145)
--- NOTE | 2021-04-23 07:00 | ECG_ITS ---
[facility] Test Date: 2021-04-23 Pat Name: Ole Maldonado Department: Room: 277 Gender: Male Sports Media: Adenike Byrne : 1945 Requested By: Sarah Joyner Order Number: [id number] Leela MD: Joaquin Womack M.D. Interpretive Statements NAME OF STUDY: LEXISCAN SESTAMIBI STRESS TEST INDICATION: [Chest Pain, ] Procedure: At the baseline, the blood pressure was 118/74 mmHg with a heart rate of 68 bpm. The electrocardiogram showed atrial fibrillation, normal axis with normal ST and T's. The Lexiscan was infused over a period of 20 seconds. A total of 0.4 mg of Lexiscan was infused. The stress phase was continued for a total of 5 minutes. Heart rate was at the end of stress phase was 124 bpm and a blood pressure of 101/71 mmHg. The EKG at the peak infusion revealed atrial fibrillation with no significant ST-T wave changes. After regadenosine injection, patient became bradycardic and unresponsive for a few seconds. He quickly recovered and was back to baseline. No arrthythmias were noted. Aminophylline was administered. Sestamibi was injected 20 seconds after the Lexiscan infusion. Blood pressure at the end of recovery phase was 120/67 mmHg with a heart rate of 98 bpm. Conclusion: 1. Normal EKG response to Lexiscan infusion 2. No Lexiscan induced chest pain or cardiac arrhythmia. 3. Normal blood pressure and heart rate response. 4. Sestamibi/sestamibi perfusion scan pending; see separate report. Electronically Signed On 05-17-2021 10:49:39 TOLL MECHANIC by Joaquin Womack M.D. [id number]
[2021-04-23 07:05] VITALS: BP 110/74; PULSE 102; RESP 16; TEMP 36.6; O2SAT 95
[2021-04-23 08:26] VITALS: BP 121/71; PULSE 95
[2021-04-23] MEDS: regadenoson 0.4 Mg/5 ml Syringe IVP (08:26)
[2021-04-23] MEDS: aminophylline 25 mg/mL SDV 10 mL IVP (08:31)
[2021-04-23] MEDS: doxazosin 4 mg Tablet 2 MG PO (10:10)
[2021-04-23] MEDS: sennosides-docusate Tablet 2 TAB PO (10:10)
[2021-04-23] MEDS: aspirin 81 mg Chew Tablet PO (10:10)
[2021-04-23] MEDS: hydroCHLOROthiazide 25 mg Tablet 12.5 MG PO (10:11)
--- NOTE | 2021-04-23 10:22 | PM.PN ---
Subjective Subjective: Interval history: Patient is doing well. He had Lexiscan done which is negative for ischemia. He had vasovagal reaction during the stress test. Vitals/I&O/Wt Last Vital Signs Temp 97.8 F 04/23/21 07:05 Pulse 95 04/23/21 08:26 Resp 16 04/23/21 07:05 BP 121/71 04/23/21 08:26 Pulse Ox 95 04/23/21 07:05 04/22/21 04/23/21 04/23/21 22:59 06:59 14:59 Intake Total 640 / 640 Output Total 150 / 400 470 / 870 Balance 490 / 240 -470 / -230 Physical Exam Narrative: EXAM NARRATIVE: GENERAL: Patient is alert, awake and oriented x3. [] NECK: No jugular vein distension. [] HEENT: No cyanosis. No icterus. No pallor. [] HEART: Regular S1 and S2. No murmur, rub or gallop. [] LUNGS: Diminished sounds bilaterally ABDOMEN: Soft, nontender and nondistended. Positive bowel sounds. No guarding, rebound or tenderness. [] CENTRAL NERVOUS SYSTEM: Grossly nonfocal. [] EXTREMITIES: Lower extremities with 1+ edema bilaterally. Pulses palpable in the lower extremities, both dorsalis pedis and posterior tibial. [] Data : 04/21/21 05:15 04/23/21 05:05 Micro: Microbiology 04/20/21 16:51 Gram Stain - Final Pleural Fluid Anaerobic Culture - Preliminary Body Fluid Culture - Preliminary A&P Assessment and plan (1) Hypertension: Status: Acute Qualifiers: Hypertension type: unspecified Qualified Code(s): I10 - Essential (primary) hypertension (2) Tobacco abuse: Status: Acute (3) Congestive heart failure: Status: Acute Qualifiers: Heart failure chronicity: unspecified Heart failure type: unspecified Qualified Code(s): I50.9 - Heart failure, unspecified (4) Pleural effusion: Status: Acute (5) Diabetes mellitus: Status: Acute Qualifiers: Diabetes mellitus type: type 2 Diabetes mellitus adjunct faculty for medical terminology insulin use: unspecified alf insulin use status Diabetes mellitus complication status: with kidney complications Diabetes mellitus complication detail: with chronic kidney disease Chronic kidney disease stage: unspecified stage Qualified Code(s): E11.22 - Type 2 diabetes mellitus with diabetic chronic kidney disease Patient's respiratory status has improved significantly since admission. Switch to PO lasix. Strict I&O monitoring. Lexiscan done that does not demonstrate ischemia. Patient became bradycardic during the procedure. Monitor renal function. Thank you for involving us with care of this patient. Patient is stable to be discharged from cardiology standpoint. Please call with questions. Attestations Medical Necessity Statement*: Care expected to cross 2 midnights. 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
[2021-04-23] MEDS: ferrous gluconate 324 mg Tablet PO (10:23)
--- NOTE | 2021-04-23 10:28 | XR_ITS ---
WS: [id number] PORTABLE CHEST HISTORY: cough COMPARISON: 04/22/2021 Mild haziness at the RIGHT lung base consistent with an area of pneumonitis or atelectasis. Continued small bilateral pleural effusions which have significantly improved since the prior examination of 1 . No pneumothorax. Cardiac size: Mildly enlarged cardiac silhouette. Mediastinum/Aorta: Mild atherosclerosis aorta. No osseous abnormality seen. XR/XR chest 1V portable [id number] IMPRESSION: 1. Persistent but improved small bilateral pleural effusions. 2. RIGHT lower lobe pneumonitis and/or atelectasis.
[2021-04-23] MEDS: potassium chloride oral liq 20 mEq/15 mL UDC 40 MEQ PO (10:42)
[2021-04-23 11:18] VITALS: BP 118/61; PULSE 69; RESP 16; O2SAT 94
--- NOTE | 2021-04-23 12:44 | NMCV_ITS ---
NM santhosh perf SPECT r/s* [id number] Ole Maldonado Age: 75 Gender: M : 1945 Exam Date: 04/23/2021 07:32 Ordering Phys: Sarah Joyner MD Technologist: JO-ANN Lawson Exam Location: [facility] Indications: CHEST PAIN AND BACK PAIN STRESS TEST Please see separate stress test report in [facility] for full findings IMAGE PROTOCOL Rest/Stress 1 Lexiscan Day Radiopharmaceutical Dose (mCi) Administration Site Administered by Rest: Tc-99m 10.9 IV JO-ANN Dubose Sestamibi Stress:Tc-99m 32.8 IV JO-ANN Dubose Sestamibi Rest: 23-Apr-2021 60 Discovery 630 Stress: 23-Apr-2021 30 Discovery 630 0.4mg Lexiscan. Supine position only as patient was unable to lay prone. SPECT RESULTS Technical Quality: Excellent Raw Data Analysis: Normal Image Corrections: No attenuation or motion correction applied Summed Stress Score: 3 Summed Rest Score: 6 Summed Difference Score: 0 PERFUSION FINDINGS There is persistently decreased radiotracer uptake in the inferior wall which slightly improves on stress. This is consistent with attenuation artifact. No evidence of ischemia FUNCTIONAL RESULTS (calculated via Gated SPECT) Stress Image LV EF (%): 53 Stress EDV (mL):101 TID: 0.95 Stress ESV (mL):47 FUNCTIONAL FINDINGS: There is normal left ventricular systolic function. IMPRESSIONS 1. No evidence of ischemia is noted. Attenuation artifact in the inferior wall seen. 2. LV systolic function is normal. Joaquin Womack MD (Electronically Signed) Final Date: 23 April 2021 10:53 S
--- NOTE | 2021-04-23 13:21 | PC.NURSE ---
Verbal orders given by Dr. Joyner to hold pt's lisinopril and IVP lasix due to hypotension during stress test. Pt's blood pressure upon arrival back to room 119/62, heart rate 75. Pt denies and symptoms.
--- NOTE | 2021-04-23 14:10 | P.DS_ITS ---
Discharge Providers Date of Admission: 04/19/21 18:03 Date of Discharge: April 23, 2021 Attending Provider at Admission: Juno Durham MD Attending Provider at Discharge: Sarah Joyner MD Primary Care Provider: Cristine Raza Diagnoses at Discharge Discharge Diagnosis (1) Hypertension: Status: Acute Qualifiers: Hypertension type: unspecified Qualified Code(s): I10 - Essential (primary) hypertension (2) Tobacco abuse: Status: Acute (3) Congestive heart failure: Status: Acute Qualifiers: Heart failure chronicity: unspecified Heart failure type: unspecified Qualified Code(s): I50.9 - Heart failure, unspecified (4) Pleural effusion: Status: Acute (5) Diabetes mellitus: Status: Acute Qualifiers: Chronic kidney disease stage: unspecified stage Diabetes mellitus complication detail: with chronic kidney disease Diabetes mellitus complication status: with kidney complications Diabetes mellitus care home insulin use: unspecified lobsterman insulin use status Diabetes mellitus type: type 2 Qualified Code(s): E11.22 - Type 2 diabetes mellitus with diabetic chronic kidney disease Reason for Visit Reason for Visit: CP & BACK PAIN SINCE THIS AM Hospital Course Hospital Course Ole Maldonado is a 75 year old male with PMH HTN, BPH admitted 03/21 to 03/26 with significant dyspnea on exertion, orthopnea, with lower extremity edema. Hospital course significant for acute congestive heart failure, with fluid overload as well as bilateral pleural effusions, larger on initial imaging, right greater than left, noted possible mild exacerbation of COPD. He was treated with IV diuresis with Lasix, additionally underwent thoracentesis of right pleural effusion on 03/23. He diuresed well, with resolution of lower extremity edema and most symptoms of dyspnea. As well as significant improvement in left-sided pleural effusion to the point that there was not enough fluid to attempt thoracentesis on the left side. Fluid from the right side was found transudate of on analysis. hospital stay was complicated by episodes of nausea, vomiting, abdominal discomfort, poor oral intake with finding of small bowel obstruction on CT abdomen pelvis with transition point in right mid abdomen without signs of ischemic changes. Managed conservatively. He declined to stay in the hospital for any additional assessment or treatment and requested to be discharged home the same evening.It was recommended he follow up for stress test and holter testing. Presented to the ER today with chest pain and shortness of breath. Ekg showed A fib with HR 80. Trop mildly elevated, 2 hr delta negative, 6 hr delta at 5. Cxr today with increased right lung base with loss of air bronchograms, suspicious for malignancy. cr today improved over last admission Hospital course: Patient presented with chest pain and pleural effusion. Last admission work-up revealed transudative effusion. No malignancy on pathology. Patient was seen by pulmonology and chest tube was placed and 2200 cc of fluid was removed. Fluid was sent for cytology and culture. Results are pending. Chest tube was removed after 2 days. Fluid most likely transudative. Echo was performed which showed EF of 45% with diastolic dysfunction. To evaluate for ischemic cardiomyopathy he was sent for a stress test. During stress test he did have a vasovagal type of response and became bradycardic but there were no arrhythmias seen on EKG as per discussion with the tube knitter. Stress test was negative for ischemia. At this point it seems like his pleural effusions are due to his diastolic heart failure. He will be discharged on diuretic regimen for which he will need to take Lasix every day instead of as needed like he previously was. I would also add potassium tablet for him. He will need follow-up with pulmonology and cardiology as an outpatient. Patient was also seen by cardiology today and updated with the plan. Both his sons were in the room when I saw the patient this morning and explained to them what was going on. Patient also had a questionable right lower lobe pneumonia and received Vanco and Zosyn for 2 days at which point they were discontinued as bacterial antigens and MRSA nares was negative. He did have yellowish sputum production. I have discharged him on Augmentin 875 for another 7 days. I also ordered a follow-up x-ray for him and a BMP as an outpatient. Physical Exam Narrative: EXAM NARRATIVE: General: Alert oriented x3, patient seen and examined this morning. Patient sitting in bed with family at bedside. HEENT: Normocephalic, atraumatic, EOMI, breathing room air. Cardio: Regular rate rhythm, normal S1-S2, no murmurs rubs gallops, Respiratory: Good bilateral air entry, no wheezes no rhonchi appreciated. Very mild crackles at right base. Chest tube insertion site looks clean with Band- Aid. GI: Abdomen soft, nontender, nondistended, bowel sounds + Behavior: Appropriate and cooperative Extremities: no edema, no cyanosis Discharge Data Data Completed and Pending: Completed Studies During Hospitalization Category Date Time Status CT chest wo con 7 1250 Routine Cat Scan 04/19/21 07:00 Completed Sestamibi Stress Test Request Routi ne Exams 04/23/21 07:00 Draft XR chest 1V deborah ble [id number] Routine Exams 04/20/21 23:00 Completed XR chest 1V deborah ble [id number] Routine Exams 04/21/21 07:11 Completed XR chest 1V deborah ble [id number] Routine Exams 04/22/21 06:00 Completed XR chest 1V deborah ble [id number] Routine Exams 04/22/21 12:53 Completed XR chest 1V deborah ble [id number] Routine Exams 04/23/21 10:28 Completed XR chest 1V deborah ble [id number] Stat Exams 04/18/21 15:09 Completed XR chest 1V deborah ble [id number] Stat Exams 04/20/21 16:47 Completed XR chest 1V deborah ble [id number] Stat Exams 04/21/21 16:35 Completed XR chest 1V deborah ble [id number] Urgent Exams 04/20/21 08:11 Completed NM santhosh perf SPECT r/s* [id number] Routin e Nuc Med 04/23/21 12:44 Completed CV. echo complete * [id number] Routine Ultrasound 04/21/21 07:51 Completed Pending at discharge Category Date Time Status Sestamibi Stress Test Request Emilyi ne Exams 04/22/21 12:44 Stop Req Anaerobic Culture Routine Lab 04/20/21 16:51 Results Blood Culture Sta t Lab 04/18/21 21:25 Results Body Fluid Cultur e & GS Routine Lab 04/20/21 16:51 Results Sputum Culture Ro utine Lab 04/23/21 10:29 Uncollected Cytology [PTH] Ro utine Pth 04/20/21 17:23 Received Labs from last 24 hours 04/23/21 05:05 Sodium 134 L Potassium 3.3 L Chloride 93 L Carbon Dioxide 29 Anion Gap 15.3 BUN 35 H Creatinine 2.4 H GFR Calculation Not Reportable Glucose 128 H Calculated Osmolal ity 288 Calcium 8.6 Magnesium 1.9 Vitals: Last Vital Signs Temp 97.8 F 04/23/21 07:05 Pulse 69 04/23/21 11:18 Resp 16 04/23/21 11:18 BP 118/61 04/23/21 11:18 Pulse Ox 94 04/23/21 11:18 Discharge Plan Discharge Patient Disposition: Home Condition: Stable Prescriptions: New Augmentin 875-125 mg tablet 1 tab PO BID 7 Days Qty: 14 RF: 0 potassium chloride 10 mEq tablet extended release 10 meq PO DAILY 30 Days Qty: 30 RF: 0 Continued metformin 500 mg Tablet 500 mg PO BID RF: 0 Hold Instructions: Resume on 04/01/21. lisinopril-hydrochlorothiazide 20-12.5 mg Tablet 1 tab PO BID RF: 0 Hold Instructions: Resume on 04/01/21. amlodipine 10 mg Tablet 10 mg PO DAILY RF: 0 metoprolol tartrate 50 mg Tablet 50 mg PO BID RF: 0 aspirin 81 mg Tablet,Chewable 81 mg PO DAILY RF: 0 doxazosin 2 mg tablet 2 mg PO BEDTIME RF: 0 atorvastatin [Lipitor] 40 mg tablet 40 mg PO QPM Qty: 30 RF: 0 Changed Lasix 40 mg tablet 40 mg PO BID 30 Days Qty: 60 RF: 0 Discontinued hydralazine 25 mg Tablet 25 mg PO TID RF: 0 Discharge Orders: Discharge Order (Routine); Ordered 04/23/21 Ordered By: Sarah Joyner Other Ambulatory Orders: Basic Metabolic Panel (Routine) Timeframe: 1 Week Facility: [facility] - Location: Lab - Main Lab Ordered By: Sarah Joyner XR chest 1V portable [id number] (Routine) Timeframe: 2 Weeks Facility: [facility] - Location: Radiology [facility] Ordered By: Sarah Joyner Referrals: Gerald Wong MD [Physician] - 2 weeks (Please call to make an appointment to be seen by Dr. Wong in two weeks for pneumothorax.) Joaquin Womack M.D [Physician] - 1 month (Please call to make an appointment to be seen in one week.) Tiffani Forrester FNP [Nurse Practitioner] - 1 week (Please call to make an appointment to be seen in one week.) Cristine Raza [Primary Care Provider] - 04/26/21 12:00 pm Discharge Diet: Cardiac and Low Salt Discharge Activity: Resume usual activity Patient Instructions: Potassium Chloride (By mouth) (K-Dur, K-Clair, K-Tab, Arsen Mur), Amoxicillin/Clavulanate Potassium (By mouth) (Augmentin, Augmentin..., Acute Kidney Injury (DC), Hypertension (DC), Chest Pain Stoplight, Opioid Safety Discharge Attestations Time Spent in Discharge Care*: greater than 30 min Quality Metrics Clinical Quality Measures During this hospital stay, did patient experience: None Coding Level of Care Code Acute Chg FW DC note Diagnoses Hypertension I10 Hypertension type: unspecified Tobacco abuse Z72.0 Congestive heart failure I50.9 Heart failure chronicity: unspecified Heart failure type: unspecified Pleural effusion J90 Diabetes mellitus E11.22 Chronic kidney disease stage: unspecified stage Diabetes mellitus complication detail: with chronic kidney disease Diabetes mellitus complication status: with kidney complications Diabetes mellitus care home insulin use: unspecified lobsterman insulin use status Diabetes mellitus type: type 2
--- NOTE | 2021-04-23 15:12 | PC.RESP ---
SMOKING CESSATION INFORMATION SENT TO PATIENT.
[2021-04-23 15:24] VITALS: BP 144/71; PULSE 96; RESP 16; TEMP 36.6; O2SAT 96
== END 2021-04-23 16:17 | disposition home or self-care (01) | DRG 291 ==
LOC: ER 16:32 → MEDSURG 18:33
PROVIDERS: Emergency Medicine; Internal Medicine Pulmonary Disease; Admitting Provider Student in an Organized Health Care Education/Training Program; Emergency Provider Emergency Medicine; PCP Nurse Practitioner Family; Visit Provider Internal Medicine
DX: I13.0 Hypertensive heart and chronic kidney disease with heart failure and stage 1 through stage 4 chronic kidney disease, or unspecified chronic kidney disease (principal); I50.43 Acute on chronic combined systolic (congestive) and diastolic (congestive) heart failure; J94.8 Other specified pleural conditions; N17.9 Acute kidney failure, unspecified; J98.11 Atelectasis; E11.22 Type 2 diabetes mellitus with diabetic chronic kidney disease; N18.9 Chronic kidney disease, unspecified; J44.9 Chronic obstructive pulmonary disease, unspecified; E87.6 Hypokalemia; N40.0 Benign prostatic hyperplasia without lower urinary tract symptoms; I48.91 Unspecified atrial fibrillation; F17.200 Nicotine dependence, unspecified, uncomplicated; R91.8 Other nonspecific abnormal finding of lung field; Z79.84 Long term (current) use of oral hypoglycemic drugs
CPT/HCPCS: 36415; 71045; 71250; 78452; 80048; 80053; 80202; 80500; 81001; 82042; 82150; 82465; 82945; 83540; 83550; 83615; 83690; 83735; 83880; 83986; 84075; 84145; 84157; 84315; 84443; 84478; 84484; 84560; 85025; 86403; 87040; 87070; 87075; 87205; 87449; 87641; 88305; 89050; 93005; 93017; 93306; 94640; 96372; 99285; A9500; G0378; J0280; J1170; J1644; J1940; J2543; J2785; J3370; J3475; J7626

== ENCOUNTER 2021-05-24 12:59 | Outpatient (CLI) | payer MEDICARE, SELFPAY ==
--- NOTE | 2021-05-24 13:00 | US_ITS ---
WS: [id number] ULTRASOUND RENAL TECHNIQUE: Ultrasound examination of both kidneys. CLINICAL INFORMATION: CHRONIC KIDNEY DZ STAGE 4 COMPARISON: CT March 23, 2021 FINDINGS: RIGHT: Simple right renal pelvic cyst measuring 1.8 x 2.1 x 1.5 cm. Small right cortical cyst measuri ng 1.1 x 0.9 cm. Right kidney is normal in size and appearance. Echogenicity: Normal. Cortical thickness: cm; Normal. Hydronephrosis: None. Perinephric fluid: None. Right kidney measures: 10.9 cm x 5.0 cm x 5.0 cm. LEFT: Left kidney is normal in size and appearance. Echogenicity: Normal. Cortical thickness: 1.1 cm; Normal. Hydronephrosis: None. Perinephric fluid: None. Left kidney measures: 8.4 cm x 3.8 cm x 4.5 cm. Normal visualized aorta. Enlarged nodular prostate measuring 3.6 x 3.4 x 4.5 cm. Normal bladder. US/US renal BI* [id number] IMPRESSION: 1. No hydronephrosis in either kidney. 2. Simple right renal pelvic cyst measuring 1.8 x 2.1 x 1.5 cm. Small right co rtical cyst measuring 1.1 x 0.9 cm 3. Enlarged nodular prostate. Recommend correlation PSA.
== END 2021-05-24 13:00 | disposition home or self-care (01) ==
PROVIDERS: PCP Nurse Practitioner Family; Visit Provider Internal Medicine
DX: N18.4 Chronic kidney disease, stage 4 (severe) (principal); N28.1 Cyst of kidney, acquired; N40.0 Benign prostatic hyperplasia without lower urinary tract symptoms
CPT/HCPCS: 76770

== ENCOUNTER 2021-08-05 12:07 | Outpatient (CLI) | payer MEDICARE, SELFPAY ==
--- NOTE | 2021-08-05 12:23 | XRR_ITS ---
PROCEDURE INFORMATION: Exam: XR Chest Exam date and time: 08/05/2021 12:23 PM Age: 76 years old Clinical indication: Condition or disease; Lung condition and disease; Pleural effusion; Other: Not specified; Additional info: Reassess pleural effusion/resolution? TECHNIQUE: Imaging protocol: XR of the chest. Views: 2 views. COMPARISON: CR XR chest 1V portable [id number] 04/23/2021 10:37 AM FINDINGS: Lungs: The right base is opacified due to large right pleural effusion with right basilar atelectasis. The left lung is overinflated but clear. Pleural spaces: There is enlarging right pleural effusion. No pneumothorax. Heart/Mediastinum: Unremarkable. No cardiomegaly. Bones/joints: Unremarkable. XR/XR chest 2V* [id number] IMPRESSION: Opacification of the right lung base due to an enlarging right pleural effusion and worsening right basilar atelectasis.
== END 2021-08-05 12:08 | disposition home or self-care (01) ==
LOC: RAD 12:19
PROVIDERS: PCP Nurse Practitioner Family; Visit Provider Internal Medicine Pulmonary Disease
DX: J90 Pleural effusion, not elsewhere classified (principal)
CPT/HCPCS: 71046

== ENCOUNTER 2021-09-21 13:39 | Observation (INO) | payer MEDICARE, SELFPAY ==
[2021-09-21] VITALS (10 sets, daily range): BP systolic 153–176; BP diastolic 64–96; PULSE 58–66; RESP 16–67; TEMP 36.6–36.9; O2SAT 61–97; BMI 24.3
--- NOTE | 2021-09-21 14:30 | XRR_ITS ---
PROCEDURE INFORMATION: Exam: XR Chest Exam date and time: 09/21/2021 2:30 PM Age: 76 years old Clinical indication: Dyspnea; Patient HX: HX of fluid filled lungs. SOB, mild chest tightness. Thoracentesis x 4 months ago TECHNIQUE: Imaging protocol: XR of the chest. Views: 1 view. COMPARISON: CR XR chest 2V* [id number] 08/05/2021 12:32 PM FINDINGS: Lungs: No consolidation. Pleural spaces: Large volume right pleural effusion. No pneumothorax. Heart/Mediastinum: No cardiomegaly. Bones/joints: Visualized osseous structures are intact. XR/XR chest 1V portable [id number] IMPRESSION: Large volume right pleural effusion.
--- NOTE | 2021-09-21 14:31 | ECG_ITS ---
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 Measurements Intervals [place] Rate: 60 P: NC: QRS: 48 QRSD: 89 T: 62 QT: 428 QTc: 428 Interpretive Statements ATRIAL FIBRILLATION POSSIBLE ANTERIOR MYOCARDIAL INFARCTION , OF INDETERMINATE AGE [30 ms Q WAVE IN V3/V4, OR R < 0.2 mV IN V4] Compared to ECG 04/18/2021 17:44:32 Myocardial infarct finding now present ST (T wave) deviation no longer present Electronically Signed On 09-21-2021 22:23:54 CDT by Joaquin Womack M.D. [id number]
[2021-09-21 14:40] LABS: Basophils # 0.1 10^3/uL (0.0-0.1); Basophils % 0.8 %; Eosinophils # 0.1 10^3/uL (0.0-0.8); Eosinophils % 0.9 %; Hematocrit 35.6 % (42.0-52.0); Hemoglobin 11.5 g/dL (11.7-16.6); Lymphocytes # 1.7 10^3/uL (0.8-4.8); Lymphocytes % 18.1 %; Mean Corpuscular HGB Conc 32.3 g/dL (30.0-36.0); Mean Corpuscular Hemoglobin 29.8 pg (28.0-34.0); Mean Corpuscular Volume 92.2 fl (80-94); Mean Platelet Volume 9.7 fL (7.4-10.4); Monocytes # 0.7 10^3/uL (0.2-0.9); Monocytes % 7.1 %; Neutrophils # 6.75 10^3/uL (1.8-7.7); Neutrophils % 72.7 %; Nucleated Red Blood Cells % 0 %; Platelet Count 197 10^3/cmm (130-400); Red Blood Count 3.86 10^6/uL (4.1-5.3); Red Cell Distribution Width 13.9 % (12.1-15.1); White Blood Count 9.3 10^3/uL (4.0-10.0)
--- NOTE | 2021-09-21 14:41 | PM.HP ---
Providers/Chief Complaint Admitting Physician: Laura Walters MD Primary Care Provider: Cristine Raza Chief Complaint: fluid build up, sob History of Present Illness Ole Maldonado is a 76 year old male w/ h/o HTN, DM II, CHF, CRI St 4, Pleural effusion, smoker came to the ED c/o Increasing SOB for 2m. Over this period of 2m his weight has increased at least 6 lbs and has become more edematous. Last few days has had significant OJHN. Has mild non productive cough. Has PND sleeping in a raised chair. He denied CP, f/c. In the ED was noted to have Large rt sided pleural effusion, raised BNP. He was admitted w/ Ac CHF w/ Rt Pleural effusion Review of Systems Narrative: Const:?? Reports: fatigue; Denies: fever(s) o r chills Eyes:?? Denies: change in vision ENMT:?? Denies: mouth pain Card:?? Denies: chest pain or palpitations Resp:?? Reports: dyspnea; Denies: non-produc tive cough GI:?? Denies: abdominal pain, nausea, vomi ting or diarrhea :?? Denies: dysuria Musc:?? Reports: other (+l eg swelling); David es: extremity pain Skin/Breast:?? Denies: rash or ne w lesions Neuro:?? Denies: weakness i n extremities Psych:?? Reports: other (No rmal mood) Zach/Lymph:?? Denies: easy bruis ing Medications/Allergies Home Medications Medication Instructions Recorded Confirmed Last Taken Type amlodipine 10 mg tablet 10 mg PO QAM 03/21/21 09/21/21 09/21/21 08:00 History aspirin 81 mg chewable tablet 81 mg PO QAM 03/21/21 09/21/21 09/21/21 08:00 History metoprolol tartrate 50 mg tablet 50 mg PO BID 03/21/21 09/21/21 09/21/21 08:00 History atorvastatin 40 mg tablet (Lipitor) 40 mg PO QPM #30 tab 03/25/21 09/21/21 09/20/21 Rx glipizide 5 mg tablet 5 mg PO QPM 06/07/21 09/21/21 09/20/21 History lisinopril 20 mg tablet 20 mg PO QAM 06/07/21 09/21/21 09/21/21 History potassium chloride 10 mEq 10 meq PO BID 06/07/21 09/21/21 09/21/21 08:00 History tablet,extended release ascorbic acid (vitamin C) 500 mg 500 mg PO DAILY 09/21/21 09/21/21 09/21/21 History tablet (Vitamin C) doxazosin 4 mg tablet (Cardura) 4 mg PO QPM 09/21/21 09/21/21 09/20/21 History ergocalciferol (vitamin D2) 1,250 50,000 unit PO Q14D 09/21/21 09/21/21 09/21/21 History mcg (50,000 unit) capsule (Vitamin D2) furosemide 40 mg tablet (Lasix) 40 mg PO BID@07,09/21/21 09/21/21 09/21/21 08:00 History hydralazine 25 mg tablet 25 mg PO BID 09/21/21 09/21/21 09/21/21 08:00 History zinc 50 mg tablet 50 mg PO DAILY 09/21/21 09/21/21 09/21/21 History Allergies Allergy/AdvReac Type Severity Reaction Status Date / Time No Known Allergies Allergy Verified 09/21/21 15:02 PFSH Acute PFSH: Medical History Congestive heart failure Diabetes mellitus Hypertension Tobacco abuse Social History Smoking and tobacco status: former smoker (3 packs total) Quit status (tobacco): has quit using tobacco Former quit date comment: reports probably smoked less than 100 cigarettes in adolescence trying it Alcohol intake: former Vitals/I&O/Wt Last Vital Signs Temp 98.1 F 09/23/21 07:59 Pulse 61 09/23/21 07:59 Resp 16 09/23/21 07:59 BP 149/90 09/23/21 07:59 Pulse Ox 92 09/23/21 07:59 09/22/21 09/23/21 09/23/21 22:59 06:59 14:59 Intake Total 0 / 240 350 / 590 360 / 360 Output Total 500 / 1050 400 / 1450 125 / 125 Balance -500 / -810 -50 / -860 235 / 235 Weight last 48 hrs Weight 75.75 kg Weight 73.482 kg Physical Exam Narrative: NADHEENT: EOMI, PERLLA, Thr (-), Nose (-) Neck: supple, Thy (-), JVD (-), Bruit (-) CVS: S1S2, IRRR, Mur (-) Resp: Decreased BS rt post, Otherwise clear Abdomen: soft, NT, BS+, HSM (-) Edema + pitting Skeletal: no deformity 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, non focal Data : 09/22/21 04:44 09/22/21 04:44 A&P Assessment and plan (1) CHF exacerbation: Acute Sys CHF w/ fluid overload, Pleural Effusion Status: Acute (2) Pleural effusion: due to CHF Status: Acute (3) Dyspnea: due to CHF Status: Acute (4) Atrial fibrillation: rate controlled Status: Acute (5) CKD (chronic kidney disease): Ac on Chr Renal Insuff Stage 4 Status: Acute (6) Hypertension: stable Status: Acute Qualifiers: Hypertension type: unspecified Qualified Code(s): I10 - Essential (primary) hypertension (7) Tobacco abuse: Status: Acute (8) Diabetes mellitus: BS high in current lab Status: Acute Qualifiers: Diabetes mellitus type: type 2 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 May need Thoracocentesis if symptoms do not improve Attestations Medical Necessity Statement*: Pt admitted w/ Ac Sys CHF, Large Rt Pleural Effusion, Ac on CRI St 4 w/ symptoms of dyspnea, edema will need hospitalization for further managent and w/u. Time Spent in Patient Care: 45 min Critical Care Time: 10 min Coding Level of Care Code Acute Tour Guide for [facility] Fwd Diagnoses CHF exacerbation I50.9 Pleural effusion J90 Dyspnea R06.00 Atrial fibrillation I48.91 CKD (chronic kidney disease) N18.9 Hypertension I10 Hypertension type: unspecified Tobacco abuse Z72.0 Diabetes mellitus E11.22 Diabetes mellitus type: type 2 Diabetes mellitus mcc insulin use: unspecified truck terminal manager insulin use status Diabetes mellitus complication status: with kidney complications Diabetes mellitus complication detail: with chronic kidney disease Chronic kidney disease stage: unspecified stage Acute kidney injury N17.9
[2021-09-21 15:07] LABS: Alanine Aminotransferase 9 U/L (0-41); Albumin Level 4.3 g/dL (3.5-5.2); Alkaline Phosphatase 63 IU/L (40-130); Anion Gap 15.1 (5-19); Aspartate Amino Transferase 13 U/L (0-40); Blood Urea Nitrogen 28 mg/dL (8-23); Calcium 9.2 mg/dL (8.5-10.5); Carbon Dioxide 29 mmol/L (22-29); Chloride 97 mmol/L (98-107); Glucose 149 mg/dL (65-115); Lipase 27 U/L (13-60); Osmolality Calculated 292 mOsm/kg (285-295); Potassium 4.1 mmol/L (3.5-5.1); Sodium 137 mmol/L (136-145); Total Bilirubin 0.6 mg/dL (0.15-1.2); Total Protein 6.3 g/dL (6.6-8.7)
[2021-09-21 15:08] LABS: Troponin(5th) Baseline 40 ng/L (0-15)
--- NOTE | 2021-09-21 15:22 | ED_ITS ---
HPI - General Adult General: Chief complaint: Shortness of Breath/Dyspnea Stated complaint: fluid build up, sob Time Seen by Provider: 09/21/21 14:14 History of Present Illness: Patient is a 76-year-old male with a history of DM, HTN, CHF, right-sided pleural effusion presenting to the emergency room for evaluation of shortness of breath and wheezing. Patient tells me that over the last 2-month, he has gained about 6 or 7 pounds. In addition, patient noticed that he has had increasing shortness of breath and fatigue. Patient is followed by Dr. Bowers and has had right-sided pleural effusion. Patient denies any cough/phlegm production, fever/chills, sore throat, nasal congestion, abdominal complaints, nausea/vomiting, diarrhea, melena or hematochezia. Patient is compliant with Lasix 80 mg daily and has not had any improvement in symptoms such to come to the emergency room. Patient denies any chest pain or palpitation or lightheadedness at this time. Onset: chronic Duration:ongoing Location:home Severity:moderate Associated symptoms: Reports dyspnea; Deny chest pain, nausea, rash, palpitations or vomiting Review of Systems Const: Reports: fatigue; Denies: fever(s) or chills Eyes: Denies: change in vision ENMT: Denies: mouth pain Card: Denies: chest pain or palpitations Resp: Reports: dyspnea; Denies: non-productive cough GI: Denies: abdominal pain, nausea, vomiting or diarrhea : Denies: dysuria Musc: Reports: other (+leg swelling); Denies: extremity pain Skin/Breast: Denies: rash or new lesions Neuro: Denies: weakness in extremities Psych: Reports: other (Normal mood) Zach/Lymph: Denies: easy bruising PFS ED PFSH: Medical History Congestive heart failure Diabetes mellitus Hypertension Tobacco abuse Social History Smoking and tobacco status: former smoker (3 packs total) Quit status (tobacco): has quit using tobacco Former quit date comment: reports probably smoked less than 100 cigarettes in adolescence trying it Alcohol intake: former Physical Exam Const: COMMON NORMALS: alert HENMT: COMMON NORMALS: atraumatic HEAD & SCALP: atraumatic MOUTH: moist mucous membranes not abnormal Eye: COMMON NORMALS: EOMs intact bilaterally and conjunctivae normal CONJUNCTIVA: Yes conjunctivae normal Neck/C-Spine: COMMON NORMALS: full ROM and supple Resp: COMMON NORMALS: normal respiratory effort and clear to auscultation bilaterally AUSCULTATION: clear to auscultation bilaterally OTHER: +R decreased breath sounds, +mild crackles b/l Cardio: COMMON NORMALS: regular rate RATE: regular rate GI: COMMON NORMALS: Soft to palpation and non-tender PALPATION: Yes Soft to palpation Extremity: COMMON NORMALS: full ROM OTHER: 1+ edema b/l in the LEs Neuro: SENSORIUM/ORIENTATION: Yes alert MOTOR EXAM: No Abnormal motor strength present and Other motor observations present (no focal motor deficits) Psych: COMMON NORMALS: speech normal SPEECH: Yes normal speech MOOD & AFFECT: Yes euthymic mood Course Vital Signs: Vital signs: Vital Signs Temperature 97.6 F 09/22/21 08:00 Pulse Rate 70 09/22/21 08:20 Respiratory Rate 18 09/22/21 08:00 Blood Pressure 157/70 09/22/21 08:00 Pulse Oximetry 92 09/22/21 08:20 MDM - General Adult Medical Decision Making 76-year-old male with history of hypertension, diabetes, CHF who presents the emergency room for evaluation of recent weight gain and shortness of breath. On exam, patient has decreased breath sounds on the right side. X-ray of the chest showed large right-sided pleural effusion. Patient clinical picture is consistent with CHF exacerbation with BNP >5K. Case was discussed with Dr. Wong who recommended admission and will evaluate patient for thoracentesis with either him or IR. Patient is satting at 97% on 2 L of oxygen. There is no acute decompensation and we will not perform thoracentesis emergently. Patient received 80 mg of Lasix with mild improvement in symptoms. Patient has no signs of respiratory distress while observed. Patient will be admitted to hospital for further evaluation. Disposition: admission Lab Data : 09/22/21 04:44 09/22/21 04:44 Radiology Impressions Chest X-Ray 09/21/21 14:30 IMPRESSION: Large volume right pleural effusion. Laboratory Results WBC 9.3 10^3/uL (4.0-10.0) 09/21/21 14:20 RBC 3.86 10^6/uL (4.1-5.3) L 09/21/21 14:20 Hgb 11.5 g/dL (11.7-16.6) L 09/21/21 14:20 Hct 35.6 % (42.0-52.0) L 09/21/21 14:20 MCV 92.2 fl (80-94) 09/21/21 14:20 MCH 29.8 pg (28.0-34.0) 09/21/21 14:20 MCHC 32.3 g/dL (30.0-36.0) 09/21/21 14:20 RDW 13.9 % (12.1-15.1) 09/21/21 14:20 Plt Count 197 10^3/cmm (130-400) 09/21/21 14:20 MPV 9.7 fL (7.4-10.4) 09/21/21 14:20 Neut % (Auto) 72.7 % 09/21/21 14:20 Lymph % (Auto) 18.1 % 09/21/21 14:20 [place] % (Auto) 7.1 % 09/21/21 14:20 Eos % (Auto) 0.9 % 09/21/21 14:20 Baso % (Auto) 0.8 % 09/21/21 14: Neut # (Auto) 6.75 10^3/uL (1.8-7.7) 09/21/21 14:20 Lymph # (Auto) 1.7 10^3/uL (0.8-4.8) 09/21/21 14:20 [place] # (Auto) 0.7 10^3/uL (0.2-0.9) 09/21/21 14:20 Eos # (Auto) 0.1 10^3/uL (0.0-0.8) 09/21/21 14:20 Baso # (Auto) 0.1 10^3/uL (0.0-0.1) 09/21/21 14:20 Nucleated RBC % (auto) 0 % 09/21/21 14:20 Nucleated RBCs # 0.0 /100WBC 09/21/21 14:20 PT 14.70 SECONDS (12.1-14.9) 09/21/21 14:20 INR 1.12 (0.8-1.2) 09/21/21 14:20 APTT 29.9 SECONDS (23.9-36.7) 09/21/21 14:20 Sodium 137 mmol/L (136-145) 09/21/21 14:20 Potassium 4.1 mmol/L (3.5-5.1) 09/21/21 14:20 Chloride 97 mmol/L (98-107) L 09/21/21 14:20 Carbon Dioxide 29 mmol/L (22-29) 09/21/21 14:20 Anion Gap 15.1 (5-19) 09/21/21 14:20 BUN 28 mg/dL (8-23) H 09/21/21 14:20 Creatinine 2.6 mg/dL (0.7-1.2) H 09/21/21 14:20 GFR Calculation Not Reportable 09/21/21 14:20 Glucose 149 mg/dL (65-115) H 09/21/21 14:20 Calculated Osmolality 292 mOsm/kg (285-295) 09/21/21 14:20 Calcium 9.2 mg/dL (8.5-10.5) 09/21/21 14:20 Total Bilirubin 0.6 mg/dL (0.15-1.2) 09/21/21 14:20 AST 13 U/L (0-40) 09/21/21 14:20 ALT 9 U/L (0-41) 09/21/21 14:20 Alkaline Phosphatase 63 IU/L (40-130) 09/21/21 14:20 Troponin T Baseline 40 ng/L (0-15) H 09/21/21 14:20 NT-Pro-B Natriuret Pep 5037 pg/mL (0-450) H 09/21/21 14:20 Total Protein 6.3 g/dL (6.6-8.7) L 09/21/21 14:20 Albumin 4.3 g/dL (3.5-5.2) 09/21/21 14:20 Globulin 2.0 g/dL (1.3-4.6) 09/21/21 14:20 Lipase 27 U/L (13-60) 09/21/21 14:20 Imaging Data Other Imaging: Radiologist's impression: [employer] [address] XRay Report Signed Patient: Ole Maldonado Unit #: [id number] : 1945 Age/Sex: 76 / M ADM Date: 09/21/21 Loc: ER Room/Bed: Attending Dr: Ordering Provider/Ordering MD: Angela Powers MD Date of Service: 09/21/21 Procedure(s): XR chest 1V portable [id number] Accession Number(s): [id number] Report Number: [id number] PROCEDURE INFORMATION: Exam: XR Chest Exam date and time: 09/21/2021 2:30 PM Age: 76 years old Clinical indication: Dyspnea; Patient HX: HX of fluid filled lungs. SOB, mild chest tightness. Thoracentesis x 4 months ago TECHNIQUE: Imaging protocol: XR of the chest. Views: 1 view. COMPARISON: CR XR chest 2V* [id number] 08/05/2021 12:32 PM FINDINGS: Lungs: No consolidation. Pleural spaces: Large volume right pleural effusion. No pneumothorax. Heart/Mediastinum: No cardiomegaly. Bones/joints: Visualized osseous structures are intact. XR/XR chest 1V portable [id number] IMPRESSION: Large volume right pleural effusion. ? Dictated By: Cesar Ralph DO Signed By: Cesar Ralph DO Signed Date/Time: 09/21/21 1504 DD/ 1430 Discharge Plan Discharge Patient Disposition: Admitted As Inpatient Admit Provider: Laura Walters Clinical Impression: CHF exacerbation, Pleural effusion, Dyspnea Condition: Stable Coding Level of Care Code ED Steward/Stewardess Club Car for Chg Fwd Exam Comprehensive
[2021-09-21 15:43] LABS: NT Pro B Type Natriuretic Pept 5037 pg/mL (0-450)
[2021-09-21 16:10] LABS: INR 1.12 (0.8-1.2)
[2021-09-21 16:11] LABS: Partial Thromboplastin Time 29.9 SECONDS (23.9-36.7)
[2021-09-21] MEDS: FUROsemide 10 mg/mL SDV 10mL 80 MG IVP (16:12)
--- NOTE | 2021-09-21 16:31 | ECG_ITS ---
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 Measurements Intervals [place] Rate: 57 P: CA: QRS: 55 QRSD: 92 T: 44 QT: 447 QTc: 437 Interpretive Statements ATRIAL FIBRILLATION WITH SLOW VENTRICULAR RESPONSE Compared to ECG 09/21/2021 15:02:20 Myocardial infarct finding no longer present Electronically Signed On 09-22-2021 20:25:16 CDT by Joaquin Womack M.D. [email or web address] [email or web address] medical surgical hospitalAttendifypromedica defiance regional hospitalAmsterdam [place]/store/OM/[id number]/[id number]
--- NOTE | 2021-09-21 18:59 | PC.NURSE ---
Report to Adebayo DICKENS at this time
--- NOTE | 2021-09-21 20:31 | ECG_ITS ---
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 Measurements Intervals [place] Rate: 68 P: MD: QRS: 48 QRSD: 100 T: 75 QT: 417 QTc: 446 Interpretive Statements ATRIAL FIBRILLATION MINIMAL ST DEPRESSION [0.025+ mV ST DEPRESSION] Compared to ECG 09/21/2021 16:25:44 ST (T wave) deviation now present Electronically Signed On 09-22-2021 18:54:27 CDT by Joaquin Womack M.D. [email or web address] medical [email or web address] Healthcareharrison community hospital.[employer]/store/OM/[id number]
[2021-09-21] MEDS: enoxaparin 30 mg/0.3 mL Syringe SUBCUT (20:36)
[2021-09-21] MEDS: ergocalciferol (vitamin D2) 50,000 Unit Capsule 50000 UNIT PO (20:36)
[2021-09-21 20:52] LABS: Glucose Point of Care 171 mg/dL (70-110)
[2021-09-21] MEDS: insulin lispro 100 unit/1 mL SUBCUT (21:11)
[2021-09-21 21:34] LABS: Troponin 5 6HR 37.61 ng/L (0-15)
[2021-09-21 21:39] LABS: Troponin 5 6HR Delta -2.39 ng/L (0-12)
--- NOTE | 2021-09-21 22:21 | PC.NURSE ---
Order to place torrez catheter was given. When pt teaching was given to pt on torrez catheter. Pt refused torrez. Pt stated I dont want a torrez I am peeing in the urinal just fine.
[2021-09-22] VITALS (10 sets, daily range): BP systolic 142–175; BP diastolic 70–84; PULSE 52–70; RESP 18–20; TEMP 36.4–37.1; O2SAT 90–92
[2021-09-22 05:04] LABS: Hematocrit 34.9 % (42.0-52.0); Hemoglobin 11.3 g/dL (11.7-16.6)
[2021-09-22 05:15] LABS: Estmated Average Glucose 120; Hemoglobin A1C 5.8 % (4.0-6.0)
[2021-09-22 05:34] LABS: Alanine Aminotransferase 8 U/L (0-41); Albumin Level 3.4 g/dL (3.5-5.2); Alkaline Phosphatase 57 IU/L (40-130); Anion Gap 13.5 (5-19); Aspartate Amino Transferase 11 U/L (0-40); Blood Urea Nitrogen 32 mg/dL (8-23); Calcium 8.9 mg/dL (8.5-10.5); Carbon Dioxide 29 mmol/L (22-29); Chloride 100 mmol/L (98-107); Chol HDL Ratio 1.89 mg/dL (1.0-5.00); Cholesterol 85 mg/dL (0-200); Globulin 2.7 g/dL (1.3-4.6); Glucose 111 mg/dL (65-115); HDL Cholesterol 45 mg/dL (60-100); LDL Cholesterol Calculated 31 mg/dL (50-129); LDL HDL Ratio 0.69 RATIO (0.00-3.22); Magnesium 1.9 mg/dL (1.7-2.3); NT Pro B Type Natriuretic Pept 5158 pg/mL (0-450); Osmolality Calculated 296 mOsm/kg (285-295); Phosphorus 3.9 mg/dL (2.5-4.5); Potassium 3.5 mmol/L (3.5-5.1); Sodium 139 mmol/L (136-145); Thyroid Stimulating Hormone 1.93 uIU/mL (0.27-4.20); Total Bilirubin 0.5 mg/dL (0.15-1.2); Total Protein 6.1 g/dL (6.6-8.7); Triglycerides 44 mg/dL (0-150)
[2021-09-22] MEDS: aspirin 81 mg Chew Tablet PO (06:05)
[2021-09-22] MEDS: amlodipine 10 mg Tablet PO (06:05)
[2021-09-22 06:32] LABS: Glucose Point of Care 94 mg/dL (70-110)
[2021-09-22] MEDS: metoprolol tartrate 50 mg Tablet PO ×2 (08:36→18:23)
[2021-09-22] MEDS: famotidine 20 mg Tablet PO ×2 (08:36→18:23)
[2021-09-22] MEDS: FUROsemide 40 mg Tablet PO ×2 (08:37→18:23)
[2021-09-22] MEDS: potassium chloride ER 10 mEq Tablet PO ×2 (08:37→18:23)
[2021-09-22] MEDS: hyDRALAzine 25 mg Tablet PO ×2 (08:37→18:24)
[2021-09-22 10:50] LABS: Glucose Point of Care 116 mg/dL (70-110)
--- NOTE | 2021-09-22 15:07 | P.PN_ITS ---
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: A&Ox4, non foca Data : 09/22/21 04:44 09/22/21 04:44 A&P Assessment and plan (1) CHF exacerbation: compensating Status: Acute (2) Pleural effusion: clinically better Status: Acute (3) Dyspnea: improved Status: Acute (4) Atrial fibrillation: Status: Acute (5) CKD (chronic kidney disease): Status: Acute (6) Hypertension: Status: Acute Qualifiers: Hypertension type: unspecified Qualified Code(s): I10 - Essential (primary) hypertension (7) Tobacco abuse: Status: Acute (8) Diabetes mellitus: Status: Acute Qualifiers: Diabetes mellitus type: type 2 Diabetes mellitus prison insulin use: unspecified intermediate accountant insulin use status Diabetes mellitus complication status: with kidney complications Diabetes mellitus complication detail: with chronic kidney disease Chronic kidney disease stage: unspecified stage Qualified Code(s): E11.22 - Type 2 diabetes mellitus with diabetic chronic kidney disease Plan Change Lasix 40 mg bod po Continue other management Fluid restriction Attestations Medical Necessity Statement*: Has Ac CHF, Large Pleural effusion Ac on CRI. These are improving but require further removal of fluids and needs continued hospitalization Time Spent in Patient Care: 40 min Coding Level of Care Code Acute Film Booker for g Fwd Diagnoses CHF exacerbation I50.9 Pleural effusion J90 Dyspnea R06.00 Atrial fibrillation I48.91 CKD (chronic kidney disease) N18.9 Hypertension I10 Hypertension type: unspecified Tobacco abuse Z72.0 Diabetes mellitus E11.22 Diabetes mellitus type: type 2 Diabetes mellitus intermediate accountant insulin use: unspecified intermediate accountant insulin use status Diabetes mellitus complication status: with kidney complications Diabetes mellitus complication detail: with chronic kidney disease Chronic kidney disease stage: unspecified stage
[2021-09-22 17:04] LABS: Glucose Point of Care 111 mg/dL (70-110)
[2021-09-22] MEDS: atorvastatin 40 mg Tablet PO (18:23)
[2021-09-22] MEDS: doxazosin 4 mg Tablet PO (18:24)
[2021-09-22] MEDS: enoxaparin 30 mg/0.3 mL Syringe SUBCUT (19:47)
[2021-09-22 20:36] LABS: Glucose Point of Care 105 mg/dL (70-110)
[2021-09-23] VITALS: BP 131/61; PULSE 59; RESP 17; TEMP 37.2; O2SAT 97
--- NOTE | 2021-09-23 01:23 | PC.NURSE ---
Pt lying in bed resting with eyes closed. Resp even and non-labored no sob or distress noted. Pt had no c/o pain or discomfort at the present time. No needs voiced. Call light in reach. Will cont to monitor.
[2021-09-23 04:00] VITALS: BP 144/62; PULSE 57; RESP 16; TEMP 36.9; O2SAT 92
[2021-09-23] MEDS: amlodipine 10 mg Tablet PO (05:43)
[2021-09-23] MEDS: aspirin 81 mg Chew Tablet PO (05:43)
[2021-09-23 06:00] VITALS: PULSE 53
[2021-09-23 06:38] LABS: Glucose Point of Care 101 mg/dL (70-110)
[2021-09-23 07:59] VITALS: BP 149/90; PULSE 61; RESP 16; TEMP 36.7; O2SAT 92
[2021-09-23] MEDS: metoprolol tartrate 50 mg Tablet PO (08:05)
[2021-09-23] MEDS: famotidine 20 mg Tablet PO (08:06)
[2021-09-23] MEDS: potassium chloride ER 10 mEq Tablet PO (08:06)
[2021-09-23] MEDS: hyDRALAzine 25 mg Tablet PO (08:06)
[2021-09-23] MEDS: FUROsemide 40 mg Tablet PO (08:06)
[2021-09-23 11:44] LABS: Glucose Point of Care 103 mg/dL (70-110)
--- NOTE | 2021-09-23 15:38 | P.DS_ITS ---
Discharge Providers Date of Admission: 09/21/21 15:52 Date of Discharge: September 23, 2021 Attending Provider at Admission: Laura Walters MD Attending Provider at Discharge: Laura Walters MD Primary Care Provider: Cristine Raza Diagnoses at Discharge Discharge Diagnosis (1) CHF exacerbation: Status: Acute (2) Pleural effusion: Status: Acute (3) Dyspnea: Status: Acute (4) Atrial fibrillation: Status: Acute (5) CKD (chronic kidney disease): Status: Acute (6) Hypertension: Status: Acute Qualifiers: Hypertension type: unspecified Qualified Code(s): I10 - Essential (primary) hypertension (7) Tobacco abuse: Status: Acute (8) Diabetes mellitus: Status: Acute Qualifiers: Diabetes mellitus type: type 2 Diabetes mellitus extermination inspector insulin use: unspecified group home insulin use status Diabetes mellitus complication status: with kidney complications Diabetes mellitus complication detail: with chronic kidney disease Chronic kidney disease stage: unspecified stage Qualified Code( s): E11.22 - Type 2 diabetes mellitus with diabetic chronic kidney disease Reason for Visit Reason for Visit: fluid build up, sob Hospital Course Hospital Course Ole Maldonado is a 76 year old male w/ h/o HTN, DM II, CHF, CRI St 4, Pleural effusion, smoker came to the ED c/o Increasing SOB for 2m. Over this period of 2m his weight has increased at least 6 lbs and has become more edematous. Last few days has had significant JOHN. Has mild non productive cough. Has PND sleeping in a raised chair. He denied CP, f/c. In the ED was noted to have Large rt sided pleural effusion, raised BNP. He was admitted w/ Ac CHF w/ Rt Pleural effusion Pt was admitted under Telemetry. He was diuresed w/ IV Lasix and then oral diuretic. He responded well. His dyspmea, PND, improved. Edema resolved. His Zestril was held ue to Ac on CRI. His renal function was showing a downward trend in his Se Cr. His VSS were stable. He was on fluid restricted diet. 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 Physical Exam Narrative: NADHEENT: EOMI, PE RLLA, Thr (-), Nos e (-) Neck: supple , Thy (-), JVD (-) , Bruit (-) CVS: S 1S2, IRRR, Mur (-) Resp: Decreased B S rt post, Otherwi se clear Abdomen: soft, NT, BS+, HSM (-) Edema + pitti ng Skeletal: no de formity DIE FORGER: A&Ox4 , non focal Discharge Data Studies Completed and Pending Completed Studies During Hospitalization Category Date Time Status XR chest 1V portable [id number] Urgent Exams 09/21/21 14:30 Completed Radiology Impressions Chest X-Ray 09/21/21 14:30 IMPRESSION: Large volume right pleural effusion. Laboratory Results WBC 9.3 10^3/uL (4.0-10.0) 09/21/21 14:20 RBC 3.86 10^6/uL (4.1-5.3) L 09/21/21 14:20 Hgb 11.3 g/dL (11.7-16.6) L 09/22/21 04:44 Hct 34.9 % (42.0-52.0) L 09/22/21 04:44 MCV 92.2 fl (80-94) 09/21/21 14:20 MCH 29.8 pg (28.0-34.0) 09/21/21 14:20 MCHC 32.3 g/dL (30.0-36.0) 09/21/21 14:20 RDW 13.9 % (12.1-15.1) 09/21/21 14:20 Plt Count 197 10^3/cmm (130-400) 09/21/21 14:20 MPV 9.7 fL (7.4-10.4) 09/21/21 14:20 Neut % (Auto) 72.7 % 09/21/21 14:20 Lymph % (Auto) 18.1 % 09/21/21 14:20 [place] % (Auto) 7.1 % 09/21/21 14:20 Eos % (Auto) 0.9 % 09/21/21 14:20 Baso % (Auto) 0.8 % 09/21/21 14:20 Neut # (Auto) 6.75 10^3/uL (1.8-7.7) 09/21/21 14:20 Lymph # (Auto) 1.7 10^3/uL (0.8-4.8) 09/21/21 14:20 [place] # (Auto) 0.7 10^3/uL (0.2-0.9) 09/21/21 14:20 Eos # (Auto) 0.1 10^3/uL (0.0-0.8) 09/21/21 14:20 Baso # (Auto) 0.1 10^3/uL (0.0-0.1) 09/21/21 14:20 Nucleated RBC % (auto) 0 % 09/21/21 14:20 Nucleated RBCs # 0.0 /100WBC 09/21/21 14:20 PT 14.70 SECONDS (12.1-14.9) 09/21/21 14:20 INR 1.12 (0.8-1.2) 09/21/21 14:20 APTT 29.9 SECONDS (23.9-36.7) 09/21/21 14:20 Sodium 139 mmol/L (136-145) 09/22/21 04:44 Potassium 3.5 mmol/L (3.5-5.1) 09/22/21 04:44 Chloride 100 mmol/L (98-107) 09/22/21 04:44 Carbon Dioxide 29 mmol/L (22-29) 09/22/21 04:44 Anion Gap 13.5 (5-19) 09/22/21 04:44 BUN 32 mg/dL (8-23) H 09/22/21 04:44 Creatinine 2.2 mg/dL (0.7-1.2) H 09/22/21 04:44 GFR Calculation Not Reportable 09/22/21 04:44 Glucose 111 mg/dL (65-115) 09/22/21 04:44 POC Glucose 103 mg/dL (70-110) 09/23/21 11:05 Estimat Average Glucose 120 09/22/21 04:44 Hemoglobin A1c 5.8 % (4.0-6.0) 09/22/21 04:44 Calculated Osmolality 296 mOsm/kg (285-295) H 09/22/21 04:44 Calcium 8.9 mg/dL (8.5-10.5) 09/22/21 04:44 Phosphorus 3.9 mg/dL (2.5-4.5) 09/22/21 04:44 Magnesium 1.9 mg/dL (1.7-2.3) 09/22/21 04:44 Total Bilirubin 0.5 mg/dL (0.15-1.2) 09/22/21 04:44 AST 11 U/L (0-40) 09/22/21 04:44 ALT 8 U/L (0-41) 09/22/21 04:44 Alkaline Phosphatase 57 IU/L (40-130) 09/22/21 04:44 Troponin T Baseline 40 ng/L (0-15) H 09/21/21 14:20 Troponin T 120 Minute 37.10 ng/L (0-15) H 09/21/21 15:54 Delta Troponin T -2.90 ABS# (0-10) L 09/21/21 15:54 Troponin T Hi Sens 6Hr 37.61 ng/L (0-15) H 09/21/21 20:50 Troponin T Hi Sens 6Hr Delta -2.39 ng/L (0-12) L 09/21/21 20:50 NT-Pro-B Natriuret Pep 5158 pg/mL (0-450) H 09/22/21 04:44 Total Protein 6.1 g/dL (6.6-8.7) L 09/22/21 04:44 Albumin 3.4 g/dL (3.5-5.2) L 09/22/21 04:44 Globulin 2.7 g/dL (1.3-4.6) 09/22/21 04:44 Triglycerides 44 mg/dL (0-150) 09/22/21 04:44 Cholesterol 85 mg/dL (0-200) 09/22/21 04:44 LDL Cholesterol, Calc 31 mg/dL (50-129) L 09/22/21 04:44 HDL Cholesterol 45 mg/dL (60-100) L 09/22/21 04:44 LDL/HDL Ratio 0.69 RATIO (0.00-3.22) 09/22/21 04:44 Cholesterol/HDL Ratio 1.89 mg/dL (1.0-5.00) 09/22/21 04:44 Lipase 27 U/L (13-60) 09/21/21 14:20 TSH 1.93 uIU/mL (0.27-4.20) 09/22/21 04:44 Vitals Last Vital Signs Temp 98.1 F 09/23/21 07:59 Pulse 61 09/23/21 07:59 Resp 16 09/23/21 07:59 BP 149/90 09/23/21 07:59 Pulse Ox 92 09/23/21 07:59 Discharge Plan Discharge Patient Disposition: Home Condition: Stable Prescriptions: New atorvastatin 40 mg Tablet 40 mg PO QPM Qty: 30 0RF Continued glipizide 5 mg tablet 5 mg PO QPM 0RF potassium chloride 10 mEq tablet extended release 10 meq PO BID 0RF amlodipine 10 mg Tablet 10 mg PO QAM 0RF metoprolol tartrate 50 mg Tablet 50 mg PO BID 0RF aspirin 81 mg Tablet,Chewable 81 mg PO QAM 0RF atorvastatin [Lipitor] 40 mg tablet 40 mg PO QPM Qty: 30 0RF hydralazine 25 mg tablet 25 mg PO BID 0RF Vitamin C 500 mg Tablet 500 mg PO DAILY 0RF Cardura 4 mg tablet 4 mg PO QPM 0RF zinc 50 mg Tablet 50 mg PO DAILY 0RF Vitamin D2 1,250 mcg (50,000 unit) capsule 50,000 unit PO Q14D 0RF Lasix 40 mg tablet 40 mg PO BID@,14 0RF Discontinued lisinopril 20 mg tablet 20 mg PO QAM 0RF Discharge Orders: Discharge Order (Routine); Ordered 09/23/21 Ordered By: Laura Walters Referrals: Cristine Raza [Primary Care Provider] - 09/30/21 9:30 am Discharge Diet: Cardiac Discharge Activity: Resume usual activity Patient Instructions: Atorvastatin (By mouth) (Lipitor), A-fib (Atrial Fibrillation) (DC), Dyspnea (DC), CHF Stoplight, Opioid Safety Discharge Attestations Time Spent in Discharge Care*: greater than 30 min Time Spent in Smoking Cessation: 35 min Quality Metrics Clinical Quality Measures [ No reported AMI, CVA or VTE this stay] Coding Level of Care Code Acute Chg FW DC note Diagnoses CHF exacerbation I50.9 Pleural effusion J90 Dyspnea R06.00 Atrial fibrillation I48.91 CKD (chronic kidney disease) N18.9 Hypertension I10 Hypertension type: unspecified Tobacco abuse Z72.0 Diabetes mellitus E11.22 Diabetes mellitus type: type 2 Diabetes mellitus extermination inspector insulin use: unspecified extermination inspector insulin use status Diabetes mellitus complication status: with kidney complications Diabetes mellitus complication detail: with chronic kidney disease Chronic kidney disease stage: unspecified stage
== END 2021-09-23 16:07 | disposition home or self-care (01) ==
LOC: ER 15:17 → MEDSURG 16:35
PROVIDERS: Admitting Provider Internal Medicine; Emergency Provider Emergency Medicine; PCP Nurse Practitioner Family; Visit Provider Internal Medicine
DX: E11.22 Type 2 diabetes mellitus with diabetic chronic kidney disease (principal); I13.0 Hypertensive heart and chronic kidney disease with heart failure and stage 1 through stage 4 chronic kidney disease, or unspecified chronic kidney disease; N18.9 Chronic kidney disease, unspecified; I50.9 Heart failure, unspecified; J90 Pleural effusion, not elsewhere classified; R06.00 Dyspnea, unspecified; I48.91 Unspecified atrial fibrillation; F17.210 Nicotine dependence, cigarettes, uncomplicated
CPT/HCPCS: 36415; 36416; 51702; 71045; 80053; 80061; 82962; 83036; 83690; 83735; 83880; 84100; 84443; 84484; 85014; 85018; 85025; 85610; 85730; 93005; 96372; 96374; 99285; G0378; J1650; J1815; J1940

== ENCOUNTER → 2021-11-22 13:55 | Outpatient (BNVA) | payer MEDICARE, SELFPAY | PROVIDERS: PCP Nurse Practitioner Family; Visit Provider Internal Medicine Pulmonary Disease | DX: I50.9 Heart failure, unspecified (principal); J90 Pleural effusion, not elsewhere classified; N18.9 Chronic kidney disease, unspecified; Z87.891 Personal history of nicotine dependence; I10 Essential (primary) hypertension | CPT/HCPCS: 71046; 99214 ==

== ENCOUNTER 2021-11-23 08:47 | Inpatient (IN) | payer MEDICARE, SELFPAY ==
[2021-11-23] VITALS (14 sets, daily range): BP systolic 123–157; BP diastolic 48–77; PULSE 51–70; RESP 14–18; TEMP 36.1–36.8; O2SAT 94–99; BMI 24.9
--- NOTE | 2021-11-23 09:00 | XRR_ITS ---
PROCEDURE INFORMATION: Exam: XR Chest Exam date and time: 11/23/2021 9:09 AM Age: 76 years old Clinical indication: Cough and dyspnea; Prior surgery; Surgery type: Chest tube; Additional info: Dyspnea/cough TECHNIQUE: Imaging protocol: XR of the chest. Views: 1 view. COMPARISON: CR XR chest 2V* [id number] 11/22/2021 3:24 PM FINDINGS: Lungs: Similar atelectasis in the right lung. Pleural spaces: Similar moderate right hydropneumothorax. Heart/Mediastinum: Unremarkable. No cardiomegaly. Bones/joints: Unremarkable. XR/XR chest 1V portable [id number] IMPRESSION: Similar moderate right hydropneumothorax with right lung atelectasis.
--- NOTE | 2021-11-23 09:00 | ECG_ITS ---
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 Measurements Intervals [place] Rate: 56 P: IN: QRS: 19 QRSD: 90 T: 32 QT: 467 QTc: 453 Interpretive Statements ATRIAL FIBRILLATION WITH SLOW VENTRICULAR RESPONSE NONSPECIFIC T-WAVE ABNORMALITY Compared to ECG 09/21/2021 22:14:33 T-wave abnormality now present ST (T wave) deviation no longer present Electronically Signed On 11-23-2021 17:12:53 CDT by Joaquin Womack M.D. [email or web address]
[2021-11-23 09:22] LABS: ABG PCO2 40.8 mmHg (35-45); ABG PH Result 7.47 (7.35-7.45); Base Excess ABG 5.2 mmol/L (-2.0-2.0); Blood Gas Allen Test Pos; Blood Gas Operator Identificat CAK; Blood Gas Sample Site Radial, left; Blood Gas Sample Type Arterial; HCO3 ABG 29.4 mmol/L (22-26); HGB O2 Sat 93.6 % (95-100); Ionized Calcium Level - ABG 1.2 mmol/L (1.1-1.4); Methemoglobin 0.7 % (0.4-1.5); Oxygen Device ROOM AIR; Oxygen Saturation ABG 95.2; Potassium Level - ABG 3.2 mmol/L (3.5-5.0); Total Hemoglobin 10.8 g/dL (14-18)
--- NOTE | 2021-11-23 09:22 | ED_ITS ---
HPI - SOB/Dyspnea General: Chief Complaint: Shortness of Breath/Dyspnea Stated Complaint: Dr. rodríguez, he had air pocket in lungs, right side Time Seen by Provider: 11/23/21 08:54 Source: patient Mode of arrival: ambulatory Limitations: no limitations History of Present Illness: HPI Narrative: 76-year-old male seen yesterday by Dr. Hill in the office chest x-ray was done he was noted to have a large pleural effusion as well as a pneumothorax it was quite significant. He has not been particularly short of breath has not had any chest pain. He had a large pleural effusion drained in April 2021 which she did well he had no problems and the pigtail was removed he was discharged home. He was admitted this spring and had decompensation from heart failure and was diuresed and then discharged home on September 23. Chest x-ray done on September 21 at the time of admission did not show pneumothorax. Patient denies any hemoptysis or recent trauma. MD elicited complaint: shortness of breath and cough Pertinent past history: COPD and congestive heart failure Onset (ago): unknown Timing: constant Severity: mild Exacerbating factors: nothing Relieving factors: nothing Known history of: COPD and congestive heart failure Associated symptoms: Deny abdominal pain, chest congestion, chest pain, cough, diaphoresis, dizziness, extremity pain, fever(s), hemoptysis, lightheadedness, myalgias, nausea, orthopnea, palpitations, paresthesias, polydipsia, polyuria, rash, sense of impending doom, syncope or vomiting Treatment prior to arrival: none Review of Systems Const: Denies: fever(s) or diaphoresis ENMT: Denies: throat pain, ear or mastoid pain, nasal discharge or nasal congestion Card: Denies: chest pain, palpitations, lightheadedness, syncope or orthopnea Resp: Reports: dyspnea (Mild chronic); Denies: non-productive cough (Baseline), hemoptysis or chest congestion GI: Denies: abdominal pain, nausea or vomiting : Denies: flank pain, difficulty urinating, dysuria, urinary frequency or urinary urgency Musc: Denies: extremity pain Skin/Breast: Denies: rash or pruritus Neuro: Denies: dizziness Endo: Denies: polyuria or polydipsia PFS ED PFSH: Medical History Atrial fibrillation Congestive heart failure Ejection fraction 45%, diastolic dysfunction, 04/29 Diabetes mellitus Hypertension Pleural effusion Tobacco abuse Surgical History History of appendectomy History of back surgery Family History Other CAD (coronary artery disease) Social History Smoking and tobacco status: former smoker Quit status (tobacco): has quit using tobacco Former quit date comment: reports probably smoked less than 100 cigarettes in adolescence trying it Alcohol intake: former Physical Exam Const: GENERAL APPEARANCE: cooperative and comfortable ORIENTATION/CONSCIOUSNESS: Yes awake, Yes oriented to person, Yes oriented to place and Yes oriented to time HENMT: COMMON NORMALS: normocephalic, atraumatic and hearing grossly normal bilaterally HEAD & SCALP: normocephalic and atraumatic Resp: COMMON NORMALS: normal respiratory effort, No retractions and No use of accessory muscles AUSCULTATION: crackles Laterality: bilateral (At the bases) and diminished lung sounds on the right Cardio: COMMON NORMALS: regular rate, regular rhythm and No murmurs present (Cardio) RATE: regular rate RHYTHM: regular rhythm GI: COMMON NORMALS: Soft to palpation and No hepatosplenomegaly present AUSCULTATION: Yes normoactive bowel sounds PALPATION: Yes Soft to palpation, No Tenderness to palpation present (GI), No Guarding due to palpation present (GI) and Yes No hepatosplenomegaly present Extremity: COMMON NORMALS: normal to inspection, capillary refill normal, no clubbing, cyanosis or edema, no calf tenderness and no pedal edema Neuro: SENSORIUM/ORIENTATION: Yes oriented to person, Yes oriented to place and Yes oriented to time Skin: COMMON NORMALS: no rashes or lesions noted GENERAL SKIN EXAM: no rashes or lesions noted Course Vital Signs: Vital signs: Vital Signs Temperature 97.6 F 11/23/21 09:00 Pulse Rate 51 L 11/23/21 11:30 Respiratory Rate 17 11/23/21 11:30 Blood Pressure 149/57 11/23/21 11:30 Pulse Oximetry 95 11/23/21 11:30 MDM - SOB/Dyspnea Medical Decision Making Stable pneumothorax large pleural effusion discussed with hospitalist also discussed with pulmonology Dr. Woods is planning on seeing the patient and intends to place pigtail catheter to reduce the pneumothorax and drain the effusion. Will admit to the hospitalist. He is extremely stable at this point suspect he may have had this for some time. He is appropriate for admission to the floor. Dr. Kaleb gaona and Dr. Woods agree. Medical Records I reviewed the patient's medical records. Lab Data I reviewed the patient's lab results. : 11/23/21 09:30 11/23/21 10:30 Labs/Radiology: Radiology Impressions Chest X-Ray 11/23/21 09:00 IMPRESSION: Similar moderate right hydropneumothorax with right lung atelectasis. Laboratory Results WBC 10.8 10^3/uL (4.0-10.0) H 11/23/21 09:30 RBC 3.81 10^6/uL (4.1-5.3) L 11/23/21 09:30 Hgb 10.8 g/dL (11.7-16.6) L 11/23/21 09:30 Hct 33.7 % (42.0-52.0) L 11/23/21 09:30 MCV 88.5 fl (80-94) 11/23/21 09:30 MCH 28.3 pg (28.0-34.0) 11/23/21 09:30 MCHC 32.0 g/dL (30.0-36.0) 11/23/21 09:30 RDW 13.9 % (12.1-15.1) 11/23/21 09:30 Plt Count 240 10^3/cmm (130-400) 11/23/21 09:30 MPV 9.7 fL (7.4-10.4) 11/23/21 09:30 Neut % (Auto) 79.9 % 11/23/21 09:30 Lymph % (Auto) 11.5 % 11/23/21 09:30 [place] % (Auto) 7.2 % 11/23/21 09:30 Eos % (Auto) 0.6 % 11/23/21 09:30 Baso % (Auto) 0.4 % 11/23/21 09:30 Neut # (Auto) 8.62 10^3/uL (1.8-7.7) H 11/23/21 09:30 Lymph # (Auto) 1.2 10^3/uL (0.8-4.8) 11/23/21 09:30 [place] # (Auto) 0.8 10^3/uL (0.2-0.9) 11/23/21 09:30 Eos # (Auto) 0.1 10^3/uL (0.0-0.8) 11/23/21 09:30 Baso # (Auto) 0.0 10^3/uL (0.0-0.1) 11/23/21 09:30 Nucleated RBC % (auto) 0 % 11/23/21 09:30 Nucleated RBCs # 0.0 /100WBC 11/23/21 09:30 PT 16.00 SECONDS (12.1-14.9) H 11/23/21 09:30 INR 1.25 (0.8-1.2) H 11/23/21 09:30 APTT 30.6 SECONDS (23.9-36.7) 11/23/21 09:30 Specimen Type Arterial 11/23/21 09:11 Sample Site Radial, left 11/23/21 09:11 ABG pH 7.47 (7.35-7.45) H 11/23/21 09:11 ABG pCO2 40.8 mmHg (35-45) 11/23/21 09:11 ABG pO2 69.0 mmHg (80.0-100.0) L 11/23/21 09:11 ABG HCO3 29.4 mmol/L (22-26) H 11/23/21 09:11 ABG O2 Saturation 95.2 11/23/21 09:11 ABG Base Excess 5.2 mmol/L (-2.0-2.0) H 11/23/21 09:11 Prashant Test Pos 11/23/21 09:11 A-a O2 Gradient 4.0 mmHg (5-10) L 11/23/21 09:11 Hematocrit 33.0 % (42-52) L 11/23/21 09:11 Hgb O2 Saturation 93.6 % (95-100) L 11/23/21 09:11 Carboxyhemoglobin 1.0 %THgb (0.4-20.1) 11/23/21 09:11 Methemoglobin 0.7 % (0.4-1.5) 11/23/21 09:11 Total Hemoglobin 10.8 g/dL (14-18) L 11/23/21 09:11 Sodium 135.0 mmol/L (131-143) 11/23/21 09:11 Potassium 3.2 mmol/L (3.5-5.0) L 11/23/21 09:11 Glucose 162.0 mg/dL (70-115) H 11/23/21 09:11 Ionized Calcium 1.2 mmol/L (1.1-1.4) 11/23/21 09:11 O2 Delivery Device Room air 11/23/21 09:11 FiO2 21.0 % 11/23/21 09:11 Assistant Speech Language Pathologist ID Cak 11/23/21 09:11 Sodium 135 mmol/L (136-145) L 11/23/21 10:30 Potassium 3.5 mmol/L (3.5-5.1) 11/23/21 10:30 Chloride 96 mmol/L (98-107) L 11/23/21 10:30 Carbon Dioxide 29 mmol/L (22-29) 11/23/21 10:30 Anion Gap 13.5 (5-19) 11/23/21 10:30 BUN 29 mg/dL (8-23) H 11/23/21 10:30 Creatinine 2.3 mg/dL (0.7-1.2) H 11/23/21 10:30 GFR Calculation Not Reportable 11/23/21 10:30 Glucose 170 mg/dL (65-115) H 11/23/21 10:30 Calculated Osmolality 290 mOsm/kg (285-295) 11/23/21 10:30 Calcium 8.2 mg/dL (8.5-10.5) L 11/23/21 10:30 Total Bilirubin 0.5 mg/dL (0.15-1.2) 11/23/21 10:30 AST 8 U/L (0-40) 11/23/21 10:30 ALT 6 U/L (0-41) 11/23/21 10:30 Alkaline Phosphatase 55 IU/L (40-130) 11/23/21 10:30 Total Protein 6.2 g/dL (6.6-8.7) L 11/23/21 10:30 Albumin 3.5 g/dL (3.5-5.2) 11/23/21 10:30 Globulin 2.7 g/dL (1.3-4.6) 11/23/21 10:30 Discharge Plan Discharge Condition: Stable Prescriptions: No Action glipizide 5 mg tablet 5 mg PO QPM 0RF potassium chloride 10 mEq tablet extended release 10 meq PO BID 0RF amlodipine 10 mg Tablet 10 mg PO QAM 0RF metoprolol tartrate 50 mg Tablet 50 mg PO BID 0RF aspirin 81 mg Tablet,Chewable 81 mg PO QAM 0RF hydralazine 25 mg tablet 25 mg PO BID 0RF ascorbic acid (vitamin C) [Vitamin C] 500 mg Tablet 500 mg PO QAM 0RF doxazosin [Cardura] 4 mg tablet 4 mg PO QPM 0RF zinc 50 mg Tablet 50 mg PO DAILY 0RF ergocalciferol (vitamin D2) [Vitamin D2] 1,250 mcg (50,000 unit) capsule 50,000 unit PO Q14D 0RF furosemide [Lasix] 40 mg tablet 40 mg PO BID@,14 0RF lisinopril 20 mg tablet 20 mg PO QPM 0RF simvastatin 20 mg tablet 20 mg PO BEDTIME 0RF Referrals: Cristine Raza [Primary Care Provider] - Coding Level of Care Code ED [place] for Chg Fwd Exam Detailed
[2021-11-23 09:42] LABS: Basophils % 0.4 %; Eosinophils # 0.1 10^3/uL (0.0-0.8); Eosinophils % 0.6 %; Hematocrit 33.7 % (42.0-52.0); Hemoglobin 10.8 g/dL (11.7-16.6); Lymphocytes # 1.2 10^3/uL (0.8-4.8); Lymphocytes % 11.5 %; Mean Corpuscular Hemoglobin 28.3 pg (28.0-34.0); Mean Corpuscular Volume 88.5 fl (80-94); Mean Platelet Volume 9.7 fL (7.4-10.4); Monocytes # 0.8 10^3/uL (0.2-0.9); Monocytes % 7.2 %; Neutrophils # 8.62 10^3/uL (1.8-7.7); Neutrophils % 79.9 %; Nucleated Red Blood Cells % 0 %; Platelet Count 240 10^3/cmm (130-400); Red Blood Count 3.81 10^6/uL (4.1-5.3); Red Cell Distribution Width 13.9 % (12.1-15.1); White Blood Count 10.8 10^3/uL (4.0-10.0)
[2021-11-23 09:56] LABS: INR 1.25 (0.8-1.2); Partial Thromboplastin Time 30.6 SECONDS (23.9-36.7)
--- NOTE | 2021-11-23 10:46 | P.HP_ITS ---
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 Patient has been having some shortness of breath, going on for many months waxing and waning. He has had a little bit more discomfort in the right chest lately, but reports it really is not pain. Feels a significant amount of shortness of breath with any exertion. No fever or cough. No recent injury. He was seen by pulmonary yesterday, routine office visit for follow-up of recurrent right pleural effusion and at that time a chest x-ray was performed demonstrating the concern. He has had issues with a right pleural effusion, at least since March 2021. At that time he received a thoracentesis, and was readmitted in April 2021 with recurrent right pleural effusion and a small pneumothorax. A small chest tube was placed at that time, and reexpansion of the pneumothorax occurred. No evidence of malignancy was found, and effusion was transudative at that time. It was thought it could be secondary to diastolic heart failure. Work-up in April included a nuclear stress test, and echocardiogram demonstrating an EF of 45% and diastolic dysfunction, and a CT of chest demonstrating atelectatic right lower lobe, bilateral effusions right greater than left following a thoracentesis. In subsequent visits with pulmonary, he has had the right pleural effusion noted by ultrasound, but secondary to paucity of symptoms no repeat thoracentesis was done on these visits. Review of Systems General: Reports: 10 or more systems reviewed and unremarkable except in HPI and below Const: Denies: fever(s) or chills Eyes: Denies: change in vision ENMT: Denies: throat pain Card: Reports: chest pain Resp: Reports: dyspnea GI: Denies: abdominal pain : Denies: flank pain Musc: Reports: back pain; Denies: neck pain Skin/Breast: Denies: rash Neuro: Denies: headache(s) Psych: Denies: anxiety or depression Endo: Denies: polyuria Zach/Lymph: Denies: easy bruising All/Imm: Denies: urticaria Medications/Allergies Home Medications Medication Instructions Recorded Confirmed Last Taken Type amlodipine 10 mg tablet 10 mg PO QAM 03/21/21 11/22/21 09/21/21 08:00 History aspirin 81 mg chewable tablet 81 mg PO QAM 03/21/21 11/22/21 09/21/21 08:00 His tory metoprolol tartrate 50 mg tablet 50 mg PO BID 03/21/21 11/22/21 09/21/21 08:00 History glipizide 5 mg tablet 5 mg PO QPM 06/07/21 11/22/21 09/20/21 History potassium chloride 10 mEq 10 meq PO BID 06/07/21 11/22/21 09/21/21 08:00 History tablet,extended release ascorbic acid (vitamin C) 500 mg 500 mg PO DAILY 09/21/21 11/22/21 09/21/21 History tablet (Vitamin C) doxazosin 4 mg tablet (Cardura) 4 mg PO QPM 09/21/21 11/22/21 09/20/21 History ergocalciferol (vitamin D2) 1,250 50,000 unit PO Q14D 09/21/21 11/22/21 09/21/21 History mcg (50,000 unit) capsule (Vitamin D2) furosemide 40 mg tablet (Lasix) 40 mg PO BID@07,14 09/21/21 11/22/21 09/21/21 08:00 History hydralazine 25 mg tablet 25 mg PO BID 09/21/21 11/22/21 09/21/21 08:00 History zinc 50 mg tablet 50 mg PO DAILY 09/21/21 09/21/21 09/21/21 History lisinopril 20 mg tablet 20 mg PO QPM 11/23/21 11/23/21 11/22/21 History simvastatin 20 mg tablet 20 mg PO BEDTIME 11/23/21 11/23/21 11/22/21 History Allergies Allergy/AdvReac Type Severity Reaction Status Date / Time No Known Allergies Allergy Verified 11/23/21 11:03 PFSH Acute PFSH: Medical History (Updated 11/23/21 @ 11:17 by Elmer Pierce MD) Atrial fibrillation Congestive heart failure Ejection fraction 45%, diastolic dysfunction, 04/29 Diabetes mellitus Hypertension Pleural effusion Tobacco abuse Surgical History (Updated 11/23/21 @ 11:05 by Elmer Pierce MD) History of appendectomy History of back surgery Family History Other CAD (coronary artery disease) Social History Smoking and tobacco status: former smoker Quit status (tobacco): has quit using tobacco Former quit date comment: reports probably smoked less than 100 cigarettes in adolescence trying it Alcohol intake: former Vitals/I&O/Wt Last Vital Signs Temp 97.6 F 11/23/21 09:00 Pulse 52 L 11/23/21 10:02 Resp 17 11/23/21 10:02 BP 123/48 11/23/21 10:02 Pulse Ox 96 11/23/21 10:02 Weight last 48 hrs Weight 74.389 kg Physical Exam Narrative: General exam is a white male, no obvious respiratory distress, on no oxygen HEENT: Pupils equally round. Oropharynx clear. Neck is supple no lymphadenopathy thyromegaly Cardiovascular irregular, irregular. No murmur. Lungs clear no wheezing or crackles. Markedly diminished breath sounds right side. Abdomen is soft nontender positive bowel sounds. No obvious organomegaly exams deferred Extremities no cyanosis clubbing or edema, cap refill brisk Skin no rash Neuro no obvious focal deficits. Data : 11/23/21 09:30 11/23/21 10:30 Other Labs: INR 1.25 ABG demonstrates pH 7.47, PCO2 41, PO2 of 69 Calcium 8.2, LFTs normal EKG demonstrates atrial fibrillation, rate of around 55, normal axis, no acute changes Chest x-ray demonstrates moderate right hydropneumothorax with atelectasis, similar to 11/22 A&P Assessment and plan (1) Pneumothorax: Patient with right-sided pneumothorax, this is new from previous films and was noted yesterday. At this point he appears clinically stable and can transfer to the floor under telemetry Pulmonary consult for possible chest tube. There is a significant component of pleural effusion as well. There is consideration for pleurodesis, but can be delineated further by pulmonary Consider imaging following drainage of fluid. Status: Acute (2) Pleural effusion: See above Status: Acute (3) Congestive heart failure: Currently appears compensated Await electrolytes Continue home medications Status: Acute Qualifiers: Heart failure chronicity: unspecified Heart failure type: unspecified Qualified Code(s): I50.9 - Heart failure, unspecified (4) Atrial fibrillation: Currently rate controlled We will not start full anticoagulation currently, but will discuss with patient prior to discharge. Note that chest tube placement is being considered. 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 mellitus superintendent terminal insulin use: unspecified superintendent terminal insulin use status Diabetes mellitus complication status: with kidney complications Diabetes mellitus complication detail: with chronic kidney disease Chronic kidney disease stage: unspecified stage Qualified Code(s): E11.22 - Type 2 diabetes mellitus with diabetic chronic kidney disease Plan Multiple other medical problems as outlined in past medical history Full code Lovenox for DVT prophylaxis Attestations Medical Necessity Statement*: Will need greater than 2 midnight stay for treatment of hydropneumothorax on the right with chest tube insertion. Coding Level of Care Code Acute Pan Operator for [facility] Diagnoses Pneumothorax J93.9 Pleural effusion J90 Congestive heart failure I50.9 Heart failure chronicity: unspecified Heart failure type: unspecified Atrial fibrillation I48.91 Diabetes mellitus E11.22 Diabetes mellitus type: type 2 Diabetes mellitus superintendent terminal insulin use: unspecified halfway insulin use status Diabetes mellitus complication status: with kidney complications Diabetes mellitus complication detail: with chronic kidney disease Chronic kidney disease stage: unspecified stage
[2021-11-23 11:01] LABS: Alanine Aminotransferase 6 U/L (0-41); Albumin Level 3.5 g/dL (3.5-5.2); Alkaline Phosphatase 55 IU/L (40-130); Anion Gap 13.5 (5-19); Aspartate Amino Transferase 8 U/L (0-40); Blood Urea Nitrogen 29 mg/dL (8-23); Calcium 8.2 mg/dL (8.5-10.5); Carbon Dioxide 29 mmol/L (22-29); Chloride 96 mmol/L (98-107); Globulin 2.7 g/dL (1.3-4.6); Glucose 170 mg/dL (65-115); Osmolality Calculated 290 mOsm/kg (285-295); Potassium 3.5 mmol/L (3.5-5.1); Sodium 135 mmol/L (136-145); Total Bilirubin 0.5 mg/dL (0.15-1.2); Total Protein 6.2 g/dL (6.6-8.7)
--- NOTE | 2021-11-23 11:41 | PC.NURSE ---
PT placed on continuous NIBP, SpO2, and CM
--- NOTE | 2021-11-23 13:09 | PM.CONSULT ---
Providers/Reason For Consult Consulting Physician/Specialty*: Pulmonary and critical care medicine Reason for Consult*: Right-sided hydropneumothorax Requesting Physician: Dr. Pierce Attending Physician: Adrian Woods MD Primary Care Provider: Cristine Raza History of Present Illness History of Present Illness Ole Maldonado is a 76 year old male with a past medical history of hypertension, heart failure with mildly reduced ejection fraction, chronic kidney disease, diabetes mellitus type 2 who was asked to come to the emergency department after a chest x-ray in the office yesterday revealed moderate sized right-sided hydropneumothorax. The patient in fact suffered from another episode of pneumothorax on the right side in April 2021. The patient at that time underwent drainage of the right pleural space with a pigtail catheter. A total of 2200 cc of fluid was removed at that time. The fluid study at that time was consistent with transudative lymphocyte predominant pleural effusion. The patient has had bilateral pleural effusion for a long time likely secondary to his heart failure. The patient apparently carries a diagnosis of COPD however he has smoked for about a year when he was a teenager. 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 The patient does not complain any significant change in his shortness of breath. In the emergency department today, the patient was again seen to have a right-sided hydropneumothorax. The etiology of this recurrent pneumothorax is unclear. He has had CT scan performed in the past however a complete evaluation of the lung parenchyma could not be possible because of the pleural fluid being there. Based on the parenchyma that we could see there was no evidence of bullous disease, centrilobular or paraseptal emphysema. The patient was seen and examined. He appears to be comfortable while resting. No complaints of chest pain at this time. Denies any significant cough, sputum production, wheezing. The patient does have significant exertional shortness of breath. Review of Systems Narrative: General: No fevers chills night sweats or fatigue Skin: No rash HEENT: No nasal congestion, rhinitis, sinusitis, sneezing, hoarseness of voice Neck: There is no neck swelling, mass or swollen glands. Respiratory: Please see my HPI. Cardiovascular: No chest pain, resting shortness of breath Gastrointestinal: No abdominal pain, nausea, vomiting Musculoskeletal: No joint pain or swelling, muscle weakness, morning stiffness Neurological: Patient is awake alert and oriented x3, no paralysis, gross motor function is normal. Psychiatric: No anxiety or depression Medications/Allergies Home Medications Medication Instructions Recorded Confirmed Last Taken Type amlodipine 10 mg tablet 10 mg PO QAM 03/21/21 11/23/21 11/23/21 06:30 History aspirin 81 mg chewable tablet 81 mg PO QAM 03/21/21 11/23/21 11/23/21 06:30 History metoprolol tartrate 50 mg tablet 50 mg PO BID 03/21/21 11/23/21 11/23/21 06:30 History glipizide 5 mg tablet 5 mg PO QPM 06/07/21 11/23/21 11/22/21 History potassium chloride 10 mEq 10 meq PO BID 06/07/21 11/23/21 11/21/21 History tablet,extended release ascorbic acid (vitamin C) 500 mg 500 mg PO QAM 09/21/21 11/23/21 11/23/21 History tablet (Vitamin C) doxazosin 4 mg tablet (Cardura) 4 mg PO QPM 09/21/21 11/23/21 11/22/21 History ergocalciferol (vitamin D2) 1,250 50,000 unit PO Q14D 09/21/21 11/23/21 11/18/21 History mcg (50,000 unit) capsule (Vitamin D2) furosemide 40 mg tablet (Lasix) 40 mg PO BID@07,14 09/21/21 11/23/21 11/21/21 History hydralazine 25 mg tablet 25 mg PO BID 09/21/21 11/23/21 11/23/21 06:30 History zinc 50 mg tablet 50 mg PO DAILY 09/21/21 11/23/21 11/16/21 History lisinopril 20 mg tablet 20 mg PO QPM 11/23/21 11/23/21 11/22/21 History simvastatin 20 mg tablet 20 mg PO BEDTIME 11/23/21 11/23/21 11/22/21 History Allergies Allergy/AdvReac Type Severity Reaction Status Date / Time No Known Allergies Allergy Verified 11/23/21 11:03 PFSH Acute PFSH: Medical History Atrial fibrillation Congestive heart failure Ejection fraction 45%, diastolic dysfunction, 04/29 Diabetes mellitus Hypertension Pleural effusion Tobacco abuse Surgical History History of appendectomy History of back surgery Family History Other CAD (coronary artery disease) Social History Smoking and tobacco status: former smoker Quit status (tobacco): has quit using tobacco Former quit date comment: reports probably smoked less than 100 cigarettes in adolescence trying it Alcohol intake: former Vitals/I&O/Wt Last Vital Signs Temp 97.6 F 11/23/21 09:00 Pulse 55 L 11/23/21 13:01 Resp 17 11/23/21 13:01 BP 131/60 11/23/21 13:01 Pulse Ox 94 11/23/21 13:01 Weight last 48 hrs Weight 164 lb Physical Exam Narrative: General: Patient is awake alert and oriented, in no distress. Neck: Mild JVD Respiratory: Auscultation: Significantly reduced breath sound on the right side posteriorly and laterally, no wheezing or rhonchi Cardiovascular: Irregularly irregular rhythm, no murmur Abdomen: Soft, nontender, nondistended, positive bowel sound Musculoskeletal: No obvious joint deformity Skin: No rash Neuro: Mental status is normal, no gross cranial nerve deficit, no gross motor deficit Data : 11/23/21 09:30 11/23/21 10:30 Other data: I have reviewed the patient's laboratory, microbiologic and radiologic data. Please see the HPI for detail A&P Assessment and plan (1) Hydropneumothorax: This is a 76-year-old gentleman who was presented to the hospital after incidentally found to have right-sided hydropneumothorax yesterday. This is the second time the patient has developed hydropneumothorax. The first time was in April 2021. The patient has bilateral pleural effusion likely secondary to heart failure. However it is unclear why the patient had 2 episodes of pneumothorax on top of the hydrothorax that he has his baseline. His chest x-ray in September 2021 revealed right-sided pleural effusion. There was evidence of thickening of the right minor fissure. 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 The patient also has chronic kidney disease which could be contributing to uremia and pleural inflammation leading to the trapped lung physiology. However, the pneumothorax is new and I do not know exactly why he is suffering from them. The patient does not have significant history of smoking. There is no significant lung parenchymal abnormalities on the CT scan. The plan is going to be performing a right-sided chest tube placement with appropriate studies. If we are able to achieve lung apposition, I will likely perform pleurodesis to prevent recurrence of pleural effusion and pneumothorax Status: Acute (2) Congestive heart failure: The patient has heart failure with mild reduced ejection fraction. We will optimize his care regarding heart failure. Status: Acute Qualifiers: Heart failure chronicity: unspecified Heart failure type: unspecified Qualified Code(s): I50.9 - Heart failure, unspecified Coding Level of Care Code Acute Beauty Operator for [facility] Diagnoses Hydropneumothorax J94.8 Congestive heart failure I50.9 Heart failure chronicity: unspecified Heart failure type: unspecified
--- NOTE | 2021-11-23 13:58 | PC.NURSE ---
Pulse ox stayed within normal limits during procedure.
--- NOTE | 2021-11-23 14:34 | XRR_ITS ---
PROCEDURE INFORMATION: Exam: XR Chest Exam date and time: 11/23/2021 2:43 PM Age: 76 years old Clinical indication: Device placement; Picc; Additional info: Confirm chest tube placement TECHNIQUE: Imaging protocol: XR of the chest. Views: 1 view. COMPARISON: CR XR chest 1V portable [id number] 11/23/2021 9:09 AM FINDINGS: Lungs: Patchy opacities in the expanded right mid and lower lung may represent compressive atelectasis however other process such as pneumonia or neoplasm cannot be excluded. Continued follow-up should be obtained. Next item no pneumothorax on the left. Next item left lung is grossly clear however the retrocardiac region is difficult to assess. Pleural spaces: Two portable semiupright AP views were submitted at about 2:44 p.m. versus 9:11 a.m. same day earlier. Interval placement of chest tube with the tip in the lateral right basilar region with interval decrease of right pleural effusion/associated consolidation and right-sided pneumothorax. The pneumothorax measures about 1 cm at the mid lateral thorax region, versus 3.1 cm previously. Heart/Mediastinum: No cardiomegaly. Bones/joints: No acute findings. XR/XR chest 1V portable [id number] IMPRESSION: Interval placement of right lateral basilar chest tube with interval decrease of right pneumothorax and right-sided pleural effusion/associated opacities.
--- NOTE | 2021-11-23 14:36 | P.PCN_ITS ---
Procedure/Consent Time out: Time Out Performed: Yes Consent: Consent for Procedure: Consent obtained from patient Procedure Narrative: Name of the procedure: Right-sided chest tube placement under ultrasound guidance. Indication: Right-sided hydropneumothorax Medications: Lidocaine 1% 10 mL. Description of the procedure: An ultrasound was performed and a large right- sided pleural effusion was identified. A safe fluid pocket was identified with the ultrasound guidance and marked. The skin, subcutaneous tissue and the pleura was anesthetized with 1% lidocaine. Needle was advanced till flash back was noted. Straw-colored fluid and air was aspirated Using Seldinger technique the right-sided chest tube was put in. The chest tube was secured with suture and transparent dressing. 1000 mL of straw-colored fluid was obtained. Sample: The right-sided pleural fluid was sent for cell count and differential, Gram stain culture, AFB stain and culture, fungal stain and culture, pH, glucose, LDH, total protein, albumin, amylase, triglyceride. Complications: None. Chest x-ray: Pending. Acute Procedures Epistaxis Control: Time out performed: Yes
[2021-11-23 14:49] LABS: Body Fluid Polynuclear #Cells 0.016; Body Fluid WBC 796 /uL
[2021-11-23 15:05] LABS: LDH Pleural Fluid 89 U/L; Total Protein Pleural Fluid 3.1 g/dL; Triglycerides, Pleural Fluid 10 mg/dL
[2021-11-23] MEDS: enoxaparin 40 mg/0.4 mL Syringe SUBCUT (15:10)
[2021-11-23] MEDS: FUROsemide 40 mg Tablet PO (15:10)
[2021-11-23 17:16] LABS: Apprearance, Body Fluid TURBID; Color, Body Fluid AMBER
[2021-11-23] MEDS: doxazosin 4 mg Tablet PO (17:22)
[2021-11-23] MEDS: hyDRALAzine 25 mg Tablet PO (17:22)
[2021-11-23] MEDS: lisinopril 20 mg Tablet PO (17:22)
[2021-11-23] MEDS: metoprolol tartrate 50 mg Tablet PO (17:22)
[2021-11-23] MEDS: potassium chloride ER 10 mEq Tablet PO (17:22)
[2021-11-23 17:46] LABS: Glucose Point of Care 108 mg/dL (70-110)
[2021-11-23 21:08] LABS: Glucose Point of Care 179 mg/dL (70-110)
[2021-11-23] MEDS: insulin lispro 100 unit/1 mL SUBCUT (21:19)
[2021-11-23] MEDS: atorvastatin 40 mg Tablet 20 MG PO (21:19)
[2021-11-23] MEDS: zolpidem 5 mg Tablet PO (21:59)
[2021-11-24] VITALS (10 sets, daily range): BP systolic 118–149; BP diastolic 59–77; PULSE 49–74; RESP 14–18; TEMP 36.3–37.4; O2SAT 94–96
[2021-11-24 06:11] LABS: Basophils # 0.1 10^3/uL (0.0-0.1); Basophils % 0.8 %; Eosinophils # 0.1 10^3/uL (0.0-0.8); Eosinophils % 1.2 %; Hematocrit 31.1 % (42.0-52.0); Lymphocytes # 1.5 10^3/uL (0.8-4.8); Lymphocytes % 20.2 %; Mean Corpuscular HGB Conc 32.2 g/dL (30.0-36.0); Mean Corpuscular Hemoglobin 28.1 pg (28.0-34.0); Mean Corpuscular Volume 87.4 fl (80-94); Mean Platelet Volume 9.6 fL (7.4-10.4); Monocytes # 0.7 10^3/uL (0.2-0.9); Monocytes % 8.8 %; Neutrophils # 5.15 10^3/uL (1.8-7.7); Neutrophils % 68.5 %; Nucleated Red Blood Cells % 0 %; Platelet Count 257 10^3/cmm (130-400); Red Blood Count 3.56 10^6/uL (4.1-5.3); Red Cell Distribution Width 13.7 % (12.1-15.1); White Blood Count 7.5 10^3/uL (4.0-10.0)
[2021-11-24 06:34] LABS: Glucose Point of Care 100 mg/dL (70-110)
[2021-11-24 06:41] LABS: Anion Gap 12.6 (5-19); Blood Urea Nitrogen 28 mg/dL (8-23); Calcium 8.3 mg/dL (8.5-10.5); Carbon Dioxide 28 mmol/L (22-29); Chloride 100 mmol/L (98-107); Glucose 91 mg/dL (65-115); Osmolality Calculated 289 mOsm/kg (285-295); Potassium 3.6 mmol/L (3.5-5.1); Sodium 137 mmol/L (136-145)
[2021-11-24] MEDS: amlodipine 10 mg Tablet PO (06:52)
[2021-11-24] MEDS: FUROsemide 40 mg Tablet PO ×2 (06:52→14:04)
[2021-11-24] MEDS: aspirin 81 mg Chew Tablet PO (06:53)
[2021-11-24] MEDS: metoprolol tartrate 50 mg Tablet PO (08:44)
[2021-11-24] MEDS: hyDRALAzine 25 mg Tablet PO ×2 (08:44→18:18)
[2021-11-24] MEDS: potassium chloride ER 10 mEq Tablet PO ×2 (08:45→18:18)
--- NOTE | 2021-11-24 09:10 | XR_ITS ---
WS: [id number] Portable AP upright chest, 11/24/2021 Clinical Data: ptx Comparison: Portable chest, 11/23/2021. Findings: The right basilar chest tube remains the same. There is still a right basilar pneumothorax. The right lower lobe shows partial atelectasis with a density at the inferior aspect of the right lo wer lobe unchanged. The left lung remains clear. The heart is slightly enlarged. There is a monitor l ead on the right chest. There are splenic artery calcifications. XR/XR chest 1V portable [id number] Impression: 1. No change in position of right basilar chest tube. 2. No change in right basilar pneumothorax. 3. No change in atelectasis of the right lower lobe.
--- NOTE | 2021-11-24 09:22 | PM.PN ---
Subjective Subjective: Patient feels like he may be breathing a little bit better. No significant pain with the tube. No nausea. Wants more to eat. Medications: Reviewed: Yes Vitals/I&O/Wt Last Vital Signs Temp 98.7 F 11/24/21 07:40 Pulse 62 11/24/21 07:40 Resp 18 11/24/21 07:40 BP 149/77 11/24/21 07:40 Pulse Ox 94 11/24/21 07:40 11/23/21 11/24/21 11/24/21 22:59 06:59 14:59 Intake Total 700 / 700 120 / 820 600 / 600 Output Total 1600 / 1600 270 / 1870 Balance -900 / -900 -150 / -1050 600 / 600 Weight last 48 hrs Weight 74.389 kg Physical Exam Narrative: General exam is a white male, no obvious respiratory distress, on no oxygen. Chest tube without leak Neck is supple no lymphadenopathy thyromegaly Cardiovascular irregular, irregular. No murmur. Lungs diminished breath sounds bilaterally. No wheezing. Right-sided chest tube noted. Abdomen is soft nontender positive bowel sounds. No obvious organomegaly Extremities no cyanosis clubbing or edema, cap refill brisk Skin no rash Data : 11/24/21 05:43 11/24/21 05:43 Micro: Microbiology 11/23/21 13:45 Gram Stain - Final Pleural Fluid A&P Assessment and plan (1) Pneumothorax: Received chest tube yesterday, secondary to hydropneumothorax. Approximately 1 L removed. Has had an additional 60 mL overnight. Repeat chest x-ray today, to determine if trapped lung is present Appreciate pulmonary consultation. They will decide whether further imaging is needed, and when chest tube can be removed. Status: Acute (2) Pleural effusion: See above Status: Acute (3) Congestive heart failure: Currently appears compensated Renal function has remained stable with thoracentesis. He was about 1 L negative yesterday excluding the thoracentesis. Approximately 2 L negative with this. Continue home medications Status: Acute Qualifiers: Heart failure chronicity: unspecified Heart failure type: unspecified Qualified Code(s): I50.9 - Heart failure, unspecified (4) Atrial fibrillation: Currently rate controlled We will not start full anticoagulation currently, but will discuss with patient prior to discharge. Note that chest tube placement is being considered. 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 Coding Level of Care Code Acute Marine Electrician Apprentice for [facility] Diagnoses Pneumothorax J93.9 Pleural effusion J90 Congestive heart failure I50.9 Heart failure chronicity: unspecified Heart failure type: unspecified Atrial fibrillation I48.91 Diabetes mellitus E11.22 Diabetes mellitus type: type 2 Diabetes mellitus termite control technician insulin use: unspecified termite control technician insulin use status Diabetes mellitus complication status: with kidney complications Diabetes mellitus complication detail: with chronic kidney disease Chronic kidney disease stage: unspecified stage
--- NOTE | 2021-11-24 11:02 | PC.CHAP ---
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 soil conservation technician visit [] Patient/Family/Request visit [] Outpatient visit [] Follow-up visit [] Physician referral [] Code/Alert [x] Routine visit [] Staff referral [] Actively dying [] Patient sleeping [] Family support [] [] Out of room [] Palliative care [] [] Receiving care in room [] Pre-surgical visit [] Trauma [] Long length of stay [] ICU visit [] Other: Relational/Emotional Strength [x] Patient feels connected with others/family/visitors/staff [] Distress [] Loneliness/isolation [] Abandonment Spirituality of Patient [x] Person of Eulalia [] Attends Jehovah[employer] Witness of their [place] [x] Believes in Prayer [] Reads Bible or Holiness materials [] There are Spiritual issues to be addressed Computer Technician Interventions [x] Prayer [x] Active listening [] Non-anxious presence [] Spiritual/emotional support [] Crisis/trauma care [] Spiritual counseling [] Bereavement support [] Provided bereavement packet [] Provided Bible/devotional materials [] Provided toy/stuffed animal, coloring book to patient or family member [] Provided Communion [] Anointing/Deeth [] Salvation [x] Completed spiritual assessment [] Other: Impact on Illness or Injury [] Angry [] Fearful [] Anxious [] Often cries [] Exhaustion [] Unable to work [] Unable to attend hoahaoism [] Unable to walk/stand [] Unable to read [] Unable to drive [] Unable to eat/drink [] Unable to sleep [] Unable to be with family [] Patient intubated [] Other: Summary Time spent with patient 10 min
--- NOTE | 2021-11-24 11:03 | PC.NURSE ---
LEDGER POSTER reported to nurse that patient was bradycardic, Heart rate in the 40's. Nurse rechecked vitals. Palpation reveals the patient to have a heart rate of 57. SPO2 of 96% on room air. Manual BP of 116/57. Temperature of 97.5. Patient has no complaints and does not appear to be in any distress. Patient received a dose of metoprolol 2 hours ago.
--- NOTE | 2021-11-24 11:19 | PC.NURSE ---
Patient's heart rate briefly dropped to 39. Nurse alerted Dr bhat. No new orders received. Dr bhat advised to continue to monitor and he will review the metoprolol dosing
[2021-11-24 11:51] LABS: Glucose Point of Care 185 mg/dL (70-110)
[2021-11-24] MEDS: insulin lispro 100 unit/1 mL SUBCUT ×2 (12:12→21:07)
[2021-11-24] MEDS: enoxaparin 30 mg/0.3 mL Syringe SUBCUT (14:04)
[2021-11-24 15:11] LABS: Glucose Point of Care 90 mg/dL (70-110)
[2021-11-24 18:18] LABS: Glucose Point of Care 84 mg/dL (70-110)
[2021-11-24] MEDS: doxazosin 4 mg Tablet PO (18:18)
[2021-11-24] MEDS: lisinopril 20 mg Tablet PO (18:18)
[2021-11-24] MEDS: metoprolol tartrate 25 mg Tablet 37.5 MG PO (18:18)
--- NOTE | 2021-11-24 18:30 | XRR_ITS ---
PROCEDURE INFORMATION: Exam: XR Chest Exam date and time: 11/24/2021 6:31 PM Age: 76 years old Clinical indication: Other: Pneumothorax; Additional info: Pneumothorax, timed for 1830 TECHNIQUE: Imaging protocol: XR of the chest. Views: 1 view. COMPARISON: CR XR chest 1V portable [id number] 11/24/2021 9:16 AM FINDINGS: Tubes, catheters and devices: Stable right pleural drain. Lungs: Stable consolidation in the right lung base. The left lung is clear. Right upper lobe calcified granuloma. Pleural spaces: Slightly increased lower right pneumothorax with pleural separation of 2.2 cm. Heart/Mediastinum: Unremarkable. No cardiomegaly. Bones/joints: Unremarkable. XR/XR chest 1V portable [id number] IMPRESSION: 1. Slightly increased right pneumothorax with pleural drain in place.
--- NOTE | 2021-11-24 18:30 | PC.NURSE ---
SHift SUmmary: Uneventful shift. Patient spent most of the day in bed, but was up to a chair for about 4 hours. Total chest tube output during shift is 260mL, with most coming after transferring to the chair. Chest tube was clamped around 1300 so no firther output was measured pending Xray per Dr garza. Patient became bradycardic after receiving morning metoprolol and hydralazine, Dr bhat was notified and he adjusted metoprolol dose.
--- NOTE | 2021-11-24 19:28 | PC.NURSE ---
Nurse attempted to alert Dr garza to chest Xray results. NUrse was unable to reach Dr garza. Nurse called Dr bhat and was advised to unclamp the chest tube to water seal
[2021-11-24 20:59] LABS: Glucose Point of Care 179 mg/dL (70-110)
[2021-11-24] MEDS: atorvastatin 40 mg Tablet 20 MG PO (21:07)
[2021-11-25] VITALS (9 sets, daily range): BP systolic 112–121; BP diastolic 55–67; PULSE 60–70; RESP 16–18; TEMP 36.7–37.2; O2SAT 92–96
[2021-11-25 04:22] LABS: Basophils # 0.1 10^3/uL (0.0-0.1); Basophils % 0.8 %; Eosinophils # 0.1 10^3/uL (0.0-0.8); Eosinophils % 1.5 %; Hematocrit 30.9 % (42.0-52.0); Hemoglobin 9.8 g/dL (11.7-16.6); Lymphocytes # 1.8 10^3/uL (0.8-4.8); Lymphocytes % 23.6 %; Mean Corpuscular HGB Conc 31.7 g/dL (30.0-36.0); Mean Corpuscular Hemoglobin 28.1 pg (28.0-34.0); Mean Corpuscular Volume 88.5 fl (80-94); Mean Platelet Volume 9.7 fL (7.4-10.4); Monocytes # 0.7 10^3/uL (0.2-0.9); Monocytes % 9.5 %; Neutrophils # 4.83 10^3/uL (1.8-7.7); Neutrophils % 64.3 %; Nucleated Red Blood Cells % 0 %; Platelet Count 255 10^3/cmm (130-400); Red Blood Count 3.49 10^6/uL (4.1-5.3); White Blood Count 7.5 10^3/uL (4.0-10.0)
[2021-11-25 04:48] LABS: Anion Gap 13.6 (5-19); Blood Urea Nitrogen 34 mg/dL (8-23); Calcium 7.8 mg/dL (8.5-10.5); Carbon Dioxide 26 mmol/L (22-29); Chloride 100 mmol/L (98-107); Glucose 81 mg/dL (65-115); Osmolality Calculated 289 mOsm/kg (285-295); Potassium 3.6 mmol/L (3.5-5.1); Sodium 136 mmol/L (136-145)
[2021-11-25] MEDS: aspirin 81 mg Chew Tablet PO (05:54)
--- NOTE | 2021-11-25 06:00 | PC.NURSE ---
BP 115/55 and pulse 64, Dr. Bush made aware and order received to hold amlodipine but give lasix
[2021-11-25 06:28] LABS: Glucose Point of Care 88 mg/dL (70-110)
[2021-11-25] MEDS: FUROsemide 40 mg Tablet PO ×2 (06:42→14:50)
--- NOTE | 2021-11-25 07:39 | XR_ITS ---
WS: [id number] Portable AP upright chest, 11/25/2021 Clinical Data: ptx Comparison: Portable chest, 11/24/2021, 1832 hours Findings: The right basilar pneumothorax has diminished. There is still a right basilar chest tube. T he densities in the right lower lobe remain the same. The heart is enlarged. The left lung is clear. Monitor leads are on the chest wall. XR/XR chest 1V portable [id number] Impression: 1. Decrease in right basilar pneumothorax. 2. No change in position of right basilar chest tube. 3. No change in densities in right lower lobe and cardiomegaly.
--- NOTE | 2021-11-25 08:06 | P.PN_ITS ---
Subjective Subjective: Ole reports he is doing okay. He denies any shortness of breath and chest discomfort. Upon sitting up for his x-ray, fluid filled his chest tube chamber and he reported some shortness of breath. He is eager to go home. Medications: Reviewed: Yes Vitals/I&O/Wt Last Vital Signs Temp 98.7 F 11/25/21 07:25 Pulse 62 11/25/21 07:25 Resp 16 11/25/21 07:25 BP 114/60 11/25/21 07:25 Pulse Ox 94 11/25/21 07:25 11/24/21 11/25/21 11/25/21 22:59 06:59 14:59 Intake Total 240 / 840 60 / 900 180 / 180 Output Total 540 / 815 50 / 865 40 / 40 Balance -300 / 25 10 140 / 140 Weight last 48 hrs Weight 74.389 kg Physical Exam Narrative: General exam is a white male, no obvious respiratory distress, on no oxygen. Chest tube without leak Neck is supple no lymphadenopathy thyromegaly Cardiovascular irregular, irregular. No murmur. Lungs diminished breath sounds bilaterally. No wheezing. Right-sided chest tube noted. Abdomen is soft nontender positive bowel sounds. No obvious organomegaly Extremities no cyanosis clubbing or edema, cap refill brisk Skin no rash Data : 11/25/21 03:10 11/25/21 03:10 Micro: Microbiology 11/23/21 13:45 Mycobacterial Smear - Preliminary Body Fluids - Pleura 11/23/21 13:45 Gram Stain - Final Pleural Fluid Body Fluid Culture - Preliminary A&P Assessment and plan (1) Pneumothorax: Received chest tube yesterday, secondary to hydropneumothorax. Approximately 1 L removed. He had a significant amount of fluid drained into the box this morning but it has yet to be quantified. 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 He is overall negative this hospital stay. Continue home medications Status: Acute Qualifiers: Heart failure chronicity: unspecified Heart failure type: unspecified Qualified Code(s): I50.9 - Heart failure, unspecified (4) Atrial fibrillation: Currently rate controlled Metoprolol dose decreased slightly secondary to some bradycardia into the low 4 0s, upper 30s. This is improved with reduction of dose. We will not start full anticoagulation currently, but will discuss with patient prior to discharge. 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 Qualified C ode(s): E11.22 - Type 2 diabetes mellitus with diabetic chronic kidney disease Plan Multiple other medical problems as outlined in past medical history Full code Lovenox for DVT prophylaxis Attestations Medical Necessity Statement*: Needs continued hospitalization with chest tube placement pending definitive plan for right hydropneumothorax, probable trapped lung Coding Level of Care Code Acute Sports Marketer for [facility] Fwd Diagnoses Pneumothorax J93.9 Pleural effusion J90 Congestive heart failure I50.9 Heart failure chronicity: unspecified Heart failure type: unspecified Atrial fibrillation I48.91 Diabetes mellitus E11.22 Diabetes mellitus type: type 2 Diabetes mellitus mcc insulin use: unspecified 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
--- NOTE | 2021-11-25 08:26 | CT_ITS ---
WS: [id number] CT CHEST TECHNIQUE: Noncontrast CT of the chest with coronal and sagittal reformatted images. CLINICAL INFORMATION: Hydropneumothorax COMPARISON: None. DLP: 587.[address] scans at [facility] use at least one of these dose optimization techniques: automated e xposure control; mA and/or kV adjustment per patient size (includes targeted exams where dose is matc hed to clinical indication); or iterative reconstruction. FINDINGS: Moderate RIGHT hydropneumothorax measuring approximately 50% with RIGHT chest tube. Small RIGHT pleur al effusion. Chest tube appears in good position in the RIGHT anterior lower pleural cavity. Recommen d correlation with chest tube function. Pneumothorax mainly layering anteriorly and laterally. Soft tissue opacity involving the partially collapsed RIGHT middle lobe measuring approximately 7.0 x 4.1 cm nonspecific but suspicious for neoplasm. Additional peripheral pleural thickening involving t he RIGHT upper lobe posteriorly and laterally. Partial consolidation involving the RIGHT lower lobe p osteriorly. Small RIGHT pleural effusion. Mild narrowing of the distal RIGHT mainstem bronchus and br onchus intermedius distally. LEFT lung is well aerated. Small LEFT pleural effusion. Aortic calcification. Normal caliber thoracic aorta. Proximal main pulmonary arteries are slightly pr ominent which can be seen pulmonary arterial hypertension. Coronary calcification. RIGHT adrenal glan d is normal. LEFT adrenal gland is normal. LEFT renal atrophy. Splenic artery calcification. Splenic granulomas. Small esophageal hiatal hernia. No mediastinal lymphadenopathy. No axillary lymphadenopat hy. CT/CT chest wo con [id number] IMPRESSION: 1. Moderate RIGHT hydropneumothorax appears stable since the recent chest radi ograph. Lack of reexpansion of the RIGHT lung. 2. Pneumothorax measures approximately 50% layering anteriorly and laterally. RIGHT chest tube appears in good position. Recommend correlation with chest tub e function. 3. Soft tissue opacity involving the RIGHT partially collapsed middle lobe ricarda suring 4.1 x 6.9 cm nonspecific but suspicious for neoplasm. Recommend further evaluation. 4. Peripheral soft tissue thickening involving the RIGHT upper lobe posteriorl y and laterally. Additional peripheral consolidation and soft tissue thickening along the RIGHT lower lobe posteriorly with adjacent RIGHT pleural effusion. 5. Small LEFT pleural effusion. 6. No other acute findings. Message LEFT for Adrian Woods MD at 11/25/2021 10:18 AM.
--- NOTE | 2021-11-25 08:46 | PM.PN ---
Subjective Subjective: Yesterday afternoon, his chest tube was clamped followed by a repeat chest x-ray in approximately 4 hours. According to the radiology read the repeat chest x-ray around 6 PM yesterday, there was slightly increased right pneumothorax. However, to me it appears to be stable. The chest tube was unclamped yesterday. Repeat chest x-ray this morning revealed possible improvement in the right basilar pneumothorax. And the patient was set up for the chest x-ray, there has been a significant fluid drainage from the pleural cavity. I have examined the patient this morning. After his atrium was changed, there was no air leak with forced expiratory maneuver. There is also no air leak on suction. The patient appeared to be comfortable with mild discomfort in the chest. His pleural fluid analysis is consistent with lymphocyte predominant, protein discordant exudative pleural effusion. 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 The microbiologic work-up of the pleural fluid had been negative so far. Medications: Reviewed: Yes Vitals/I&O/Wt Last Vital Signs Temp 98.7 F 11/25/21 07:25 Pulse 70 11/25/21 08:23 Resp 16 11/25/21 07:25 BP 114/60 11/25/21 07:25 Pulse Ox 95 11/25/21 08:23 11/24/21 11/25/21 11/25/21 22:59 06:59 14:59 Intake Total 240 / 840 60 / 900 180 / 180 Output Total 540 / 815 50 / 865 40 / 40 Balance -300 / 25 10 / 35 140 / 140 Weight last 48 hrs Weight 164 lb Physical Exam Narrative: General: Patient is awake alert and oriented, in no distress. Neck: No JVD Respiratory: Auscultation: Reduced breath sound bilaterally, significantly reduced breath sound in the right lateral and posterior hemithorax compared to the left Cardiovascular: Irregularly irregular rhythm, no murmur Abdomen: Soft, nontender, nondistended, positive bowel sound Musculoskeletal: No obvious joint deformity Skin: No rash Neuro: Mental status is normal, no gross cranial nerve deficit, no gross motor deficit Data : 11/25/21 03:10 11/25/21 03:10 Micro: Microbiology 11/23/21 13:45 Mycobacterial Smear - Preliminary Body Fluids - Pleura 11/23/21 13:45 Gram Stain - Final Pleural Fluid Body Fluid Culture - Preliminary Other data: I have reviewed the patient's laboratory microbiologic and rheologic data. A&P Assessment and plan (1) Hydropneumothorax: This is a 76-year-old gentleman who was presented to the hospital after incidentally found to have right-sided hydropneumothorax. This is the second time the patient has developed hydropneumothorax. The first time was in April 2021. 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 The patient had a pleural fluid analysis in April 2021 which was consistent with neutrophil predominant exudative pleural effusion. 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 There is incomplete expansion of the right lung despite the chest tube being in place. Yesterday, I had tried the trial of chest tube clamping, according to my read there had been no significant change in the pneumothorax yesterday. However, as this was officially read as increasing size of the right pneumothorax, the chest tube was unclamped. This morning after changing the atrium, the patient had no air leak on suction, or forced expiratory maneuvers or tidal breathing. I still put the patient on low wall suction. I am going to obtain a chest x-ray in 30 minutes to an hour. I believe the pneumothorax will persist. If that is the case, following that, the patient will undergo a noncontrast CT scan of the chest to assess the lung anatomy better. We do not have an explanation why the patient had 2 episodes of pneumothoraces. Following the CT scan, I will clamp the tube. We will perform a repeat chest x-ray in 4 hours and if the pneumothorax is stable, I will remove the chest tube. However, the definitive treatment for this patient is decortication. I will discuss this with his son whom I have called this morning but he was not able to apple picking supervisor. The decortication could be performed either as outpatient or inpatient depending on the patient's wishes. Status: Acute (2) Congestive heart failure: The patient has heart failure with mild reduced ejection fraction. He is optimized. The recurrence of pleural effusion on the right side is likely not secondary to the heart failure but rather the trapped lung physiology. 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
--- NOTE | 2021-11-25 08:57 | XR_ITS ---
WS: [id number] Portable AP upright chest, 11/25/2021, 0908 hours Clinical Data: EVALUATION OF PNEUMOTHORAX Comparison: Portable chest, 11/25/2021, 0757 hours. Findings: The right basilar pneumothorax has increased. The right chest tube remains in position. The heart remains enlarged. Right lower lobe densities remain the same. The left lung is clear. XR/XR chest 1V portable [id number] Impression: Slight increase in right basilar pneumothorax compared to earlier chest x-ray.
[2021-11-25] MEDS: potassium chloride ER 10 mEq Tablet PO (09:07)
--- NOTE | 2021-11-25 10:22 | PC.NURSE ---
Patient CTU clamped at 0930
--- NOTE | 2021-11-25 10:34 | PC.NURSE ---
Nurse Mya DICKENS from ICU, came down to switch out new atrium as current atrium is on back order and the ocean that is provided is not compatible tubing. RN changed tubing at insertion point at patient causing a second dressing change within short time frame.
[2021-11-25 11:49] LABS: Glucose Point of Care 139 mg/dL (70-110)
--- NOTE | 2021-11-25 13:22 | XR_ITS ---
WS: [id number] Portable AP semiupright chest, 11/25/2021, 1344 hours Clinical Data: chest tube Comparison: Portable chest, 11/25/2021, 0908 hours Findings: The right basilar pneumothorax has increased slightly. The right basilar chest tube remains in the same position. The densities in the partially collapsed right lung remain the same. XR/XR chest 1V portable [id number] Impression: Slight increase in right basilar pneumothorax.
[2021-11-25] MEDS: enoxaparin 30 mg/0.3 mL Syringe SUBCUT (14:58)
--- NOTE | 2021-11-25 15:18 | PC.NURSE ---
Physician at bedside to remove CTU, no complications, Occlusive dressing placed, patient educated.
--- NOTE | 2021-11-25 18:24 | P.DS_ITS ---
Discharge Providers Date of Admission: 11/23/21 14:46 Date of Discharge: November 25, 2021 Attending Provider at Admission: Adrian Woods MD Attending Provider at Discharge: Elmer Pierce MD Primary Care Provider: Cristine Raza Diagnoses at Discharge Discharge Diagnosis (1) Hydropneumothorax: Status: Acute (2) Congestive heart failure: Status: Acute Qualifiers: Heart failure chronicity: unspecified Heart failure type: unspecified Qualified Code(s): I50.9 - Heart failure, unspecified Permanent problem details: Ejection fraction 45%, diastolic dysfunction, 04/29 Reason for Visit Reason for Visit: Dr. 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 A chest x-ray was done following this demonstrating a right hydropneumothorax. He was referred to the emergency department, for admission and possible chest tube. When I saw him he appeared stable. Repeat x-ray demonstrated hydropneumothorax. Pulmonary was consulted and a chest tube was placed on November 23, initially with 1000 cc of fluid removed and improvement of the pneumothorax. Fluid appeared transudative, and ultimately grew no organism. During his hospital stay tube was clamped and taken off suction intermittently. 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 Ultimately CT scan was done after fluid was drained and tube on suction it demonstrated still right moderate hydropneumothorax, possible neoplasm secondary to right lung opacity and small left effusion. Pulmonary continue to follow the patient closely and remove the chest tube on November 25, and believed he could be discharged home secondary to his trapped lung physiology. They believed effusion would recur. They recommended he follow-up with pulmonary in clinic in next week with repeat x-ray, and decision whether decortication of the lung would be warranted. Physical Exam Narrative: General exam no distress Neck is supple no lymphadenopathy thyromegaly Cardiovascular regular rate and rhythm Lungs diminished breath sounds on both sides right greater than left Abdomen is soft positive bowel sounds Extremities no cyanosis clubbing or edema Discharge Data Studies Completed and Pending Completed Studies During Hospitalization Category Date Time Status CT chest wo con [id number] Routine Cat Scan 11/25/21 08:26 Completed CXRP [XR chest 1V portable [id number]] Stat Exams 11/25/21 08:57 Completed CXRP [XR chest 1V portable [id number]] Stat Exams 11/25/21 13:22 Completed XR chest 1V portable [id number] Routine Exams 11/24/21 09:10 Completed XR chest 1V portable [id number] Routine Exams 11/24/21 18:30 Completed XR chest 1V portable [id number] Routine Exams 11/25/21 07:39 Completed XR chest 1V portable [id number] Stat Exams 11/23/21 09:00 Completed XR chest 1V portable [id number] Urgent Exams 11/23/21 14:34 Completed Pending at discharge Category Date Time Status Body Fluid Culture & GS Routine Lab 11/23/21 13:45 Results Mycobacteria, Culture w/Fluor Routine Lab 11/23/21 13:45 Results Cytology [PTH] Routine Pth 11/23/21 14:30 Received Radiology Impressions Chest CT 11/25/21 08:26 IMPRESSION: 1. Moderate RIGHT hydropneumothorax appears stable since the recent chest radiograph. Lack of reexpansion of the RIGHT lung. 2. Pneumothorax measures approximately 50% layering anteriorly and laterally. RIGHT chest tube appears in good position. Recommend correlation with chest tube function. 3. Soft tissue opacity involving the RIGHT partially collapsed middle lobe measuring 4.1 x 6.9 cm nonspecific but suspicious for neoplasm. Recommend further evaluation. 4. Peripheral soft tissue thickening involving the RIGHT upper lobe posteriorly and laterally. Additional peripheral consolidation and soft tissue thickening along the RIGHT lower lobe posteriorly with adjacent RIGHT pleural effusion. 5. Small LEFT pleural effusion. 6. No other acute findings. Message LEFT for Adrian Woods MD at 11/25/2021 10:18 AM. Chest X-Ray 11/25/21 13:22 Impression: Slight increase in right basilar pneumothorax. Laboratory Results WBC 7.5 10^3/uL (4.0-10.0) 11/25/21 03:10 RBC 3.49 10^6/uL (4.1-5.3) L 11/25/21 03:10 Hgb 9.8 g/dL (11.7-16.6) L 11/25/21 03:10 Hct 30.9 % (42.0-52.0) L 11/25/21 03:10 MCV 88.5 fl (80-94) 11/25/21 03:10 MCH 28.1 pg (28.0-34.0) 11/25/21 03:10 MCHC 31.7 g/dL (30.0-36.0) 11/25/21 03:10 RDW 14.0 % (12.1-15.1) 11/25/21 03:10 Plt Count 255 10^3/cmm (130-400) 11/25/21 03:10 MPV 9.7 fL (7.4-10.4) 11/25/21 03:10 Neut % (Auto) 64.3 % 11/25/21 03:10 Lymph % (Auto) 23.6 % 11/25/21 03:10 [place] % (Auto) 9.5 % 11/25/21 03:10 Eos % (Auto) 1.5 % 11/25/21 03:10 Baso % (Auto) 0.8 % 11/25/21 03:10 Neut # (Auto) 4.83 10^3/uL (1.8-7.7) 11/25/21 03:10 Lymph # (Auto) 1.8 10^3/uL (0.8-4.8) 11/25/21 03:10 [place] # (Auto) 0.7 10^3/uL (0.2-0.9) 11/25/21 03:10 Eos # (Auto) 0.1 10^3/uL (0.0-0.8) 11/25/21 03:10 Baso # (Auto) 0.1 10^3/uL (0.0-0.1) 11/25/21 03:10 Nucleated RBC % (auto) 0 % 11/25/21 03:10 Nucleated RBCs # 0.0 /100WBC 11/25/21 03:10 PT 16.00 SECONDS (12.1-14.9) H 11/23/21 09:30 INR 1.25 (0.8-1.2) H 11/23/21 09:30 APTT 30.6 SECONDS (23.9-36.7) 11/23/21 09:30 Specimen Type Arterial 11/23/21 09:11 Sample Site Radial, left 11/23/21 09:11 ABG pH 7.47 (7.35-7.45) H 11/23/21 09:11 ABG pCO2 40.8 mmHg (35-45) 11/23/21 09:11 ABG pO2 69.0 mmHg (80.0-100.0) L 11/23/21 09:11 ABG HCO3 29.4 mmol/L (22-26) H 11/23/21 09:11 ABG O2 Saturation 95.2 11/23/21 09:11 ABG Base Excess 5.2 mmol/L (-2.0-2.0) H 11/23/21 09:11 Prashant Test Pos 11/23/21 09:11 A-a O2 Gradient 4.0 mmHg (5-10) L 11/23/21 09:11 Hematocrit 33.0 % (42-52) L 11/23/21 09:11 Hgb O2 Saturation 93.6 % (95-100) L 11/23/21 09:11 Carboxyhemoglobin 1.0 %THgb (0.4-20.1) 11/23/21 09:11 Methemoglobin 0.7 % (0.4-1.5) 11/23/21 09:11 Total Hemoglobin 10.8 g/dL (14-18) L 11/23/21 09:11 Sodium 135.0 mmol/L (131-143) 11/23/21 09:11 Potassium 3.2 mmol/L (3.5-5.0) L 11/23/21 09:11 Glucose 162.0 mg/dL (70-115) H 11/23/21 09:11 Ionized Calcium 1.2 mmol/L (1.1-1.4) 11/23/21 09:11 O2 Delivery Device Room air 11/23/21 09:11 FiO2 21.0 % 11/23/21 09:11 [employer] Cak 11/23/21 09:11 Sodium 136 mmol/L (136-145) 11/25/21 03:10 Potassium 3.6 mmol/L (3.5-5.1) 11/25/21 03:10 Chloride 100 mmol/L (98-107) 11/25/21 03:10 Carbon Dioxide 26 mmol/L (22-29) 11/25/21 03:10 Anion Gap 13.6 (5-19) 11/25/21 03:10 BUN 34 mg/dL (8-23) H 11/25/21 03:10 Creatinine 2.2 mg/dL (0.7-1.2) H 11/25/21 03:10 GFR Calculation Not Reportable 11/25/21 03:10 Glucose 81 mg/dL (65-115) 11/25/21 03:10 POC Glucose 139 mg/dL (70-110) H 11/25/21 11:25 Calculated Osmolality 289 mOsm/kg (285-295) 11/25/21 03:10 Calcium 7.8 mg/dL (8.5-10.5) L 11/25/21 03:10 Total Bilirubin 0.5 mg/dL (0.15-1.2) 11/23/21 10:30 AST 8 U/L (0-40) 11/23/21 10:30 ALT 6 U/L (0-41) 11/23/21 10:30 Alkaline Phosphatase 55 IU/L (40-130) 11/23/21 10:30 Total Protein 6.2 g/dL (6.6-8.7) L 11/23/21 10:30 Albumin 3.5 g/dL (3.5-5.2) 11/23/21 10:30 Globulin 2.7 g/dL (1.3-4.6) 11/23/21 10:30 Fluid Color Madelin 11/23/21 13:45 Fluid Appearance Turbid 11/23/21 13:45 Fluid WBC 796 /uL 11/23/21 13:45 Fluid RBC 6.000 10^3/uL 11/23/21 13:45 Fld Polynuclear WBCs # 0.016 11/23/21 13:45 Fld Polynuclear WBCs % 2.000 % 11/23/21 13:45 Fl Mononucl WBCs #(Auto) 0.780 11/23/21 13:45 Fl Mononuclear % Auto 98.000 % 11/23/21 13:45 Fluid Albumin 2.0 g/dL 11/23/21 13:45 Pleural pH 8.00 (6.5-7.5) H 11/23/21 13:45 Pleural Total Protein 3.1 g/dL 11/23/21 13:45 Pleural LDH 89 U/L 11/23/21 13:45 Pleural Glucose 105.0 mg/dL 11/23/21 13:45 Pleural Triglycerides 10 mg/dL 11/23/21 13:45 Vitals Last Vital Signs Temp 98.1 F 11/25/21 17:00 Pulse 61 11/25/21 17:00 Resp 16 11/25/21 17:00 BP 115/64 11/25/21 17:00 Pulse Ox 92 11/25/21 17:00 Discharge Plan Discharge Patient Disposition: Home Condition: Stable Prescriptions: New metoprolol tartrate 25 mg Tablet 37.5 mg PO BID Qty: 90 0RF Continued glipizide 5 mg tablet 5 mg PO QPM 0RF potassium chloride 10 mEq tablet extended release 10 meq PO BID 0RF amlodipine 10 mg Tablet 10 mg PO QAM 0RF aspirin 81 mg Tablet,Chewable 81 mg PO QAM 0RF hydralazine 25 mg tablet 25 mg PO BID 0RF ascorbic acid (vitamin C) [Vitamin C] 500 mg Tablet 500 mg PO QAM 0RF doxazosin [Cardura] 4 mg tablet 4 mg PO QPM 0RF zinc 50 mg Tablet 50 mg PO DAILY 0RF ergocalciferol (vitamin D2) [Vitamin D2] 1,250 mcg (50,000 unit) capsule 50,000 unit PO Q14D 0RF furosemide [Lasix] 40 mg tablet 40 mg PO BID@,14 0RF lisinopril 20 mg tablet 20 mg PO QPM 0RF simvastatin 20 mg tablet 20 mg PO BEDTIME 0RF Discontinued metoprolol tartrate 50 mg Tablet 50 mg PO BID 0RF Discharge Orders: Discharge Order (Routine); Ordered 11/25/21 Ordered By: [employer] Referrals: DatarGerald MD [Physician] - 12/10/21 10:00 am (moved appointment 12/27 to 12/10) Cristine Raza [Primary Care Provider] - 12/01/21 12:00 pm Discharge Diet: Cardiac and Diabetic Discharge Activity: Increase activity as tolerated Patient Instructions: Metoprolol (By mouth), Spontaneous Pneumothorax (GEN), Opioid Safety Activity Restrictions/Additional Instructions: Take all meds as prescribed. Return for any worsening shortness of breath, chest pain. Keep follow up with pulmonary in 1 week. Discharge Attestations Time Spent in Discharge Care*: greater than 30 min Quality Metrics Clinical Quality Measures [ No reported AMI, CVA or VTE this stay] Coding Level of Care Code Acute Chg FW DC note Diagnoses Hydropneumothorax J94.8 Congestive heart failure I50.9 Heart failure chronicity: unspecified Heart failure type: unspecified
== END 2021-11-25 17:11 | disposition home or self-care (01) | DRG 187 ==
LOC: ER 09:32 → GILAB 13:03 → MEDSURG 14:47
PROVIDERS: Admitting Provider Internal Medicine Critical Care Medicine; Emergency Provider Family Medicine; PCP Nurse Practitioner Family; Visit Provider Internal Medicine
PROC: 0W9930Z Drainage of Right Pleural Cavity with Drainage Device, Percutaneous Approach (ICD-10-PCS; CPT 32550; principal; 2021-11-23 13:20)
DX: J94.8 Other specified pleural conditions (principal); I13.0 Hypertensive heart and chronic kidney disease with heart failure and stage 1 through stage 4 chronic kidney disease, or unspecified chronic kidney disease; I50.40 Unspecified combined systolic (congestive) and diastolic (congestive) heart failure; J44.9 Chronic obstructive pulmonary disease, unspecified; N18.9 Chronic kidney disease, unspecified; E11.22 Type 2 diabetes mellitus with diabetic chronic kidney disease; I48.91 Unspecified atrial fibrillation; Z87.891 Personal history of nicotine dependence; Z79.84 Long term (current) use of oral hypoglycemic drugs; Z79.82 Long term (current) use of aspirin
CPT/HCPCS: 32551; 36415; 36416; 36600; 71045; 71046; 71250; 80048; 80051; 80053; 80503; 82042; 82330; 82805; 82945; 82962; 83615; 83986; 84157; 84478; 85025; 85610; 85730; 87015; 87070; 87075; 87116; 87205; 87206; 87801; 88108; 88305; 89050; 93005; 96372; 99214; 99285; J1650; J1815

== ENCOUNTER → 2021-12-10 09:51 | Outpatient (BNVA) | payer MEDICARE, SELFPAY | PROVIDERS: PCP Nurse Practitioner Family; Visit Provider Internal Medicine Pulmonary Disease | DX: I50.9 Heart failure, unspecified (principal); J90 Pleural effusion, not elsewhere classified; N18.9 Chronic kidney disease, unspecified; J94.8 Other specified pleural conditions; J98.19 Other pulmonary collapse; Z87.891 Personal history of nicotine dependence | CPT/HCPCS: 71046; 99214 ==